=== PATIENT | male | born 1940 | race Caucasian/White ===

== ENCOUNTER 2017-09-09 11:34 | Inpatient (IN) | payer BC, MEDICARE ==
[~2017-09-09] VITALS: Ht 177.8 cm; Wt 62.6 kg
[~2017-09-09 11:34] MED LIST: ACET-7169 PO; ALEN70TA52 PO; AMLO10TA PO; ASPI325T49 PO; ATOR20TA40 PO; ATRO1TAB PO; BUS5 PO; CALC-567 PO; CALC-846 PO; CARV3.122 PO; CLON0.5T11 PO; COL250 PO; FERR325E14 PO; GABA300C PO; IMO2 PO; KEP500 PO; LACT1.4C PO; LANTUS SUBQ; MAGN400S60 PO; MULT-2472 PO; OMEP20TC12 PO; PHO667 PO; SENN-73 PO; SERT100T PO; SUCR1TAB35 PO; SYN.05 PO; TAMS0.4C96 PO; TRAZ-343 PO; ZOLP10TA1 PO
--- NOTE | 2017-09-09 11:34 | NUR ---
Patient JESSICA ACLMohan from [facility] accompanied by Mynor MCCLURE, transferred to bed 10. RN evaluating patient at bedside.
--- NOTE | 2017-09-09 11:35 | NUR ---
Dr. Guillaume evaluating patient at bedside.
--- NOTE | 2017-09-09 11:37 | NUR ---
Respiratory therapist evaluating patient at bedside.
--- NOTE | 2017-09-09 11:40 | NUR ---
76 year old male in room 10, artemio from [facility]. Pt is on pain management; found unresponsive; EMS called. Pt's blood pressure is low (63/51), Blood sugar 119, respirations 6. Lung sounds are diminished bilaterally. Pt has visible ineguial hernia. Pt is pale. Bradycarda at 52 bpm. LASHONDA, 3mm. Pt was able to respond to some commands - squeezing of left and right hand but unable to answer questions.
[2017-09-09] MEDS ORDERED: NACL 0.9% 1,000 ML IV ONE ×4 (11:42→13:10)
[2017-09-09 11:45] VITALS: BP_SYST 80
[2017-09-09] MEDS ORDERED: NALOXONE 0.4 MG/ML VIAL ONE (11:45)
--- NOTE | 2017-09-09 11:53 | NUR ---
boiler/chiller technician at bedside.
--- NOTE | 2017-09-09 11:56 | NUR ---
ABG DONE WITH NO INCIDENT. PLACED PT ON 3 L NC. NO SOB OR DISTRESS NOTED.
[2017-09-09] MEDS ORDERED: FURO-572 PO (11:59)
[2017-09-09] MEDS ORDERED: ORE25 PO (11:59)
[2017-09-09] MEDS ORDERED: ZOLP10TA1 PO (11:59)
[2017-09-09 12:40] LABS: PROTHROMBIN TIME 9.7 secs (10.8-13.4)
[2017-09-09 12:55] LABS: ANION GAP 12.1 (8-16); CARBON DIOXIDE 26.1 mmol/L (21-32); CHLORIDE 106 mmol/L (98-107); POTASSIUM 4.2 mmol/L (3.5-5.1); SODIUM SERUM 140 mmol/L (136-145)
[2017-09-09 12:56] LABS: GLUCOSE 110 mg/dL (74-106)
[2017-09-09 12:57] LABS: ASPARTATE AMINOTRANSFERASE 25 U/L (15-37); CREATININE 3.4 mg/dL (0.7-1.3); TOTAL BILIRUBIN 0.3 mg/dL (0.0-1.0); UREA NITROGEN, BLOOD 73 mg/dL (7-18)
[2017-09-09 12:58] LABS: ALBUMIN 2.5 g/dL (3.4-5.0); LIPASE 111 U/L (73-393)
[2017-09-09 13:18] LABS: BASOPHILS # (AUTO) 0.1 K/uL (0.00-0.22); BASOPHILS % (AUTO) 0.7 % (0.0-2.0); EOSINOPHILS # (AUTO) 0.3 K/uL (0-0.4); EOSINOPHILS % (AUTO) 2.6 % (0.0-4.0); LYMPHOCYTES # (AUTO) 1.6 K/uL (2.0-11.5); LYMPHOCYTES % (AUTO) 15.2 % (20.5-51.1); MEAN CORPUSCULAR HEMOGLOBIN 28 pg (27-31); MEAN CORPUSCULAR HGB CONC 32 g/dL (33-37); MEAN CORPUSCULAR VOLUME 87.4 fL (80-94); MONOCYTES # (AUTO) 0.8 K/uL (0.8-1.0); MONOCYTES % (AUTO) 7.2 % (1.7-9.3); NEUTROPHILS # (AUTO) 8.1 K/uL (1.8-7.7); NEUTROPHILS % (AUTO) 74.3 % (42.2-75.2); PLATELET COUNT (AUTO) 234 K/uL (140-450); RED BLOOD CELL COUNT(AUTO) 2.41 MIL/uL (4.20-6.10); WHITE BLOOD COUNT (AUTO) 10.9 K/uL (4.8-10.8)
[2017-09-09 13:21] LABS: HEMOGLOBIN 6.8 g/dL (12.0-18.0)
--- NOTE | 2017-09-09 13:22 | NUR ---
CENTRAL LINE CONSENT SIGNED BY TWO RN'S, MIGUELINA MADE AWARE.
[2017-09-09] MEDS ORDERED: NALOXONE 0.4 MG/ML VIAL IVP ONE (13:45)
--- NOTE | 2017-09-09 13:48 | NUR ---
Pt is resting in bed, denies all pain. Dr. Guillaume at bedside for re-evaluation
[2017-09-09] MEDS ORDERED: ZOLPIDEM 5 MG TAB PO PRN (14:25)
[2017-09-09] MEDS ORDERED: LORazepam 2 MG/ML VIAL IM/IVP PRN (14:25)
[2017-09-09] MEDS ORDERED: DOCUSATE SODIUM 100 MG GELCAP PO PRN (14:25)
[2017-09-09] MEDS ORDERED: MORPHINE SULFATE 2 MG/ML SYR IVP PRN (14:25)
[2017-09-09 14:28] LABS: APPEARANCE,URINE CLEAR (CLEAR); BILIRUBIN,URINE NEGATIVE (NEGATIVE); BLOOD, URINE NEGATIVE (NEGATIVE); COLOR,URINE YELLOW (YELLOW); LEUKOCYTE ESTERASE ,URINE NEGATIVE (NEGATIVE); NITRITE, URINE NEGATIVE (NEGATIVE); PH,URINE 5.5 (5.0-9.0); UGLUCOSE NEGATIVE (NEGATIVE)
[2017-09-09] MEDS ORDERED: ALBUTEROL SULFATE/IPRATROPIU 3 ML SOL IH PRN (14:30)
[2017-09-09] MEDS ORDERED: MECLIZINE 25 MG TAB PO PRN (14:40)
[2017-09-09 14:47] LABS: BARBITURATE, URINE NEGATIVE ng/ml (NEG <=200); BENZODIAZEPINE, URINE POSITIVE ng/mL (NEG <=200); CANNABINOID, URINE NEGATIVE ng/mL (NEG <=50); COCAINE, URINE NEGATIVE ng/mL (NEG <=300); OPIATE, URINE NEGATIVE ng/mL (NEG <=2000); PHENCYCLIDINE SCREEN,URINE NEGATIVE ng/mL (NEG <=25)
--- NOTE | 2017-09-09 14:53 | NUR ---
CALL PLACED TO [facility] AND SPOKE WITH DANIELLE BLACK AND PROVIDED VERBAL UPDATE ON PATIENTS CONDITION AND WILL FAX OVER CLINICAL REVIEW. FAX [phone] AND PHONE [phone] EXT [phone] Addendum: 09/09/17 at 1459 by Imani Rosado CM ENTERED INTO WRONG CHART
[2017-09-09] MEDS ORDERED: LOPERAMIDE 2 MG CAP PO SCH (15:00)
[2017-09-09] MEDS ORDERED: DIPHENOXYLATE HCL PO PRN (15:00)
[2017-09-09] MEDS ORDERED: ATROPINE PO PRN (15:00)
--- NOTE | 2017-09-09 15:00 | NUR ---
TRANSFERED PT TO ICU BED 1 FOR CONTINUATION OF CARE. GAVE BEDSIDE REPORT IN ICU. PT'S BP CONTINUTED TO RISE AND STABLIZE. PT WAS a&0X3 UPON TRANSFER.
--- NOTE | 2017-09-09 15:03 | NUR ---
RELIEVED REPORT FROM ER NURSE, MARIVEL. PT STABLE. SEGURA IN PLACE. TWO IV SIGHTS, PATENT AND ASYMPTOMATIC. PUPILS EQUAL AND REACTIVE TO LIGHT. PT A&Ox2. CONFUSED AND LETHARGIC AT TIMES HX ALZHEIMER. PT SKIN COOL AND DRY. LUNG SOUNDS CLEAR PT ON 3 L NC, S1S2 HEARD, BOWEL SOUNDS ACTIVE. SMALL WOUND ON SACRAL AREA AND REDNESS NOTED IN ABD SKIN FOLD. NO PAIN AT THIS TIME. WILL CONTINUE TO MONITOR. SINUS LADY ON MONITOR.
[2017-09-09 15:10] VITALS: BP 113/48
[2017-09-09] MEDS ORDERED: NALOXONE 0.4 MG/ML VIAL IVP STA (15:19)
[2017-09-09] MEDS ORDERED: DIPHENOXYLATE /ATROPINE 2.5 MG TAB PO PRN (15:25)
[2017-09-09] MEDS: NACL 0.9% 1,000 ML IV SCH (15:26)
[2017-09-09 15:44] LABS: MAGNESIUM 3.2 mg/dL (1.8-2.4)
[2017-09-09 15:45] LABS: THYROID STIMULATING HORMONE 3.21 uIU/mL (0.34-3.74)
[2017-09-09 16:00] VITALS: BP 115/37
[2017-09-09] MEDS ORDERED: INSULIN LISPRO SLIDING SCALE 100 UNITS/ML VIAL SUBQ PRN (16:05)
[2017-09-09] MEDS ORDERED: DEXTROSE 50% 50 ML SYR IVP PRN (16:05)
--- NOTE | 2017-09-09 16:18 | NUR ---
CALLED SISTER DEON MINA #[phone], LEFT MESSAGE AND CALL BACK #[phone]. WAITING FOR CALL BACK.
[2017-09-09] MEDS: BLOOD GLUCOSE MONITORING 1 DEV DEV FS SCH ×2 (17:05→21:44)
[2017-09-09] MEDS: HYDROcodone/APAP 5/325 MG 1 TAB TAB PO PRN ×2 (17:13→21:44)
[2017-09-09] MEDS: SUCRALFATE 1 GM TAB PO SCH (17:14)
[2017-09-09] MEDS ORDERED: LORazepam 2 MG/ML VIAL IVP SCH (17:32)
--- NOTE | 2017-09-09 17:45 | NUR ---
PT VSS. BLOOD TRANSFUSION STARTED AT 1715. EDUCATION GIVEN REGARDING BLOOD TRANSFUSION REACTION. PT MADE AWARE TO NOTIFY AND RASHES AND ITCHY BODY. NO TRANSFUSION REACTION NOTED DURING TRANSFUSION. VS REMAIN STABLE. SITE INTACT.
--- NOTE | 2017-09-09 17:45 | NUR ---
AT BEDSIDE TO PLACE CENTRAL LINE. WILL FOLLOW UP.
[2017-09-09 18:00] VITALS: BP 102/62
--- NOTE | 2017-09-09 18:30 | NUR ---
CENTRAL LINE PLACEMENT PROCEDURE COMPLETED BY DR. SPANN. ASSISTED NEEDED. NO ACTIVE BLEEDING AT SITE. DRESSING INTACT. PT TOLERATED WELL. KEPT PT IN COMFORTABLE POSITION. NO CHANGE IN CONDITION. WILL CONTINUE TO MONITOR.
[2017-09-09] MEDS ORDERED: DOPamine 400 MG/D5W PREMIX 250 ML IV SCH (18:40)
--- NOTE | 2017-09-09 18:44 | NUR ---
X-RAY AT BEDSIDE.
[2017-09-09] MEDS: ALBUTEROL SULFATE/IPRATROPIU 3 ML SOL IH SCH (18:54)
--- NOTE | 2017-09-09 18:55 | NUR ---
RT AT BEDSIDE.
--- NOTE | 2017-09-09 19:18 | NUR ---
US LEFT SIDE CAROTID ON PROCESS.
--- NOTE | 2017-09-09 19:21 | NUR ---
GAVE REPORT TO NIGHT NURSE PT STABLE AND ALERT.
--- NOTE | 2017-09-09 19:22 | NUR ---
RECEIVED REPORT FROM AM NURSE. PT AAO X 3. SOME EPISODES OF CONFUSION NOTED. FOLLOWS COMMANDS. ABLE TO VERBALIZE NEEDS. AFEBRILE. IV SITE L WRIST 22G. PATENT INTACT. IV SITE R AC 20G PATENT INTACT. R IJ TRIPLE LUMEN PATENT INTACT. LUNG SOUNDS CTA BILAT. ON NC 2LPM. SINUS LADY ON MONITOR. F/C IN PLACE. PATENT. SACRAL WOUND NOTED. ABD FOLD REDNESS NOTED. BED IN LOWEST POSITION. SEIZURE PRECAUTIONS IMPLEMENTED. CALL LIGHT WITHIN REACH. WILL CONTINUE TO MONITOR
[2017-09-09 20:00] VITALS: BP 121/52
[2017-09-09] MEDS: CALCIUM CARB/VIT-D 500 MG/200 IU 1 TAB PO SCH (20:13)
[2017-09-09] MEDS: DOCUSATE SODIUM 250 MG GELCAP PO SCH (20:13)
[2017-09-09] MEDS: FERROUS SULFATE 325 MG TABEC PO SCH (20:13)
[2017-09-09] MEDS: levETIRAcetam 500 MG TAB PO SCH (20:13)
[2017-09-09] MEDS: SERTRALINE 50 MG TAB PO SCH (20:14)
[2017-09-09] MEDS ORDERED: NON-FORMULARY ITEM (Calcium Carbonate/Vitamin D3 (Oyster Shell Calcium-Vit D Tab) 1 TAB) PO SCH (21:00)
[2017-09-09] MEDS ORDERED: ZOLPIDEM 10 MG TAB PO SCH ×2 (21:00)
[2017-09-09] MEDS ORDERED: CALCIUM CARBONATE PO SCH (21:00)
[2017-09-09] MEDS ORDERED: CARVEDILOL 3.125 MG TAB PO SCH (21:00)
[2017-09-09] MEDS ORDERED: NON-FORMULARY ITEM (Oxycodone HCl/Acetaminophen (Oxycodone-Acetaminophen 10-325) 1 TAB) PO SCH (21:00)
[2017-09-09] MEDS ORDERED: traZODone 50 MG TAB PO SCH (21:00)
[2017-09-09] MEDS ORDERED: VITAMIN D3 PO SCH (21:00)
[2017-09-09] MEDS ORDERED: [UNRECOGNIZED DRUG - OTHER] PO SCH (21:00)
--- NOTE | 2017-09-09 21:25 | NUR ---
CENTRAL LINE DISLODGED. NOTIFIED RESIDENTS OF CENTRAL LINE DISPLACEMENT. DR. PATE AT BEDSIDE TO SEE PATIENT. PATIENT CENTRAL LINE REMOVED AND DRESSING APPLIED TO RIJ SITE
[2017-09-09 22:00] VITALS: BP 116/60
[2017-09-09 22:20] LABS: BASOPHILS # (AUTO) 0.1 K/uL (0.00-0.22); BASOPHILS % (AUTO) 0.7 % (0.0-2.0); EOSINOPHILS # (AUTO) 0.3 K/uL (0-0.4); HEMOGLOBIN 7.7 g/dL (12.0-18.0); LYMPHOCYTES # (AUTO) 1.7 K/uL (2.0-11.5); LYMPHOCYTES % (AUTO) 16.9 % (20.5-51.1); MEAN CORPUSCULAR HEMOGLOBIN 29 pg (27-31); MEAN CORPUSCULAR HGB CONC 32 g/dL (33-37); MEAN CORPUSCULAR VOLUME 88.4 fL (80-94); MONOCYTES # (AUTO) 0.6 K/uL (0.8-1.0); MONOCYTES % (AUTO) 6.5 % (1.7-9.3); NEUTROPHILS # (AUTO) 7.3 K/uL (1.8-7.7); NEUTROPHILS % (AUTO) 72.9 % (42.2-75.2); PLATELET COUNT (AUTO) 232 K/uL (140-450); RED BLOOD CELL COUNT(AUTO) 2.71 MIL/uL (4.20-6.10); RED CELL DISTRIBUTION WIDTH 16.7 % (11.6-13.7)
--- NOTE | 2017-09-09 22:21 | NUR ---
LAB AT BEDSIDE FOR BLOOD DRAW. NO SIGNS OF ACUTE DISTRESS NOTED.
[2017-09-09 22:25] LABS: CHOL/HDL RATIO 2.7 (1-4.5)
[2017-09-10] VITALS (8 sets, daily range): BP systolic 103–134; BP diastolic 41–75
--- NOTE | 2017-09-10 01:30 | NUR ---
PT TAKEN TO RADIOLOGY FOR CT SCAN OF THE HEAD
[2017-09-10] MEDS: ONDANSETRON 4 MG/2 ML VIAL IM/IVP PRN ×2 (01:36→12:34)
--- NOTE | 2017-09-10 01:36 | NUR ---
PT C/O NAUSEA. ZOFRAN PRN GIVEN. WILL CONTINUE TO MONITOR.
--- NOTE | 2017-09-10 01:45 | NUR ---
CT SCAN RESULTS NEGATIVE. NO SIGNS OF ACUTE DISTRESS AT THIS TIME.
--- NOTE | 2017-09-10 03:44 | NUR ---
PT RESTING QUIETLY. NO SIGNS OF ACUTE DISTRESS AT THIS TIME.
[2017-09-10] MEDS: NACL 0.9% 1,000 ML IV SCH ×3 (04:03→23:17)
[2017-09-10] MEDS: LEVOTHYROXINE 0.05 MG TAB PO SCH (05:34)
--- NOTE | 2017-09-10 06:20 | NUR ---
RESIDENT AT BEDSIDE TO EVALUATE PATIENT. MADE AWARE OF CURRENT CONDITION. WILL CONTINUE TO FOLLOW UP ANY NEW ORDERS.
[2017-09-10] MEDS ORDERED: Z-GUARD PASTE TP ONE (06:25)
[2017-09-10] MEDS: BLOOD GLUCOSE MONITORING 1 DEV DEV FS SCH ×4 (06:31→20:49)
[2017-09-10 06:46] LABS: BASOPHILS # (AUTO) 0.1 K/uL (0.00-0.22); BASOPHILS % (AUTO) 0.6 % (0.0-2.0); EOSINOPHILS # (AUTO) 0.3 K/uL (0-0.4); EOSINOPHILS % (AUTO) 3.1 % (0.0-4.0); HEMATOCRIT 21.9 % (36-52); LYMPHOCYTES # (AUTO) 1.3 K/uL (2.0-11.5); LYMPHOCYTES % (AUTO) 12.9 % (20.5-51.1); MEAN CORPUSCULAR HEMOGLOBIN 28 pg (27-31); MEAN CORPUSCULAR HGB CONC 32 g/dL (33-37); MEAN CORPUSCULAR VOLUME 88.2 fL (80-94); MONOCYTES # (AUTO) 0.6 K/uL (0.8-1.0); MONOCYTES % (AUTO) 6.1 % (1.7-9.3); NEUTROPHILS # (AUTO) 7.7 K/uL (1.8-7.7); NEUTROPHILS % (AUTO) 77.3 % (42.2-75.2); PLATELET COUNT (AUTO) 227 K/uL (140-450); RED BLOOD CELL COUNT(AUTO) 2.48 MIL/uL (4.20-6.10); WHITE BLOOD COUNT (AUTO) 9.9 K/uL (4.8-10.8)
[2017-09-10 06:48] LABS: MAGNESIUM 2.7 mg/dL (1.8-2.4); PHOSPHORUS 4.7 mg/dL (2.5-4.9)
[2017-09-10 06:54] LABS: ANION GAP 10.5 (8-16); CARBON DIOXIDE 24.7 mmol/L (21-32); CHLORIDE 110 mmol/L (98-107); CREATININE 2.4 mg/dL (0.7-1.3); GLUCOSE 106 mg/dL (74-106); POTASSIUM 4.2 mmol/L (3.5-5.1); SODIUM SERUM 141 mmol/L (136-145)
[2017-09-10 06:55] LABS: UREA NITROGEN, BLOOD 63 mg/dL (7-18)
[2017-09-10] MEDS: ALBUTEROL SULFATE/IPRATROPIU 3 ML SOL IH SCH ×3 (06:58→19:35)
[2017-09-10] MEDS ORDERED: SIMETHICONE 80 MG TAB.CHEW PO SCH (07:00)
--- NOTE | 2017-09-10 07:14 | NUR ---
ENDORSED CARE TO INCOMING SHIFT. PT IN STABLE CONDITION. SO SIGNS OF ACUTE DISTRESS NOTED SIDE RAILS UP X 4. BED IN LOWEST POSITION. CALL LIGHT WITHIN REACH. SEIZURE PRECAUTIONS IMPLEMENTED.
--- NOTE | 2017-09-10 07:38 | NUR ---
RECEIVED REPORT FROM SENIOR RESEARCH CONSULTANT NURSE, GIOVANNA. PT OSIRIS SCORE -3, PROPOFOL RUNNING AT 25MCG. PT SKIN WARM AND DRY. PT PUPILS PINPOINT UNREACTIVE TO LIGHT. LUNG SOUNDS CLEAR SYMMETRICAL MOVEMENT, S1S2 HEARD SINUS RHYTHM ON MONITOR. ACTIVE BOWEL SOUNDS, NG TUBE IN PLACE ON RIGHT NARES VITAL AF RUNNING AT 50ML/HR. NO RESIDUAL NOTED. SEGURA CATH IN PLACE DRAINING WITH GRAVITY. WOUNDS ON LEFT LOWER LEG, BOTH DRESSINGS DRY AND INTACT. ETT TO VENT: FiO2 35% 500TV RATE 20 PEEP 8. WILL CLOSELY MONITOR Addendum: 09/10/17 at 0743 by Mecca Escalante RN WRONG PATIENT CHARTING
--- NOTE | 2017-09-10 07:43 | NUR ---
RECEIVED REPORT FROM LENS MATCHER NURSE, GIOVANNA. PT SKIN WARM AND DRY. PUPILS EQUAL AND REACTIVE TO LIGHT. 2L NC. LUNG SOUNDS CLEAR BILATERALLY. BOWEL SOUNDS ACTIVE IN ALL QUADRANTS. SEGURA CATH IN PLACE. IVS FLUSHED- PATENT AND ASYMPTOMATIC. BRADYCARDIA ON MONITOR. PT SLEEPING. WILL CONTINUE TO MONITOR.
[2017-09-10] MEDS ORDERED: CALCIUM ACETATE 667 MG TAB PO SCH (08:00)
--- NOTE | 2017-09-10 08:00 | NUR ---
RESIDENT GROUP ROUNDING. SPOKE TO DR VASQUEZ NO CHANGES AT THIS TIME. DR VASQUEZ STATED THAT THE DISPATCHER RADIO WAS INFORMED OF CONSULTATION. WILL FOLLOW UP
[2017-09-10] MEDS: MAGNESIUM HYDROXIDE 2400 MG/30 ML UDC PO SCH (08:26)
[2017-09-10] MEDS: DOCUSATE SODIUM 250 MG GELCAP PO SCH ×2 (08:26→20:49)
[2017-09-10] MEDS: VIT-B COMP/VIT-C/FOLIC ACID 1 TAB PO SCH (08:26)
[2017-09-10] MEDS: levETIRAcetam 500 MG TAB PO SCH ×2 (08:26→20:50)
[2017-09-10] MEDS: SUCRALFATE 1 GM TAB PO SCH ×3 (08:26→17:57)
[2017-09-10] MEDS: ASPIRIN 325 MG TAB PO SCH (08:27)
[2017-09-10] MEDS: TAMSULOSIN 0.4 MG CAP PO SCH (08:27)
[2017-09-10] MEDS: SENNA 8.6 MG TAB PO SCH (08:28)
[2017-09-10] MEDS: CALCIUM CARB/VIT-D 500 MG/200 IU 1 TAB PO SCH (08:28)
[2017-09-10] MEDS: SERTRALINE 50 MG TAB PO SCH ×2 (08:28→20:50)
[2017-09-10] MEDS: FERROUS SULFATE 325 MG TABEC PO SCH ×2 (08:29→20:50)
[2017-09-10] MEDS: GABAPENTIN 300 MG CAP PO SCH (08:36)
[2017-09-10] MEDS: FUROSEMIDE 20 MG TAB PO SCH (08:36)
[2017-09-10] MEDS ORDERED: Z-GUARD PASTE TP PRN (08:45)
[2017-09-10] MEDS ORDERED: amLODIPine 5 MG TAB PO SCH (09:00)
[2017-09-10] MEDS ORDERED: PANTOPRAZOLE 40 MG INJ VIAL IVP SCH (09:00)
[2017-09-10] MEDS ORDERED: NON-FORMULARY ITEM (Omeprazole (Omeprazole) 20 MG) PO SCH (09:00)
[2017-09-10] MEDS ORDERED: HYDROCHLOROTHIAZIDE 25 MG TAB PO SCH (09:00)
[2017-09-10] MEDS ORDERED: MULTIVITAMIN 1 TAB PO SCH (09:00)
[2017-09-10] MEDS ORDERED: NON-FORMULARY ITEM (Multivitamin (Multivitamins) 1 TAB) PO SCH (09:00)
[2017-09-10] MEDS ORDERED: PANTOPRAZOLE 40 MG TABEC PO SCH (09:00)
[2017-09-10] MEDS ORDERED: INSULIN LANTUS 100 UNITS/ML 10 ML VIAL SUBQ SCH (09:00)
[2017-09-10] MEDS ORDERED: NYSTATIN CRE 100 MU/GM 15 GM TUBE TP SCH (09:00)
[2017-09-10] MEDS: FAMOTIDINE 20 MG TAB PO SCH (09:24)
[2017-09-10] MEDS: amLODIPine 5 MG TAB PO SCH (09:25)
[2017-09-10] MEDS ORDERED: SODIUM FERRIC GLUCONATE 125 MG in NACL 0.9% 100 ML IV SCH (09:30)
[2017-09-10] MEDS: clonazePAM 0.5 MG TAB PO PRN (09:39)
[2017-09-10] MEDS: HYDROcodone/APAP 5/325 MG 1 TAB TAB PO PRN ×3 (09:40→19:09)
--- NOTE | 2017-09-10 09:45 | NUR ---
US TECH AT BEDSIDE
--- NOTE | 2017-09-10 10:25 | NUR ---
CALLED PHARMACY FOR NYSTATIN CREAM. THEY STATED THEY WOULD SEND IT OVER. WILL FOLLOW UP
--- NOTE | 2017-09-10 10:29 | NUR ---
PATIENT HAS BEEN SCREENED AND CATEGORIZED HIGH NUTRITION RISK. PATIENT WILL BE SEEN WITHIN 1-2 DAYS OF ADMISSION. 09/10/17 09/11/[address]
--- NOTE | 2017-09-10 11:07 | NUR ---
DR TIMUR CARLISLE IN TO SEE PATIENT WILL FOLLOW UP ON ORDERS
--- NOTE | 2017-09-10 11:50 | NUR ---
PT TRANSFERRED FROM ICU, BEDSIDE REPORT GIVEN FROM ICU NURSE RAJEEV. 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 TWO IVS, RIGHT WRIST, 22 G, DRESSING SOILED, DRESSING CHANGED, WILL CONTINUE TO MONITOR. IV IN LEFT AC 18 G, DRESSING INTACT. SMALL SKIN TEAR REPORTED ON SACRAL AREA. PT ON 1 L NC, SEGURA IN PLACE DRAINING CLEAR YELLOW URINE, REPORTED 800 ML OUTPUT, NO REPORTED BM, CALL LIGHT WITHIN REACH, UPDATED BOARD WILL CONTINUE TO MONITOR.
--- NOTE | 2017-09-10 11:50 | NUR ---
report given to tele nurse, summer. pt stable and alert.
[2017-09-10] MEDS ORDERED: PROBIOTIC SCREEN 1 EA MISC MC PRN (11:55)
--- NOTE | 2017-09-10 12:34 | NUR ---
PT C/O FEELING NAUSEOUS, MEDICATED WITH ZOFRAN ACCORDING TO BRIAN ARRIOLA.
--- NOTE | 2017-09-10 14:28 | NUR ---
PT REQUESTED NORCO FOR PAIN, MEDICATED ACCORDING TO DRS ORDER. PT STATED "I WANT TO ". WHEN ASKED WHY? PT STATED "I GIVE UP. WILL CONTINUE TO MONITOR, CALL LIGHT WITHIN REACH.
--- NOTE | 2017-09-10 14:35 | NUR ---
FAXED INITIAL REVIEW TO ALIC[facility] DE [facility] [phone] PHONE [phone] OPT 1 OPT 5
--- NOTE | 2017-09-10 14:42 | NUR ---
WOUND CARE EVALUATION NOTE: REASON FOR EVALUATION: LOW MARILU SCALE AND ABDOMEN RASHES SKIN ASSESSMENT DONE ON THIS 76Y/O MALE PATIENT TO [facility], WITH INITIAL DIAGNOSIS OF ALOC. PAST MEDICAL HISTORY INCLUDE HYPERTENSION, COPD, ALZHEIMER, SEIZURE AND DIABETIC. ALL ABOVE INFORMATION WAS OBTAINED FROM THE ADMISSION H&P. LABS ARE WBC 9.9, H/H 7.0/21.9, GLUCOSE 106 AND ALBUMIN 2.5. PATIENT IS ALERT BUT CONFUSE. SKIN WARM TO TOUCH WNL, SKIN TURGOR DRY. CAPILLARY REFILLED <3 SEC X 10 TOES. TOENAILS ARE THICKENED, NO HAIR GROWTH, BILATERAL DORSAL PEDAL PULSES PRESENT. PT. HAS F/C WITH MODERATE AMOUNT ADELA COLOR URINE OUTPUT. PLAN OF CARE DISCUSSED WITH PRIMARY RN AND PT. PT NEEDS REINFORCE OF TEACHING. CLARIFICATION: NO PRESSURE INJURY TO SACRALCOCCYX, SACRAL COCCYX REDNESS FROM MAD INTEGUMENTARY: -MID ABDOMEN LARGE HERNIA -INTERTRIGINOUS TO R/L GROINS AND LOWER ABDOMINAL FOLDS -MOISTURE ASSOCIATE DERMATITIS (MAD) TO SACRALCOCCYX, INNER BUTTOCKS AND SCROTUM RECOMMENDATIONS: -CLEANSE R/L GROINS, LOWER ABDOMINAL FOLDS WITH SOAP AND WATER, APPLY NYSTATIN POWDER BID AND PRN IF SOILING -TURN AND REPOSITION PATIENT Q 2H. -APPLY Z-GUARD TO SACRALCOCCYX, INNER BUTTOCKS AND SCROTUM BIDWC AND LEAVE IT OPEN TO AIR. -ASSESS AND MONITOR SKIN CONDITION DURING POSITION CHANGE -OFFLOAD BILATERAL HEELS BY PLACING PILLOWS UNDER CALVES AT ALL TIMES, UNLESS OTHERWISE CONTRAINDICATED -PRESSURE REDISTRIBUTION SURFACE THERAPY -KEEP SKIN CLEAN AND DRY AT ALL TIMES. MAY APPLY BODY LOTION TO DRYNESS AREA. RECOMMENDATIONS DISCUSSED WITH PRIMARY RN WILL FOLLOW UP PATIENT PRN. PLEASE CONTACT WOUND CARE NURSE FOR ANY CONCERNS, QUESTIONS AND CHANGES IN SKIN CONDITION.
--- NOTE | 2017-09-10 15:01 | NUR ---
09/10/17 RD INITIAL ASSESSMENT COMPLETED PLEASE REFER TO NUTRITION ASSESSMENT UNDER CARE ACTIVITY FOR ESTIMATED NUTRITIONAL NEEDS. 1. RECOMMEND RENAL, CCHO 60GM DIET TOLERATED 2. RECOMMEND NEPRO QD WITH MEAL 3. CONTINUE TO ENCOURAGE INCREASED PO INTAKE 4. RD TO FOLLOW-UP 2-3 DAYS, HIGH RISK JOHNSON REINA, LUCINA
--- NOTE | 2017-09-10 15:20 | NUR ---
FOUND PT ATTEMPTING TO CHOKE SELF WITH NC, STAYED WITH PT CALLED FOR HELP. PT STATED "I WANT TO , PLEASE HELP ME KILL MYSELF. I WILL PULL OUT IV AND MY SEGURA, I WILL GET A KNIFE IF I HAVE TO ". NOTIFIED.
[2017-09-10] MEDS ORDERED: LORazepam 2 MG/ML VIAL IVP PRN (17:32)
--- NOTE | 2017-09-10 17:35 | NUR ---
PT STATED "I WANT TO HAVE MY ENEMA AND CHEST X RAY TOMORROW".
--- NOTE | 2017-09-10 18:40 | NUR ---
CALLED PHARMACY TO REPORT MYCOSTATIN WAS NOT GIVEN. NEEDS CLARIFICATION ON ORDER. WILL FOLLOW UP AND ENDORSE TO FUNCTIONAL CONSULTANT NURSE.
--- NOTE | 2017-09-10 19:10 | NUR ---
GAVE BEDSIDE REPORT TO HEATING EQUIPMENT REPAIRER RN. PT STABLE.
--- NOTE | 2017-09-10 19:11 | NUR ---
RECEIVED REPORT FROM DAY SHIFT NURSE SUMMER-RN AT BEDSIDE. 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 TWO IVS, RIGHT WRIST, 22 G, DRESSING SOILED, DRESSING CHANGED, WILL CONTINUE TO MONITOR. IV IN LEFT AC 18 G, DRESSING INTACT. SMALL SKIN TEAR REPORTED ON SACRAL AREA. PT ON 1 L NC, SEGURA IN PLACE DRAINING CLEAR YELLOW URINE, NO REPORTED BM, DISCUSSED PLAN OF CARE AND PT VERBALIZED UNDERSTANDING. NO S/S OF RESPIRATORY DISTRESS OR DISCOMFORT NOTED AT THIS TIME. WHITE BOARD UPDATED. BED IN LOWEST POSITION, BED BREAKS ON, BOTH SIDE RAILS UP. BED SIDE TABLE AND CALL LIGHT ARE WITHIN REACH. WILL CONTINUE TO MONITOR.
--- NOTE | 2017-09-10 20:00 | NUR ---
VITAL SIGNS TAKEN AND TOLERATED WELL. NO S/S OF RESPIRATORY DISTRESS OR DISCOMFORT NOTED AT THIS TIME. WILL CONTINUE TO MONITOR.
[2017-09-10] MEDS: ZOLPIDEM 5 MG TAB PO SCH (20:50)
--- NOTE | 2017-09-10 20:50 | NUR ---
BLOOD GLUCOSE 102-NO INSULIN COVERAGE NEEDED.
[2017-09-10] MEDS: traZODone 50 MG TAB PO SCH (20:51)
--- NOTE | 2017-09-10 20:55 | NUR ---
SCHEDULED MEDICATION GIVEN AND TOLERATED WELL. NYSTATIN POWDER NOT GIVEN BECAUSE IT IS NOT FOUND. DR. QUAN AWARE AND IS TO PLACE NEW ORDER. NO S/S OF RESPIRATORY DISTRESS OR DISCOMFORT NOTED AT THIS TIME. WILL CONTINUE TO MONITOR.
[2017-09-10] MEDS: oxyCODONE/APAP 5/325 MG 1 TAB TAB PO PRN (22:03)
--- NOTE | 2017-09-10 22:05 | NUR ---
PT REQUESTING PERCOCET FOR PAIN-GIVEN AND TOLERATED WELL. NO S/S OF RESPIRATORY DISTRESS OR DISCOMFORT NOTED AT THIS TIME. WILL CONTINUE TO MONITOR.
--- NOTE | 2017-09-10 23:20 | NUR ---
NEW BAG OF IVF HUNG. PT TOLERATED WELL. NO S/S OF RESPIRATORY DISTRESS OR DISCOMFORT NOTED AT THIS TIME. WILL CONTINUE TO MONITOR.
[2017-09-11] VITALS: BP 108/38
--- NOTE | 2017-09-11 | NUR ---
VITAL SIGNS TAKEN AND TOLERATED WELL. NO S/S OF RESPIRATORY DISTRESS OR DISCOMFORT NOTED AT THIS TIME. WILL CONTINUE TO MONITOR.
--- NOTE | 2017-09-11 02:00 | NUR ---
MATERIAL WORKER ASSISTED WITH PULLING UP PT IN BED TO BE MORE COMFORTABLE. PT TOLERATED WELL. NO S/S OF RESPIRATORY DISTRESS OR DISCOMFORT NOTED AT THIS TIME. WILL CONTINUE TO MONITOR.
[2017-09-11 04:00] VITALS: BP 106/32
--- NOTE | 2017-09-11 04:00 | NUR ---
PT SLEEPING AT THIS TIME. NO S/S OF RESPIRATORY DISTRESS OR DISCOMFORT NOTED AT THIS TIME. WILL CONTINUE TO MONITOR.
--- NOTE | 2017-09-11 06:00 | NUR ---
PT SLEEPING AT THIS TIME. NO S/S OF RESPIRATORY DISTRESS OR DISCOMFORT NOTED AT THIS TIME. WILL CONTINUE TO MONITOR.
[2017-09-11] MEDS: LEVOTHYROXINE 0.05 MG TAB PO SCH (06:27)
--- NOTE | 2017-09-11 06:30 | NUR ---
SCHEDULED MEDICATION SYNTHROID GIVEN AND TOLERATED WELL. NO S/S OF RESPIRATORY DISTRESS OR DISCOMFORT NOTED AT THIS TIME. WILL CONTINUE TO MONITOR.
[2017-09-11] MEDS: ALBUTEROL SULFATE/IPRATROPIU 3 ML SOL IH SCH ×3 (06:56→18:52)
--- NOTE | 2017-09-11 06:56 | NUR ---
pt sleeping with no signs of distress notes at this time no hhn given
[2017-09-11 07:00] LABS: MEAN CORPUSCULAR HEMOGLOBIN 29 pg (27-31); MEAN CORPUSCULAR HGB CONC 34 g/dL (33-37); PLATELET COUNT (AUTO) 214 K/uL (140-450); RED BLOOD CELL COUNT(AUTO) 2.27 MIL/uL (4.20-6.10)
[2017-09-11] MEDS: BLOOD GLUCOSE MONITORING 1 DEV DEV FS SCH ×4 (07:12→21:04)
--- NOTE | 2017-09-11 07:27 | NUR ---
RECEIVED REPORT FROM RV PARTS AND SERVICE DIRECTOR RN. PT IN STABLE CONDITION, AWAKE AND RESTING IN BED. AAO X 3. ON CONTACT PRECAUTIONS FOR HX MRSA OF NARES. PT IS NON-AMBULATORY. IV SITE PATENT AND RUNNING IVF PER MD ORDERS. ON 2L NC. F/C IN PLACE, DRAINING URINE. RASH ON ABDOMEN AND R/L GROIN. LUNG SOUNDS ARE DIMINISHED. HEART RHYTHM IS REGULAR. VITALS ARE STABLE AT THIS TIME. ALL SAFETY MEASURES IN PLACE, WILL CONTINUE TO MONITOR.
--- NOTE | 2017-09-11 07:30 | NUR ---
ENDORSED PT CARE TO DAY SHIFT NURSE TEJA-JUDY FOR CONTINUITY OF CARE.
[2017-09-11 07:42] LABS: ANION GAP 9.7 (8-16); CARBON DIOXIDE 26.9 mmol/L (21-32); CHLORIDE 110 mmol/L (98-107); CREATININE 1.7 mg/dL (0.7-1.3); GLUCOSE 102 mg/dL (74-106); POTASSIUM 4.6 mmol/L (3.5-5.1); SODIUM SERUM 142 mmol/L (136-145); UREA NITROGEN, BLOOD 36 mg/dL (7-18)
[2017-09-11 07:43] LABS: HEMATOCRIT 19.7 % (36-52); HEMOGLOBIN 6.6 g/dL (12.0-18.0)
[2017-09-11 07:44] LABS: LYMPHOCYTES % (MANUAL) 20 % (20-46); MONOCYTES % (MANUAL) 8 % (5-12)
[2017-09-11 07:45] LABS: EOSINOPHILS % (MANUAL) 4 % (0-4)
[2017-09-11 07:52] LABS: MAGNESIUM 2.3 mg/dL (1.8-2.4); PHOSPHORUS 3.4 mg/dL (2.5-4.9)
[2017-09-11 08:00] VITALS: BP 120/63
[2017-09-11] MEDS: MAGNESIUM HYDROXIDE 2400 MG/30 ML UDC PO SCH (08:55)
[2017-09-11] MEDS: GABAPENTIN 300 MG CAP PO SCH (08:56)
[2017-09-11] MEDS: ASPIRIN 325 MG TAB PO SCH (08:56)
[2017-09-11] MEDS: oxyCODONE/APAP 5/325 MG 1 TAB TAB PO PRN ×3 (08:56→21:02)
[2017-09-11] MEDS: SERTRALINE 50 MG TAB PO SCH ×2 (08:57→20:59)
[2017-09-11] MEDS: levETIRAcetam 500 MG TAB PO SCH ×2 (08:57→20:59)
[2017-09-11] MEDS: VIT-B COMP/VIT-C/FOLIC ACID 1 TAB PO SCH (08:58)
[2017-09-11] MEDS: TAMSULOSIN 0.4 MG CAP PO SCH (08:58)
[2017-09-11] MEDS: SUCRALFATE 1 GM TAB PO SCH ×3 (08:58→17:32)
[2017-09-11] MEDS: SENNA 8.6 MG TAB PO SCH (08:58)
[2017-09-11] MEDS: FERROUS SULFATE 325 MG TABEC PO SCH ×2 (08:58→21:00)
[2017-09-11] MEDS: FUROSEMIDE 20 MG TAB PO SCH (08:59)
[2017-09-11] MEDS: FAMOTIDINE 20 MG TAB PO SCH (08:59)
[2017-09-11] MEDS: DOCUSATE SODIUM 250 MG GELCAP PO SCH ×2 (08:59→21:00)
[2017-09-11] MEDS ORDERED: ACETAMINOPHEN 325 MG TAB PO SCH (09:00)
[2017-09-11] MEDS: amLODIPine 5 MG TAB PO SCH (09:00)
--- NOTE | 2017-09-11 10:14 | NUR ---
PT REFUSED TURNING BY COLLATERAL ANALYST. EXPLAINED THE RISKS OF LAYING IN ONE POSITION FOR LONG PERIODS OF TIME IT RELATES TO SKIN INTEGRITY AND BLOOD FLOW. BUT PT CONTINUES TO REFUSE, HOWEVER STATES THAT HE WILL CONSIDER BEING TURNED LATER TODAY. WILL CONTINUE TO STRESS THE IMPORTANCE OF TURNING Q2H.
--- NOTE | 2017-09-11 10:16 | NUR ---
BLOOD PRESSURE IS 144/60, HR 75. PT IS ANXIOUS. WILL ADMINISTER KLONOPIN PER MD ORDERS. Addendum: 09/11/17 at 1715 by Cynthia Richards Meng RN THIS IS REAL TIME ADMINISTRATION OF KLONOPIN. MED ADMINISTRATION WAS NOT SAVED IN EMAR, THUS EMAR TIMING IS INCORRECT. WILL HAVE OPTICAL MODEL MAKER AND TESTER RN BE AWARE.
--- NOTE | 2017-09-11 11:16 | NUR ---
PT IS SLEEPING IN BED, AROUSABLE BY VOICE. TIME IS ONE HOUR AFTER KLONOPIN ADMINISTRATION.
[2017-09-11] MEDS: clonazePAM 0.5 MG TAB PO PRN ×2 (11:43→21:22)
--- NOTE | 2017-09-11 11:55 | NUR ---
ZGUARD APPLIED TO ABDOMINAL FOLDS AND SCROTUM. PT CONTINUES TO REFUSE TURNING, THUS UNABLE TO APPLY ZGUARD TO SACRALCOCCYCX AND BUTTOCK. PILLOW PLACED UNDER R/L CALVES.
[2017-09-11 12:00] VITALS: BP 146/62
[2017-09-11] MEDS: ACETAMINOPHEN 325 MG TAB PO PRN (12:04)
--- NOTE | 2017-09-11 12:25 | NUR ---
CALLED LAB/BLOOD BANK FOR STATUS UPDATE ON UNIT OF BLOOD. LAB STATES THAT BLOOD BANK IS AT LUNCH AND WILL BE BACK IN 30 MINUTES.
--- NOTE | 2017-09-11 12:58 | NUR ---
PAUL AT BEDSIDE TO CHANGE SOILED SHEETS. PT CONTINUES TO BE TURNED FOR WOUND CARE/ASSESSMENT. STATES THAT HE FEELS "TIRED" AND "NO MOTIVATION TODAY". Addendum: 09/11/17 at 1307 by Cynthia Richards Meng, RN OFFERED WOUND CARE THREE TIMES. PT CONTINUES TO REFUSE TO BE TURNED FOR WOUND CARE. STATES THAT HE IS "TIRED" AND "NO MOTIVATION TODAY". BENEFITS OF SKIN CARE DISCUSSED WITH PATIENT. RISKS OF NOT PERFORMING SKIN CARE EXPLAINED TO PT. PT VERBALIZED UNDERSTANDING.
--- NOTE | 2017-09-11 13:12 | NUR ---
PT SLEEPING WITH NO SIGNS OF DISTRESS NOTED AT THIS TIME, NO HHN GIVEN
[2017-09-11] MEDS ORDERED: MAGNESIUM CITRATE 300 ML BTL PO SCH (14:00)
--- NOTE | 2017-09-11 14:00 | NUR ---
Subsurface Augmentee Operator Notes: I attempted to contact patient's sister Tita Hood at . She was not available and I left her a voice mail MSG with my Contact number and a request for a call.
--- NOTE | 2017-09-11 14:10 | NUR ---
Project Management Analyst Notes: I Contacted [facility] at I spoke to Tamela facility staff, I asked to speak to Chasity or admissions department. Per Tamela the admission department is not open today and all calls go to her. I introduced my self and role as a gas pit worker. I informed Tamela about patient status and heads up to possible D/C tomorrow. Per Tamela Patient has been a resident in their facility for some time and he will be able to return when he is ready and clear for a discharge. Per Tamela Usually their facility is able to transport Patient back to the facility at D/C day before 14:00. Tamela stated that she will confirm and will call back to coordinate discharge and time. I Provided Taemla with Telle unit number to contact when patient is ready for D/C. She agreed took number and thanked me for my assistance.
--- NOTE | 2017-09-11 14:10 | NUR ---
CALLED BLOOD BANK FOR UPDATE ON UNIT OF BLOOD. BLOOD BANK SAYS THE TRANSFUSION IS CANCELLED. CLARIFIED WITH DR. ZELAYA, WHO CONFIRMS THAT BLOOD TRANSFUSION ORDER IS STILL ACTIVE. CALLED AND NOTIFIED BLOOD BANK THAT TRANSFUSION ORDER IS STILL ACTIVE. BLOOD BANK STATES BLOOD WILL NEED TO BE PREPARED AND WILL BE READY AFTER 30 MIN TO AN HOUR.
--- NOTE | 2017-09-11 14:42 | NUR ---
PANTERA FROM BLOOD BANK CALLED TO SAY THAT BLOOD IS READY. PHYSICAL THERAPIST IS WITH PT NOW.
--- NOTE | 2017-09-11 15:00 | NUR ---
OFFERED TO PERFORM WOUND CARE TO PATIENT AT THIS TIME. PT REFUSED AGAIN AND SAYS TO PERFORM WOUND CARE "AFTER BLOOD TRANSFUSION". WILL ENDORSE TO B2B ACCOUNT EXECUTIVE RN.
--- NOTE | 2017-09-11 15:20 | NUR ---
VITALS STABLE. WILL PREPARE TO START BLOOD TRANSFUSION.
--- NOTE | 2017-09-11 15:40 | NUR ---
BLOOD TRANSFUSION STARTED. VERIFIED BLOOD AND PATIENT ID WITH SECOND RN.
[2017-09-11 16:00] VITALS: BP 126/57
--- NOTE | 2017-09-11 16:11 | NUR ---
TIME IS 30 MINUTES AFTER START OF BLOOD TRANSFUSION. PATIENT IS AWAKE, ALERT, AND COMMUNICATING. STATES THAT HE "FEELS GOOD". DENIES PAIN AND DISCOMFORT AT THIS TIME. VITALS ARE STABLE. WILL CONTINUE TO MONITOR.
--- NOTE | 2017-09-11 17:43 | NUR ---
PT STATES THAT HE "FEELS BETTER" AND HAS "MORE ENERGY COMPARED TO EARLIER TODAY". DENIES PAIN AND DISCOMFORT. WILL CONTINUE TO MONITOR.
--- NOTE | 2017-09-11 18:45 | NUR ---
BLOOD TRANSFUSION COMPLETED. PT IN STABLE CONDITION. WATCHING TV IN BED.
--- NOTE | 2017-09-11 19:20 | NUR ---
ENDORSED PLAN OF CARE TO BUTTON BUTTONHOLE MARKER RN. PATIENT IS IN STABLE CONDITION.
--- NOTE | 2017-09-11 19:21 | NUR ---
RECEIVED REPORT FROM DAY SHIFT NURSE TEJA-RN AT BEDSIDE. PT RESTING IN BED WATCHING TV, AOX2. NO LONGER ON ISOLATION PRECAUTIONS. TWO IVS, RIGHT WRIST, 22 G, DRESSING SOILED, DRESSING CHANGED, WILL CONTINUE TO MONITOR. IV IN LEFT AC 18 G, DRESSING INTACT. SMALL SKIN TEAR REPORTED ON SACRAL AREA. PT ON 1 L NC, SEGURA IN PLACE DRAINING CLEAR YELLOW URINE, DISCUSSED PLAN OF CARE AND PT VERBALIZED UNDERSTANDING. NO S/S OF RESPIRATORY DISTRESS OR DISCOMFORT NOTED AT THIS TIME. WHITE BOARD UPDATED. BED IN LOWEST POSITION, BED BREAKS ON, BOTH SIDE RAILS UP. BED SIDE TABLE AND CALL LIGHT ARE WITHIN REACH. WILL CONTINUE TO MONITOR.
[2017-09-11 20:00] VITALS: BP 132/52
--- NOTE | 2017-09-11 20:00 | NUR ---
VITAL SIGNS TAKEN AND TOLERATED WELL. NO S/S OF RESPIRATORY DISTRESS OR DISCOMFORT NOTED AT THIS TIME. WILL CONTINUE TO MONITOR.
[2017-09-11] MEDS: ZOLPIDEM 5 MG TAB PO SCH (20:59)
[2017-09-11] MEDS: traZODone 50 MG TAB PO SCH (21:02)
[2017-09-11] MEDS: NYSTATIN POW 100 MU/GM 15 GM BTL TP SCH (21:03)
--- NOTE | 2017-09-11 21:05 | NUR ---
BLOOD GLUCOSE 108-NO INSULIN COVERAGE NEEDED. SCHEDULED MEDICATION GIVEN AND TOLERATED WELL. PT C/O PAIN 08/17- PERCOCET GIVEN FOR HIS GENERALIZED PAIN. PT TOLERATED WELL. NO S/S OF RESPIRATORY DISTRESS. WILL CONTINUE TO MONITOR.
[2017-09-11] MEDS: ONDANSETRON 4 MG/2 ML VIAL IM/IVP PRN (21:22)
--- NOTE | 2017-09-11 21:25 | NUR ---
PT C/O NAUSEA AND ANXIETY. KLONOPIN AND ZOFRAN GIVEN AND TOLERATED WELL. NO S/S OF RESPIRATORY DISTRESS. WILL CONTINUE TO MONITOR.
[2017-09-11] MEDS: NACL 0.9% 1,000 ML IV SCH (22:57)
--- NOTE | 2017-09-11 23:00 | NUR ---
PT SLEEPING IN BED. NO S/S OF RESPIRATORY DISTRESS OR DISCOMFORT NOTE THIS TIME. WILL CONTINUE TO MONITOR.
[2017-09-12] VITALS: BP 135/65
--- NOTE | 2017-09-12 | NUR ---
VITAL SIGNS TAKEN AND TOLERATED WELL. ADJUSTED NASAL CANNULA IT WAS NOT PROPERLY PLACED CAUSING OXYGEN SATURATIONS TO DROP IN THE 80'S HOWEVER NOW SATING AT 91%. NO S/S OF RESPIRATORY DISTRESS OR DISCOMFORT NOTED AT THIS TIME. WILL CONTINUE TO MONITOR.
--- NOTE | 2017-09-12 01:00 | NUR ---
PT REFUSED WOUND ASSESSMENT AND CONTINUED TO SLEEP. WILL TRY LATER. NO S/S OF RESPIRATORY DISTRESS OR DISCOMFORT NOTED AT THIS TIME. WILL CONTINUE TO MONITOR.
--- NOTE | 2017-09-12 03:00 | NUR ---
PT CONTINUES TO SLEEP. NO S/S OF RESPIRATORY DISTRESS OR DISCOMFORT NOTED AT THIS TIME. WILL CONTINUE TO MONITOR.
[2017-09-12 04:00] VITALS: BP 154/66
--- NOTE | 2017-09-12 04:00 | NUR ---
VITAL SIGNS TAKEN AND TOLERATED WELL. PT CONTINUES TO SLEEP. NO S/S OF RESPIRATORY DISTRESS OR DISCOMFORT NOTED AT THIS TIME. WILL CONTINUE TO MONITOR.
[2017-09-12] MEDS: LEVOTHYROXINE 0.05 MG TAB PO SCH (05:29)
[2017-09-12] MEDS: BLOOD GLUCOSE MONITORING 1 DEV DEV FS SCH ×4 (05:32→21:17)
--- NOTE | 2017-09-12 05:35 | NUR ---
SCHEDULED MEDICATION SYNTHROID GIVEN AND TOLERATED WELL. BLOOD GLUCOSE 99-NO INSULIN COVERAGE NEEDED. NO S/S OF RESPIRATORY DISTRESS OR DISCOMFORT NOTED AT THIS TIME. WILL CONTINUE TO MONITOR.
[2017-09-12] MEDS: ALBUTEROL SULFATE/IPRATROPIU 3 ML SOL IH SCH ×3 (06:51→19:03)
--- NOTE | 2017-09-12 07:25 | NUR ---
ENDORSED PT CARE TO DAY SHIFT NURSE TEJA-JUDY FOR CONTINUITY OF CARE.
--- NOTE | 2017-09-12 07:30 | NUR ---
RECEIVED REPORT FROM GOLD LEAF PRINTER RN. PATIENT IS RESTING IN BED, AROUSABLE BY VOICE. NO COMPLAINTS OF PAIN OR DISCOMFORT AT THIS TIME. REDNESS ON ABDOMEN AND SACROCOCCYX REGION. IV SITE PATENT AND RUNNING IVF PER MD ORDERS. F/C IN PLACE, DRAINING URINE. ON 2L NC. LUNGS CTA. HEART RHYTHM IS REGULAR. BS ACTIVE. ALL SAFETY PRECAUTIONS IN PLACE, WILL CONTINUE TO MONITOR.
[2017-09-12 07:39] LABS: BASOPHILS % (AUTO) 0.5 % (0.0-2.0); EOSINOPHILS # (AUTO) 0.3 K/uL (0-0.4); EOSINOPHILS % (AUTO) 4.1 % (0.0-4.0); HEMOGLOBIN 8.1 g/dL (12.0-18.0); LYMPHOCYTES # (AUTO) 1.5 K/uL (2.0-11.5); LYMPHOCYTES % (AUTO) 18.3 % (20.5-51.1); MEAN CORPUSCULAR HEMOGLOBIN 28 pg (27-31); MEAN CORPUSCULAR HGB CONC 33 g/dL (33-37); MEAN CORPUSCULAR VOLUME 87.3 fL (80-94); MONOCYTES # (AUTO) 0.7 K/uL (0.8-1.0); MONOCYTES % (AUTO) 9.1 % (1.7-9.3); NEUTROPHILS # (AUTO) 5.4 K/uL (1.8-7.7); PLATELET COUNT (AUTO) 229 K/uL (140-450); RED BLOOD CELL COUNT(AUTO) 2.86 MIL/uL (4.20-6.10); RED CELL DISTRIBUTION WIDTH 16.7 % (11.6-13.7); WHITE BLOOD COUNT (AUTO) 7.9 K/uL (4.8-10.8)
[2017-09-12 07:58] LABS: MAGNESIUM 2.5 mg/dL (1.8-2.4); PHOSPHORUS 4.1 mg/dL (2.5-4.9)
[2017-09-12 07:59] LABS: ANION GAP 8.3 (8-16); CARBON DIOXIDE 30.2 mmol/L (21-32); CHLORIDE 110 mmol/L (98-107); CREATININE 1.5 mg/dL (0.7-1.3); GLUCOSE 113 mg/dL (74-106); POTASSIUM 4.5 mmol/L (3.5-5.1); SODIUM SERUM 144 mmol/L (136-145); UREA NITROGEN, BLOOD 26 mg/dL (7-18)
[2017-09-12 08:00] VITALS: BP 162/75
[2017-09-12] MEDS: clonazePAM 0.5 MG TAB PO PRN ×2 (08:35→21:08)
--- NOTE | 2017-09-12 08:35 | NUR ---
KLONOPIN ADMINISTERED FOR ANXIETY. WILL CONTINUE TO MONITOR.
[2017-09-12] MEDS: oxyCODONE/APAP 5/325 MG 1 TAB TAB PO PRN ×3 (08:36→21:09)
--- NOTE | 2017-09-12 08:38 | NUR ---
PATIENT COMPLAINING OF PAIN AND ANXIETY. ADMINISTERED PERCOCET AND KLONOPIN PER MD ORDERS.
[2017-09-12] MEDS ORDERED: ESCITALOPRAM 20 MG TAB PO SCH (09:26)
--- NOTE | 2017-09-12 09:35 | NUR ---
PT SLEEPING. ONE HOUR AFTER KLONOPIN ADMINISTRATION.
[2017-09-12] MEDS: GABAPENTIN 300 MG CAP PO SCH (10:15)
[2017-09-12] MEDS: DOCUSATE SODIUM 250 MG GELCAP PO SCH ×2 (10:16→21:05)
[2017-09-12] MEDS: TAMSULOSIN 0.4 MG CAP PO SCH (10:17)
[2017-09-12] MEDS: levETIRAcetam 500 MG TAB PO SCH ×2 (10:17→21:06)
[2017-09-12] MEDS: FERROUS SULFATE 325 MG TABEC PO SCH ×2 (10:17→21:06)
[2017-09-12] MEDS: VIT-B COMP/VIT-C/FOLIC ACID 1 TAB PO SCH (10:17)
[2017-09-12] MEDS: FAMOTIDINE 20 MG TAB PO SCH (10:17)
[2017-09-12] MEDS: ASPIRIN 325 MG TAB PO SCH (10:18)
[2017-09-12] MEDS: SERTRALINE 50 MG TAB PO SCH ×2 (10:18→21:05)
[2017-09-12] MEDS: SENNA 8.6 MG TAB PO SCH (10:18)
[2017-09-12] MEDS: FUROSEMIDE 20 MG TAB PO SCH (10:18)
[2017-09-12] MEDS: amLODIPine 5 MG TAB PO SCH (10:19)
[2017-09-12] MEDS: SUCRALFATE 1 GM TAB PO SCH ×3 (10:19→16:32)
[2017-09-12] MEDS: MAGNESIUM HYDROXIDE 2400 MG/30 ML UDC PO SCH (10:19)
[2017-09-12] MEDS: NYSTATIN POW 100 MU/GM 15 GM BTL TP SCH ×2 (10:31→21:10)
[2017-09-12] MEDS: NACL 0.9% 1,000 ML IV SCH (10:34)
[2017-09-12 12:00] VITALS: BP 133/60
--- NOTE | 2017-09-12 12:41 | NUR ---
NYSTATIN POWDER REAPPLIED AFTER IT WAS WIPED OFF DURING PT CLEANING.
[2017-09-12] MEDS ORDERED: SODIUM PHOSPHATE 118 ML ENEM RC PRN (15:05)
--- NOTE | 2017-09-12 15:07 | NUR ---
PERCOCET ADMINISTERED FOR PAIN. WILL CONTINUE TO MONITOR.
[2017-09-12 16:00] VITALS: BP 131/56
--- NOTE | 2017-09-12 16:40 | NUR ---
FLEET ENEMA ADMINISTERED. ALL SAFETY MEASURES IN PLACE. WILL CONTINUE TO MONITOR.
[2017-09-12 16:56] LABS: IRON, SERUM 13 ug/dl (35-150); TOTAL IRON BINDING CAPACITY 199 ug/dl (250-450)
--- NOTE | 2017-09-12 18:15 | NUR ---
PATIENT HAD LARGE LIQUID BM THAT IS GREEN[place] BROWN.
--- NOTE | 2017-09-12 19:19 | NUR ---
ENDORSED PLAN OF CARE TO MOTOR POOL CLERK RN. PT IN STABLE CONDITION.
--- NOTE | 2017-09-12 19:20 | NUR ---
RECEIVED REPORT FROM DAY SHIFT NURSE TEJA-RN AT BEDSIDE. PT RESTING IN BED WATCHING TV, AOX2. TWO IVS, RIGHT WRIST, 2G2 AND LEFT AC 18 G, DRESSING INTACT. PT ON 1 L NC, SEGURA IN PLACE DRAINING CLEAR YELLOW URINE, DISCUSSED PLAN OF CARE AND PT VERBALIZED UNDERSTANDING. NO S/S OF RESPIRATORY DISTRESS OR DISCOMFORT NOTED AT THIS TIME. WHITE BOARD UPDATED. BED IN LOWEST POSITION, BED BREAKS ON, BOTH SIDE RAILS UP. BED SIDE TABLE AND CALL LIGHT ARE WITHIN REACH. WILL CONTINUE TO MONITOR.
[2017-09-12 20:00] VITALS: BP 152/72
--- NOTE | 2017-09-12 20:00 | NUR ---
VITAL SIGNS TAKEN AND TOLERATED WELL. NO S/S OF RESPIRATORY DISTRESS. PT C/O PAIN 10/-GENERALIZED WELL ANXIETY- WILL MEDICATE. WILL CONTINUE TO MONITOR.
--- NOTE | 2017-09-12 20:10 | NUR ---
SCHEDULED MEDICATION GIVEN AND TOLERATED WELL. PERCOCET GIVEN FOR PAIN AND KLONOPIN FOR ANXIETY. WILL CONTINUE TO MONITOR.
--- NOTE | 2017-09-12 20:20 | NUR ---
BLOOD GLUCOSE 107-NO INSULIN COVERAGE NEEDED
[2017-09-12] MEDS: ZOLPIDEM 5 MG TAB PO SCH (21:07)
[2017-09-12] MEDS: traZODone 50 MG TAB PO SCH (21:07)
[2017-09-12] MEDS ORDERED: NITROGLYCERIN 2% 1 GM PKT TP SCH (21:30)
--- NOTE | 2017-09-12 22:45 | NUR ---
DR. HAYNES-CREDIT UNION TELLER IN TO SEE PT. PT C/O CHEST PAIN. NEW ORDER OF NITRO-BID PLACED AND GIVEN ORDERED. PT TOLERATED WELL. NO S/S OF RESPIRATORY DISTRESS OR DISCOMFORT NOTED AT THIS TIME. WILL CONTINUE TO MONITOR.
[2017-09-13] VITALS: BP 143/65
--- NOTE | 2017-09-13 | NUR ---
VITAL SIGNS TAKEN AND TOLERATED WELL. NO S/S OF RESPIRATORY DISTRESS OR DISCOMFORT NOTED AT THIS TIME. WILL CONTINUE TO MONITOR.
[2017-09-13] MEDS: NITROGLYCERIN 2% 1 GM PKT TP SCH ×4 (01:00→18:59)
--- NOTE | 2017-09-13 01:00 | NUR ---
SECOND DOES OF NITRO-BID SCHEDULED AND GIVEN ORDERED. PT TOLERATED WELL. NO S/S OF RESPIRATORY DISTRESS OR DISCOMFORT NOTED AT THIS TIME. WILL CONTINUE TO MONITOR.
[2017-09-13] MEDS: NACL 0.9% 1,000 ML IV SCH ×2 (01:13→15:03)
--- NOTE | 2017-09-13 01:15 | NUR ---
NEW BAG OF IVF HUNG. PT TOLERATED WELL. NO S/S OF RESPIRATORY DISTRESS OR DISCOMFORT NOTED AT THIS TIME. WILL CONTINUE TO MONITOR.
--- NOTE | 2017-09-13 02:00 | NUR ---
PT CONTINUES TO SLEEP IN BED. NO S/S OF RESPIRATORY DISTRESS OR DISCOMFORT NOTED AT THIS TIME. WILL CONTINUE TO MONITOR.
[2017-09-13 04:00] VITALS: BP 145/67
--- NOTE | 2017-09-13 04:00 | NUR ---
VITAL SIGNS TAKEN AND TOLERATED WELL. PT RETURNED BACK TO SLEEP. NO S/S OF RESPIRATORY DISTRESS OR DISCOMFORT NOTED AT THIS TIME. WILL CONTINUE TO MONITOR.
[2017-09-13 06:21] LABS: BASOPHILS % (AUTO) 0.6 % (0.0-2.0); EOSINOPHILS # (AUTO) 0.3 K/uL (0-0.4); EOSINOPHILS % (AUTO) 4.4 % (0.0-4.0); HEMATOCRIT 22.3 % (36-52); HEMOGLOBIN 7.5 g/dL (12.0-18.0); LYMPHOCYTES # (AUTO) 1.3 K/uL (2.0-11.5); LYMPHOCYTES % (AUTO) 18.6 % (20.5-51.1); MEAN CORPUSCULAR HEMOGLOBIN 29 pg (27-31); MEAN CORPUSCULAR HGB CONC 33 g/dL (33-37); MEAN CORPUSCULAR VOLUME 86.7 fL (80-94); MONOCYTES # (AUTO) 0.6 K/uL (0.8-1.0); MONOCYTES % (AUTO) 8.7 % (1.7-9.3); NEUTROPHILS # (AUTO) 4.7 K/uL (1.8-7.7); NEUTROPHILS % (AUTO) 67.7 % (42.2-75.2); PLATELET COUNT (AUTO) 234 K/uL (140-450); RED BLOOD CELL COUNT(AUTO) 2.58 MIL/uL (4.20-6.10); RED CELL DISTRIBUTION WIDTH 16.4 % (11.6-13.7)
[2017-09-13] MEDS: ALBUTEROL SULFATE/IPRATROPIU 3 ML SOL IH SCH ×3 (06:31→18:55)
[2017-09-13 06:52] LABS: MAGNESIUM 2.2 mg/dL (1.8-2.4); PHOSPHORUS 3.9 mg/dL (2.5-4.9)
[2017-09-13 06:53] LABS: ANION GAP 7.7 (8-16); CARBON DIOXIDE 31.6 mmol/L (21-32); CHLORIDE 107 mmol/L (98-107); CREATININE 1.5 mg/dL (0.7-1.3); GLUCOSE 109 mg/dL (74-106); POTASSIUM 4.3 mmol/L (3.5-5.1); SODIUM SERUM 142 mmol/L (136-145); UREA NITROGEN, BLOOD 24 mg/dL (7-18)
[2017-09-13] MEDS: LEVOTHYROXINE 0.05 MG TAB PO SCH (06:53)
[2017-09-13] MEDS: BLOOD GLUCOSE MONITORING 1 DEV DEV FS SCH ×4 (07:02→21:56)
--- NOTE | 2017-09-13 07:15 | NUR ---
RECEIVED REPORT FROM TIME ANALYSIS CLERK NURSE, PATIENT IS AAOX3, PATIENT IN BED SUPINE AND HAS NC AT 2L O2, RESPIRATIONS ARE WNL, NO RESPIRATORY DISTRESS NOTED. SENIOR TECHNICAL BUSINESS ANALYST IN PLACE. PATIENT IS UNABLE TO AMBULATE, SEGURA IN PLACE DO TO INCONTINENCE, PATIENT CLAIMED HE HAD A BM YESTERDAY, PATIENT HAS A SKIN TEAR ON BACK, AND INCONTINENT DERMATITIS. FALL RISK PRECAUTIONS ARE IN PLACE, PATIENT WATCHING TELEVISION, CALL LIGHT WITHIN REACH, WILL CONTINUE TO MONITOR.
--- NOTE | 2017-09-13 07:19 | NUR ---
ENDORSED PT CARE TO DAY SHIFT NURSE ALETHA FOR CONTINUITY OF CARE.
[2017-09-13 08:00] VITALS: BP 169/70
[2017-09-13] MEDS: ASPIRIN 325 MG TAB PO SCH (08:17)
[2017-09-13] MEDS: SUCRALFATE 1 GM TAB PO SCH ×3 (08:18→16:54)
[2017-09-13] MEDS: DOCUSATE SODIUM 250 MG GELCAP PO SCH ×2 (08:18→20:39)
[2017-09-13] MEDS: TAMSULOSIN 0.4 MG CAP PO SCH (08:19)
[2017-09-13] MEDS: FERROUS SULFATE 325 MG TABEC PO SCH ×2 (08:19→20:41)
[2017-09-13] MEDS: levETIRAcetam 500 MG TAB PO SCH ×2 (08:19→20:40)
[2017-09-13] MEDS: FUROSEMIDE 20 MG TAB PO SCH (08:19)
[2017-09-13] MEDS: MAGNESIUM HYDROXIDE 2400 MG/30 ML UDC PO SCH (08:21)
[2017-09-13] MEDS: ESCITALOPRAM 20 MG TAB PO SCH (08:21)
[2017-09-13] MEDS: VIT-B COMP/VIT-C/FOLIC ACID 1 TAB PO SCH (08:22)
[2017-09-13] MEDS: GABAPENTIN 300 MG CAP PO SCH (08:22)
[2017-09-13] MEDS: FAMOTIDINE 20 MG TAB PO SCH (08:23)
[2017-09-13] MEDS: amLODIPine 5 MG TAB PO SCH (08:23)
[2017-09-13] MEDS: SERTRALINE 50 MG TAB PO SCH ×2 (08:24→20:40)
[2017-09-13] MEDS: SENNA 8.6 MG TAB PO SCH (08:24)
[2017-09-13] MEDS: oxyCODONE/APAP 5/325 MG 1 TAB TAB PO PRN ×3 (08:29→22:22)
[2017-09-13] MEDS: NYSTATIN POW 100 MU/GM 15 GM BTL TP SCH ×2 (08:35→20:41)
--- NOTE | 2017-09-13 09:00 | NUR ---
PT NOTE 0858 CHART REVIEWED AND CLEARED FOR PT BY RN, PRE-MEDICATED FOR PAIN. Pt REFUSED TO PARTICIPATE WITH PT TODAY DUE TO REPORT OF 10/10 CHEST PAIN; EDUCATED Pt ON BENEFIT OF OOB PARTICIPATION DURING PHYSICAL THERAPY AND ENCOURAGED THEREX IN SUPINE BUT STILL REFUSED SAYING THAT HE CANNOT DO IT; WILL FOLLOW UP W/Pt TOMORROW, RN NOTIFIED.
[2017-09-13] MEDS: clonazePAM 0.5 MG TAB PO PRN ×2 (10:54→22:21)
[2017-09-13] MEDS: HYDROcodone/APAP 5/325 MG 1 TAB TAB PO PRN ×2 (10:54→16:55)
[2017-09-13 12:00] VITALS: BP 165/78
--- NOTE | 2017-09-13 13:19 | NUR ---
PRIOR ECHO IN JUNE 12, 2017. NOTIFIED DR. HILL
--- NOTE | 2017-09-13 14:28 | NUR ---
Clinical review faxed to Geovani Damon at [phone]
--- NOTE | 2017-09-13 15:45 | NUR ---
PT IV ON LEFT AC CAME OUT, CATHETER IS INTACT. WILL CONTINUE FLUIDS ON PATIENT RIGHT WRIST IV.
--- NOTE | 2017-09-13 15:53 | NUR ---
09/13/17 RD FOLLOW UP COMPLETED PLEASE REFER TO NUTRITION PROGRESS NOTE UNDER CARE ACTIVITY FOR ESTIMATED NUTRITION NEEDS. RD RECOMMENDATIONS: 1. RECOMMEND RENAL, CCHO 60GM DIET TOLERATED 2. CONTINUE TO ENCOURAGE INCREASED PO INTAKE 3. RD TO FOLLOW-UP 3-5 DAYS, MODERATE RISK JOHNSON REINA, LUCINA
[2017-09-13 16:00] VITALS: BP 150/65
--- NOTE | 2017-09-13 19:30 | NUR ---
ENDORSED PT TO DRAPERY CUTTER NURSE FOR CONTINUITY OF CARE. PT STABLE AT THIS TIME.
--- NOTE | 2017-09-13 19:31 | NUR ---
RECEIVED REPORT FROM DAY SHIFT NURSE. AAOX3. NO C/O PAIN OR SOB. ON O2 AT 2L/MIN VIA NC. IV TO RIGHT WRIST #22G, NS AT 70 ML/HR, INFUSING WELL. PT HAS SEGURA CATH DRAINING CLEAR YELLOW URINE. DISCUSSED PLAN OF CARE, PT VERBALIZED UNDERSTANDING. SAFETY PRECAUTION IN PLACE. CALL LIGHT WITHIN REACH.
[2017-09-13 20:00] VITALS: BP 153/65
[2017-09-13] MEDS: ZOLPIDEM 5 MG TAB PO SCH (20:39)
[2017-09-13] MEDS: traZODone 50 MG TAB PO SCH (20:40)
[2017-09-13] MEDS: RANOLAZINE 500 MG TER PO SCH (20:40)
--- NOTE | 2017-09-13 21:40 | NUR ---
PT ACCIDENTALLY PULLED OUT IV TO RIGHT WRIST. MINIMAL BLEEDING NOTED. PRESSURE AND DRESSING APPLIED.
--- NOTE | 2017-09-13 22:25 | NUR ---
PT C/O PAIN 08/17 AND ANXIETY. PERCOCET 5/325 MG PO GIVEN FOR PAIN ORDERED AND KLONOPIN 1 MG PO GIVEN FOR ANXIETY ORDERED.
--- NOTE | 2017-09-13 23:00 | NUR ---
INSERTED IV LINE TO LEFT HAND. GOOD FLUSH AND BLOOD RETURN. PT TOLERATED PROCEDURE WELL. Addendum: 09/14/17 at 0128 by Tex Ibarra RN IV LINE TO LEFT HAND #22G.
[2017-09-14] VITALS (7 sets, daily range): BP systolic 114–179; BP diastolic 54–87
--- NOTE | 2017-09-14 01:45 | NUR ---
PT SLEEPING. NO S/SO OF PAIN. NO S/S OF RESP DISTRESS. SAFETY PRECAUTION IN PLACE.
--- NOTE | 2017-09-14 03:50 | NUR ---
PT SLEEPING. NO S/S OF RESP DISTRESS. NO S/S OF PAIN OR DISCOMFORT. FALL AND SEIZURE PRECAUTION IN PLACE.
[2017-09-14] MEDS: oxyCODONE/APAP 5/325 MG 1 TAB TAB PO PRN ×2 (05:31→15:21)
--- NOTE | 2017-09-14 05:31 | NUR ---
PT C/O PAIN 8/10 SCALE. PERCOCET GIVEN ORDERED. NO RESP DISTRESS NOTED.
[2017-09-14 06:16] LABS: FOLIC ACID 8.8 ng/mL (>3.0)
[2017-09-14] MEDS: LEVOTHYROXINE 0.05 MG TAB PO SCH (06:40)
[2017-09-14] MEDS: NITROGLYCERIN 2% 1 GM PKT TP SCH ×3 (06:40→12:12)
[2017-09-14] MEDS: ALBUTEROL SULFATE/IPRATROPIU 3 ML SOL IH SCH ×3 (06:48→18:49)
--- NOTE | 2017-09-14 06:48 | NUR ---
PT SLEEPING WITH NO SIGNS OF DISTRESS AT THIS TIME NO HHN WAS GIVEN
[2017-09-14] MEDS: BLOOD GLUCOSE MONITORING 1 DEV DEV FS SCH ×4 (06:51→20:33)
--- NOTE | 2017-09-14 07:05 | NUR ---
ENDORSED PT TO DAY SHIFT NURSE. PT IN STABLE CONDITION.
--- NOTE | 2017-09-14 07:06 | NUR ---
RECEIVED REPORT FROM SHEET ROCK NAILER RN. PATIENT IS AAOX3. HAS NASAL CANNULA SET AT 2 LPM, NO SIGNS AND SYMPTOMS OF ACUTE DISTRESS NOTED AT THIS TIME. HAS IV TO THE LEFT HAND 20G, INFUSING NS AT 70 ML/HR. SITE IS CLEAN, DRY, PATENT AND INTACT. HE HAS A SEGURA CATHETER IN PLACE, DRAINING TO GRAVITY. DISCUSSED PLAN OF CARE WITH PATIENT AND HE VERBALIZED UNDERSTANDING. BED IN LOWEST POSITION, SIDE RAILS UP X2, CALL LIGHT WITHIN REACH. WILL CONTINUE TO MONITOR.
[2017-09-14 07:10] LABS: BASOPHILS # (AUTO) 0.1 K/uL (0.00-0.22); BASOPHILS % (AUTO) 0.6 % (0.0-2.0); EOSINOPHILS # (AUTO) 0.3 K/uL (0-0.4); EOSINOPHILS % (AUTO) 3.7 % (0.0-4.0); HEMATOCRIT 22.1 % (36-52); HEMOGLOBIN 7.3 g/dL (12.0-18.0); LYMPHOCYTES # (AUTO) 1.1 K/uL (2.0-11.5); LYMPHOCYTES % (AUTO) 13.3 % (20.5-51.1); MEAN CORPUSCULAR HEMOGLOBIN 29 pg (27-31); MEAN CORPUSCULAR HGB CONC 33 g/dL (33-37); MEAN CORPUSCULAR VOLUME 86.7 fL (80-94); MONOCYTES # (AUTO) 0.6 K/uL (0.8-1.0); MONOCYTES % (AUTO) 7.4 % (1.7-9.3); NEUTROPHILS # (AUTO) 6.2 K/uL (1.8-7.7); PLATELET COUNT (AUTO) 252 K/uL (140-450); RED BLOOD CELL COUNT(AUTO) 2.55 MIL/uL (4.20-6.10); RED CELL DISTRIBUTION WIDTH 16.3 % (11.6-13.7); WHITE BLOOD COUNT (AUTO) 8.3 K/uL (4.8-10.8)
[2017-09-14 07:54] LABS: MAGNESIUM 2.4 mg/dL (1.8-2.4)
[2017-09-14 07:59] LABS: ANION GAP 10.1 (8-16); CARBON DIOXIDE 31.6 mmol/L (21-32); CHLORIDE 105 mmol/L (98-107); CREATININE 1.2 mg/dL (0.7-1.3); GLUCOSE 118 mg/dL (74-106); POTASSIUM 4.7 mmol/L (3.5-5.1); SODIUM SERUM 142 mmol/L (136-145); UREA NITROGEN, BLOOD 22 mg/dL (7-18)
[2017-09-14] MEDS: MAGNESIUM HYDROXIDE 2400 MG/30 ML UDC PO SCH (10:01)
[2017-09-14] MEDS: RANOLAZINE 500 MG TER PO SCH ×2 (10:01→20:38)
[2017-09-14] MEDS: DOCUSATE SODIUM 250 MG GELCAP PO SCH ×2 (10:01→20:35)
[2017-09-14] MEDS: FUROSEMIDE 20 MG TAB PO SCH (10:02)
[2017-09-14] MEDS: SERTRALINE 50 MG TAB PO SCH ×2 (10:02→20:38)
[2017-09-14] MEDS: FAMOTIDINE 20 MG TAB PO SCH (10:02)
[2017-09-14] MEDS: FERROUS SULFATE 325 MG TABEC PO SCH ×2 (10:02→20:37)
[2017-09-14] MEDS: TAMSULOSIN 0.4 MG CAP PO SCH ×2 (10:03→20:37)
[2017-09-14] MEDS: VIT-B COMP/VIT-C/FOLIC ACID 1 TAB PO SCH (10:03)
[2017-09-14] MEDS: levETIRAcetam 500 MG TAB PO SCH ×2 (10:03→20:44)
[2017-09-14] MEDS: amLODIPine 5 MG TAB PO SCH (10:03)
[2017-09-14] MEDS: ASPIRIN 325 MG TAB PO SCH (10:04)
[2017-09-14] MEDS: ESCITALOPRAM 20 MG TAB PO SCH (10:04)
[2017-09-14] MEDS: GABAPENTIN 300 MG CAP PO SCH (10:04)
[2017-09-14] MEDS: SUCRALFATE 1 GM TAB PO SCH ×3 (10:04→18:29)
[2017-09-14] MEDS: NYSTATIN POW 100 MU/GM 15 GM BTL TP SCH ×2 (10:05→20:46)
[2017-09-14] MEDS: SENNA 8.6 MG TAB PO SCH (10:05)
[2017-09-14] MEDS: HYDROcodone/APAP 5/325 MG 1 TAB TAB PO PRN (10:06)
[2017-09-14] MEDS ORDERED: DEXT 5% / NACL 0.9% 1,000 ML IV SCH (10:10)
[2017-09-14] MEDS: clonazePAM 0.5 MG TAB PO PRN ×2 (10:12→18:32)
--- NOTE | 2017-09-14 11:13 | NUR ---
RECEIVED A CALL FROM JUD AT [facility]. JUD STATED THAT THEY CURRENTLY HAVE PATIENT ON THEIR SERVICES FOR SKILLED CARE. PHONE [phone] AND FAX [phone]. JUD REQUESTS A CALL WHEN PT IS READY FOR DISCHARGE.
--- NOTE | 2017-09-14 11:37 | NUR ---
PT NOTES CHART REVIEWED AND CLEARED FOR PT BY RN. PATIENT IN HIGH SORIANO POSITION, BUT DECLINES QUICKLY FOR ACTIVE PARTICIPATION IN THERAPY EDUCATION ON BENEFITS OF PARTICIPATION AND CONTINUED TO DECLINE, ALONG WITH BED EXERCISES. PATIENT STATED, "NO NOT TODAY, I'M HAVING A PROCEDURE". TRAY AND CALL LIGHT IN REACH. WILL ATTEMPT THERAPY TOMORROW IF POSSIBLE, RN AWARE. Addendum: 09/14/17 at 1541 by Lillian Jama PT PHYSICAL THERAPY CO-SIGN The Physical Therapy Progress Notes documented by Director Inpatient Headache Program have been reviewed. Reviewed/Co-Signed by: Lillian Jama, PT Documentation Done by: MOJGAN CHAVARRIA, CALENDER MACHINE OPERATOR HELPER
[2017-09-14] MEDS: ONDANSETRON 4 MG/2 ML VIAL IM/IVP PRN (12:11)
--- NOTE | 2017-09-14 12:41 | NUR ---
FAXED CONCURRENT REVIEW, INCLUDING 09/11 AND 09/12 AND PROGRESS NOTES TO ALICIA DE LEON [phone] PHONE VIRIDIANA [phone]
[2017-09-14] MEDS ORDERED: MIDAZOLAM 2 MG/2 ML VIAL ONE (12:43)
[2017-09-14] MEDS ORDERED: fentaNYL 0.05 MG/ML VIAL ONE (12:43)
[2017-09-14] MEDS ORDERED: hydrALAZINE 25 MG TAB PO SCH (13:00)
--- NOTE | 2017-09-14 13:05 | NUR ---
PATIENT TAKEN TO GI LAB.
--- NOTE | 2017-09-14 13:09 | NUR ---
PT OFF UNIT
[2017-09-14] MEDS ORDERED: MIDAZOLAM 2 MG/2 ML VIAL IVP ONE (13:25)
[2017-09-14] MEDS ORDERED: fentaNYL 0.05 MG/ML VIAL IVP ONE (13:25)
--- NOTE | 2017-09-14 13:26 | NUR ---
PATIENT BACK FROM EGD. HAS NO SIGNS AND SYMPTOMS OF ACUTE DISTRESS NOTED AT THIS TIME. WILL CONTINUE TO MONITOR.
[2017-09-14] MEDS ORDERED: NACL 0.9% 1,000 ML IV SCH (13:50)
[2017-09-14] MEDS ORDERED: ISOSORBIDE MONONITRATE 30 MG TABER PO SCH (18:00)
--- NOTE | 2017-09-14 19:20 | NUR ---
ENDORSED PATIENT TO COIL WINDER REPAIR RN FOR CONTINUITY OF CARE. PATIENT IN STABLE CONDITION.
--- NOTE | 2017-09-14 19:21 | NUR ---
RECEIVED BEDSIDE REPORT FROM DAY SHIFT NURSE LORE RN, PT STABLE, NO DISTRESS NOTED, IV TO L HAND 22G PATENT, INTACT, RUNNING NS @40ML/HR, INFUSING WELL, PT ON 2LPM O2 VIA NC, NO SOB, SEGURA IN PLACE DRAINING YELLOW URINE, INITIAL ASSESSMENT DONE, ALL SAFETY PRECAUTION MET, WILL CONTINUE TO MONITOR.
[2017-09-14] MEDS: hydrALAZINE 25 MG TAB PO SCH (20:35)
--- NOTE | 2017-09-14 20:37 | NUR ---
DUE MEDICATION ADMINISTERED, PT TOLERATED WELL, FLOMAX WAS TAKEN FROM [facility] BECAUSE IT WAS IN THE WRONG POCKET OF MEDICATION (KEPPRA), FLOMAX WAS SCANNED BUT NOT GIVEN AND WAS WASTED, UNDO WAS DONE ON THE COMPUTER, KEPPRA WAS GIVEN INSTEAD. PT RESTING, NO DISTRESS NOTED, CALL LIGHT WITHIN REACH, WILL CONTINUE TO MONITOR. Addendum: 09/14/17 at 2139 by Maliha Barbosa RN PT STATED THAT HE WANTS TO TAKE HIS AMBIEN AND TRAZODONE ON A SEPARATE TIME CLOSE TO 10 PM, TALK TO PT THAT NURSE WILL BE BACK AT 9.30PM TO GIVE HIS MEDICATION, PT STATED UNDERSTANDING.
[2017-09-14] MEDS: CARVEDILOL 6.25 MG TAB PO SCH (20:45)
[2017-09-14] MEDS ORDERED: SUCRALFATE 1 GM TAB PO SCH (21:00)
[2017-09-14] MEDS: ZOLPIDEM 5 MG TAB PO SCH (21:26)
[2017-09-14] MEDS: traZODone 50 MG TAB PO SCH (21:27)
--- NOTE | 2017-09-14 21:27 | NUR ---
DUE MEDICATION TRAZODONE AND AMBIEN GIVEN, PT TOLERATED WELL, NO DISTRESS NOTED, CALL LIGHT WITHIN REACH, WILL CONTINUE TO MONITOR.
--- NOTE | 2017-09-14 23:29 | NUR ---
CHECKED ON PT, PT SLEEPING, V/S TAKEN, WNL, NO DISTRESS NOTED, CALL LIGHT WITHIN REACH, WILL CONTINUE TO MONITOR.
[2017-09-15] VITALS: BP 123/59
--- NOTE | 2017-09-15 01:22 | NUR ---
PT SLEEPING, NO DISTRESS NOTED, CALL LIGHT WITHIN REACH, WILL CONTINUE TO MONITOR.
--- NOTE | 2017-09-15 03:44 | NUR ---
CHECKED ON PT, PT SLEEPING, NO DISTRESS NOTED, CALL LIGHT WITHIN REACH, WILL CONTINUE TO MONITOR.
[2017-09-15 04:00] VITALS: BP 143/66
[2017-09-15] MEDS: oxyCODONE/APAP 5/325 MG 1 TAB TAB PO PRN (05:14)
[2017-09-15] MEDS: hydrALAZINE 25 MG TAB PO SCH ×2 (05:14→12:10)
--- NOTE | 2017-09-15 05:14 | NUR ---
PT STATED FEELING PAIN, PAIN MEDICATION ORDERED GIVEN, PT TOLERATED WELL, NO DISTRESS NOTED, CALL LIGHT WITHIN REACH, WILL CONTINUE TO MONITOR.
[2017-09-15] MEDS: clonazePAM 0.5 MG TAB PO PRN (06:08)
[2017-09-15] MEDS: LEVOTHYROXINE 0.05 MG TAB PO SCH (06:08)
--- NOTE | 2017-09-15 06:08 | NUR ---
PT STATED FEELING ANXIOUS, REQUESTED THAT HE HAS HIS KLONOPIN, MEDICATION ADMINISTERED, PT TOLERATED WELL, WILL CONTINUE TO MONITOR.
[2017-09-15] MEDS: BLOOD GLUCOSE MONITORING 1 DEV DEV FS SCH ×2 (06:10→12:11)
--- NOTE | 2017-09-15 06:14 | NUR ---
PT STATED FEELING PAIN, PAIN MEDICATION ORDERED GIVEN, PT TOLERATED WELL, NO DISTRESS NOTED, CALL LIGHT WITHIN REACH, WILL CONTINUE TO MONITOR. Addendum: 09/15/17 at 0657 by Maliha Barbosa RN WRONG TIME
--- NOTE | 2017-09-15 07:30 | NUR ---
ENDORSED PT TO DAY SHIFT NURSE MATTIE RN, PT STABLE, NO DISTRESS NOTED, CALL LIGHT WITHIN REACH.
--- NOTE | 2017-09-15 07:31 | NUR ---
PATIENT LYING DOWN IN BED SLEEPING, AROUSABLE BY VOICE. NO DISTRESS NOTED. DENIES ANY PAIN AT THIS TIME. AAOX3, CALM, COOPERATIVE, SKIN COLOR APPROPRIATE TO ETHNICITY, WARM TO TOUCH. SKIN IS INTACT, HOWEVER, HAS SACRAL REDNESS AND ABDOMINAL FOLDS REDNESS NOTED. LUNGS CTA ON ALL LOBES, DIMINISHED. RESPIRATIONS EVEN, UNLABORED, ON O2 2L/MIN VIA NC. ABDOMEN SOFT, NON-DISTENDED. SEGURA CATHETER IN PLACE DRAINING CLEAR YELLOW URINE. REVIEWED PLAN OF CARE WITH PATIENT. PATIENT VERBALIZED UNDERSTANDING. SAFETY MEASURES IN PLACE, CALL LIGHT WITHIN REACH. WILL CONTINUE TO MONITOR.
[2017-09-15 07:34] LABS: BASOPHILS % (AUTO) 0.6 % (0.0-2.0); EOSINOPHILS # (AUTO) 0.2 K/uL (0-0.4); EOSINOPHILS % (AUTO) 3.1 % (0.0-4.0); HEMATOCRIT 21.9 % (36-52); LYMPHOCYTES % (AUTO) 13.8 % (20.5-51.1); MEAN CORPUSCULAR HEMOGLOBIN 29 pg (27-31); MEAN CORPUSCULAR HGB CONC 33 g/dL (33-37); MEAN CORPUSCULAR VOLUME 86.8 fL (80-94); MONOCYTES # (AUTO) 0.6 K/uL (0.8-1.0); MONOCYTES % (AUTO) 8.1 % (1.7-9.3); NEUTROPHILS # (AUTO) 5.5 K/uL (1.8-7.7); NEUTROPHILS % (AUTO) 74.4 % (42.2-75.2); PLATELET COUNT (AUTO) 247 K/uL (140-450); RED BLOOD CELL COUNT(AUTO) 2.53 MIL/uL (4.20-6.10); RED CELL DISTRIBUTION WIDTH 16.4 % (11.6-13.7); WHITE BLOOD COUNT (AUTO) 7.4 K/uL (4.8-10.8)
[2017-09-15 07:42] LABS: HEMOGLOBIN 7.3 g/dL (12.0-18.0)
[2017-09-15] MEDS: ALBUTEROL SULFATE/IPRATROPIU 3 ML SOL IH SCH ×2 (07:50→13:38)
[2017-09-15 08:00] VITALS: BP 149/68
[2017-09-15 08:26] LABS: ANION GAP 8.7 (8-16); CARBON DIOXIDE 31.8 mmol/L (21-32); CHLORIDE 103 mmol/L (98-107); CREATININE 1.2 mg/dL (0.7-1.3); GLUCOSE 108 mg/dL (74-106); POTASSIUM 4.5 mmol/L (3.5-5.1); SODIUM SERUM 139 mmol/L (136-145); UREA NITROGEN, BLOOD 18 mg/dL (7-18)
[2017-09-15 08:41] LABS: MAGNESIUM 2.6 mg/dL (1.8-2.4); PHOSPHORUS 3.8 mg/dL (2.5-4.9)
[2017-09-15] MEDS ORDERED: ISOS30TE35 PO (08:49)
[2017-09-15] MEDS ORDERED: AMLO5TAB4 PO (08:49)
[2017-09-15] MEDS ORDERED: LISI-420 PO (08:49)
[2017-09-15] MEDS ORDERED: HYDR-4420 PO (08:54)
[2017-09-15] MEDS ORDERED: PANTOPRAZOLE 40 MG INJ VIAL IVP SCH (09:00)
[2017-09-15] MEDS ORDERED: CARVEDILOL 3.125 MG TAB PO SCH (09:00)
[2017-09-15] MEDS ORDERED: LISINOPRIL 20 MG TAB PO SCH (09:00)
[2017-09-15] MEDS: RANOLAZINE 500 MG TER PO SCH (09:52)
[2017-09-15] MEDS: MAGNESIUM HYDROXIDE 2400 MG/30 ML UDC PO SCH (09:52)
[2017-09-15] MEDS: CARVEDILOL 6.25 MG TAB PO SCH (09:53)
[2017-09-15] MEDS: FERROUS SULFATE 325 MG TABEC PO SCH (09:53)
[2017-09-15] MEDS: GABAPENTIN 300 MG CAP PO SCH (09:53)
[2017-09-15] MEDS: TAMSULOSIN 0.4 MG CAP PO SCH (09:53)
[2017-09-15] MEDS: levETIRAcetam 500 MG TAB PO SCH (09:54)
[2017-09-15] MEDS: SERTRALINE 50 MG TAB PO SCH (09:54)
[2017-09-15] MEDS: VIT-B COMP/VIT-C/FOLIC ACID 1 TAB PO SCH (09:54)
[2017-09-15] MEDS: ASPIRIN 325 MG TAB PO SCH (09:54)
[2017-09-15] MEDS: SUCRALFATE 1 GM TAB PO SCH ×2 (09:54→12:09)
[2017-09-15] MEDS: SENNA 8.6 MG TAB PO SCH (09:54)
[2017-09-15] MEDS: DOCUSATE SODIUM 250 MG GELCAP PO SCH (09:55)
[2017-09-15] MEDS: ESCITALOPRAM 20 MG TAB PO SCH (09:55)
[2017-09-15] MEDS: FUROSEMIDE 20 MG TAB PO SCH (09:55)
[2017-09-15] MEDS: NYSTATIN POW 100 MU/GM 15 GM BTL TP SCH (09:55)
--- NOTE | 2017-09-15 10:04 | NUR ---
PATIENT LYING DOWN IN BED COMFORTABLY. NO DISTRESS NOTED. DENIES ANY PAIN AT THIS TIME. SCHEDULED MEDICATIONS DUE GIVEN. SAFETY MEASURES IN PLACE, CALL LIGHT WITHIN REACH. WILL CONTINUE TO MONITOR.
--- NOTE | 2017-09-15 10:30 | NUR ---
Ux Researcher Notes: I Faxed to [facility] at [phone] patient's Clinical information and MD order for Physical Therapy.
--- NOTE | 2017-09-15 11:00 | NUR ---
Supervisor Filling And Packing Notes: I call Mynor Mukherjee at to inform them, confirm and coordinate patient's discharge and transportation back to their facility. I Spoke with Chasity from admissions who stated that she will coordinate patient's transport for today at about 2:00 PM. Carlee requested Patient's clinical Information and MD orders for services that patient will need when retuning to their facility, I greed to fax her Patient's information and asked her to arrange patient's MD follow up appointment. Carlee agreed to make follow up appointments and coordinate services for patient when returned to their facility today after his discharge from [facility]. I call charge nurse Marina and made her aware of Patient's up dates with discharge and time for patient apple picking supervisor today.
--- NOTE | 2017-09-15 11:10 | NUR ---
Presales Consultant Notes: I Faxed to Mynor Mukherjee patient's Clinical information and MD orders.
[2017-09-15] MEDS: ACETAMINOPHEN 325 MG TAB PO PRN (11:20)
[2017-09-15] MEDS: ONDANSETRON 4 MG/2 ML VIAL IM/IVP PRN (11:38)
--- NOTE | 2017-09-15 11:45 | NUR ---
PATIENT COMPLAINS OF NAUSEA, ZOFRAN GIVEN PER MD ORDERS. DENIES ANY VOMITING. WILL CONTINUE TO MONITOR.
[2017-09-15 12:00] VITALS: BP 164/68
--- NOTE | 2017-09-15 12:11 | NUR ---
PATIENT SITTING IN BED WATCHING TV. NO DISTRESS NOTED. PAIN WITHIN TOLERABLE. SCHEDULED MEDICATIONS DUE GIVEN. SAFETY MEASURES IN PLACE, CALL LIGHT WITHIN REACH. WILL CONTINUE TO MONITOR.
--- NOTE | 2017-09-15 12:30 | NUR ---
PER MATTIE/RN PATIENT DISCHARGING FROM FACILITY APPROXIMATELY 1430 RN REMOVED SUPPLEMENTAL OXYGEN SATURATION 94%
[2017-09-15] MEDS ORDERED: amLODIPine 5 MG TAB PO SCH (13:00)
--- NOTE | 2017-09-15 13:30 | NUR ---
PATIENT SITTING IN BED COMFORTABLY. NO DISTRESS NOTED. PAIN WITHIN TOLERABLE. NO DISTRESS NOTED. DISCHARGE INSTRUCTIONS PROVIDED TO PATIENT IN PREFERRED LANGUAGE OF AMHARIC, TO CALL TO MAKE A FOLLOW-UP APPOINTMENT WITH PCP DR. QUINONES, NEW PRESCRIPTIONS AND MEDICATION REGIMEN, DIET REGIMEN, AND PAIN MANAGEMENT. ANSWERED ALL OF PATIENT'S QUESTION REGARDING DISCHARGE. PATIENT VERBALIZED COMPLETE UNDERSTANDING. IV SITE REMOVED WITH MINIMAL BLOOD AND LUMEN COMPLETELY INTACT. ID BANDS REMOVED. SEGURA CATHETER REMOVED PER DR. COLON VERBAL ORDERS. AWAITING FOR [facility] TRANSPORT TO ARRIVE TO TAKE PATIENT THERE. WILL CONTINUE TO MONITOR.
--- NOTE | 2017-09-15 13:39 | NUR ---
Gina MOORE, SRT GIVING HHN THERAPY AND DOCUMENTING
--- NOTE | 2017-09-15 14:10 | NUR ---
1204 SPOKE WITH VIRIDIANA BLACK AT [facility] AND INFORMED HER THAT PT WILL DISCHARGE BACK TO ASSISTED LIVING TODAY WITH SERVICES. PT IS ALREADY ON SERVICE WITH [facility]OUGH [facility]. INFORMED HER PT NEEDS TO HAVE [facility] STRESS TEST AN OP AND VIRIDIANA STATED WILL NEED TO CALL CUSTOMER SERVICE/BENEFITS TO SEE IF AUTH NEEDED. REQUESTED THAT DC SUMMARY, PROCEDURE NOTE AND OTHER CLINICAL INFORMATION BE FAXED PT IS AUTHORIZED THROUGH 09/13/17.
--- NOTE | 2017-09-15 14:40 | NUR ---
TATY HERMINIO ARRIVED AT [facility] READY TO TAKE PATIENT HOME. ESCORTED PATIENT DOWN TO [facility] VIA WHEELCHAIR. PATIENT DISCHARGED TO [facility] AT THIS TIME IN PRIVATE VEHICLE IN STABLE CONDITION.
--- NOTE | 2017-09-15 15:24 | NUR ---
1421 CALLED [facility] [phone] AND SPOKE WITH TAWNY SCHMITZ IN NETWORK FACILITIES TO ARRANGE OP L[facility] AND INQUIRED IF PT WOULD NEED PRIOR AUTH. PER TAWNY IN NETWORK HOSPITALS NEARBY ARE [facility] AND [facility] AND TO CHECK WITH THE FACILITIES THEIR PROCEDURE. [address] SPANN THAT PT IS CHANGING TO NEW PCP AND HAS NOT SEEN HIM YET AND THAT OP WILL WANT TO KNOW WHO TO SEND [facility] RESULTS TO. PER DR SPANN ONCE PT HAS APPT WITH DR QUINONES HE CAN REFER PT TO A COMPUTER TECHNOLOGY INSTRUCTOR TO SCHEDULE THE TEST. Addendum: 09/15/17 at 1538 by Imani Rosado REFERENCE# PROVIDED FOR CALL IS [id number]
[2017-09-15] MEDS ORDERED: traZODone 50 MG TAB PO SCH (21:00)
[2017-09-15] MEDS ORDERED: NYSTATIN POW 100 MU/GM 15 GM BTL TP SCH (21:00)
--- NOTE | 2017-09-16 07:27 | NUR ---
DISCHARGE SUMMARY FAXED TO ALICIA DE LEON [phone] PHONE VIRIDIANA [phone]
== END 2017-09-15 14:40 | disposition home health service (06) | DRG 682 ==
LOC: MED 11:34 → MIC 14:21 → MTU 09-10 11:57
PROVIDERS: ADMIT General Practice; ATTEND General Practice
PROC: 30233N1 Transfusion of Nonautologous Red Blood Cells into Peripheral Vein, Percutaneous Approach (ICD-10-PCS; principal; 2017-09-09)
PROC: 02HV33Z Insertion of Infusion Device into Superior Vena Cava, Percutaneous Approach (ICD-10-PCS; 2017-09-09)
PROC: B548ZZA Ultrasonography of Superior Vena Cava, Guidance (ICD-10-PCS; 2017-09-09)
PROC: 0DB68ZX Excision of Stomach, Via Natural or Artificial Opening Endoscopic, Diagnostic (ICD-10-PCS; 2017-09-15)
DX: N17.0 Acute kidney failure with tubular necrosis (principal); G93.41 Metabolic encephalopathy; R57.1 Hypovolemic shock; E43 Unspecified severe protein-calorie malnutrition; K25.4 Chronic or unspecified gastric ulcer with hemorrhage; Z68.1 Body mass index [BMI] 19.9 or less, adult; F02.81 Dementia in other diseases classified elsewhere, unspecified severity, with behavioral disturbance; F32.1 Major depressive disorder, single episode, moderate; R45.851 Suicidal ideations; G30.9 Alzheimer's disease, unspecified; E83.41 Hypermagnesemia; D64.9 Anemia, unspecified; I10 Essential (primary) hypertension; K21.9 Gastro-esophageal reflux disease without esophagitis; K26.9 Duodenal ulcer, unspecified as acute or chronic, without hemorrhage or perforation; R00.1 Bradycardia, unspecified; J44.9 Chronic obstructive pulmonary disease, unspecified; F41.1 Generalized anxiety disorder; G40.909 Epilepsy, unspecified, not intractable, without status epilepticus; K44.9 Diaphragmatic hernia without obstruction or gangrene; Z96.659 Presence of unspecified artificial knee joint; E83.39 Other disorders of phosphorus metabolism; E03.9 Hypothyroidism, unspecified; M19.90 Unspecified osteoarthritis, unspecified site; G89.4 Chronic pain syndrome; N40.0 Benign prostatic hyperplasia without lower urinary tract symptoms; E78.00 Pure hypercholesterolemia, unspecified; R26.9 Unspecified abnormalities of gait and mobility; K29.70 Gastritis, unspecified, without bleeding; L30.8 Other specified dermatitis; K59.00 Constipation, unspecified
CPT/HCPCS: 36415; 70450; 71045; 80048; 80053; 80305; 81003; 82140; 82272; 82306; 82607; 82728; 82746; 82948; 83036; 83540; 83605; 83690; 83735; 83880; 84100; 84134; 84439; 84443; 84479; 84484; 85025; 85045; 85610; 85651; 85730; 86140; 86886; 86900; 86901; 86920; 87040; 87081; 87086; 88305; 88312; 88313; 93005; 93880; 93970; 94640; 96361; 96374; 97116; 97140; 99291; C1758; C9113; J1642; J1815; J2060; J2250; J2310; J2405; J2916; J3010; J7030; J7042; J7620; J8597; P9016; Q0092; Q0163

== ENCOUNTER 2018-04-14 19:21 | Emergency (ER) | payer MEDICARE, BC ==
[~2018-04-14] VITALS: Ht 177.8 cm; Wt 99.8 kg
[~2018-04-14 19:21] MED LIST changes: -ACET-7169 PO; -ALEN70TA52 PO; -AMLO10TA PO; +AMLO5TAB6 PO; +AMOX500C25 PO; +ASPI-1205 PO; -ASPI325T49 PO; -ATOR20TA40 PO; -BUS5 PO; +CALC-55 PO; -CALC-846 PO; -CARV3.122 PO; +CLAR500T PO; +ELA25 PO; +FURO-572 PO; -GABA300C PO; +HYDR-4420 PO; -KEP500 PO; -LACT1.4C PO; +LACT10CA PO; -OMEP20TC12 PO; +ORE25 PO; +PANT40EC28 PO; -PHO667 PO; -SERT100T PO; -SUCR1TAB35 PO; +SUCR1TAB56 PO; -TAMS0.4C96 PO; -TRAZ-343 PO; +ZOS3.375PM IV
[2018-04-14 19:35] VITALS: BP 139/75
--- NOTE | 2018-04-14 19:51 | NUR ---
[facility] TOOK PT TO BED #3, REPORT WAS GIVEN
--- NOTE | 2018-04-14 20:13 | NUR ---
77/M CC PULLED OUT SEGURA CATHETER ACCIDENTALLY. PT AOX4. ABLE TO VERBALIZE NEEDS. ON ROOM AIR. EVEN UNLABORED BREATHING. DENIES PAIN. NO BLEEDING NOTED. BED IN LOWEST POSITION. WILL CONTINUE TO MONITOR.
--- NOTE | 2018-04-14 20:37 | NUR ---
INSERTED F/C 16FR. URINE RETURN NOTED. STERILE TECHNIQUE OBSERVED. NO SIGNS OF ACUTE DISTRESS NOTED.
--- NOTE | 2018-04-14 21:43 | NUR ---
CALLED LEOPOLDO CHAVARRIA TO ARRANGE PICKUP X3. NO ANSWER.
--- NOTE | 2018-04-14 22:59 | NUR ---
NOTIFIED TATY KENYON REGARDING PTS RETURN TO THE FACILITY.
[2018-04-15 00:10] VITALS: BP 145/72
--- NOTE | 2018-04-15 00:10 | NUR ---
Patient discharged with v/s stable. Written and verbal after care instructions given and explained. Patient alert, oriented and verbalized understanding of instructions. Wheel Chair Assisted with by caregiver. All questions addressed prior to discharge. ID band removed. Patient advised to follow up with PMD. Opportunity to ask questions provided and answered.
== END 2018-04-15 00:10 ==
LOC: MED 19:21
DX: T83.83XA Hemorrhage due to genitourinary prosthetic devices, implants and grafts, initial encounter (principal); R33.9 Retention of urine, unspecified; I10 Essential (primary) hypertension; E11.9 Type 2 diabetes mellitus without complications; E03.9 Hypothyroidism, unspecified; Z79.2 Long term (current) use of antibiotics; Z79.1 Long term (current) use of non-steroidal anti-inflammatories (NSAID); Z79.899 Other long term (current) drug therapy
CPT/HCPCS: 51702; 99284

== ENCOUNTER 2018-08-08 10:21 | Emergency (ER) | payer MEDICARE, BC ==
[~2018-08-08] VITALS: Ht 177.8 cm; Wt 95.3 kg
--- NOTE | 2018-08-08 10:22 | NUR ---
Patient JESSICA HONG from [facility], transferred to bed 6. RN evaluating patient at bedside.
[2018-08-08 10:34] VITALS: BP 153/83
--- NOTE | 2018-08-08 10:34 | NUR ---
brought in by ems from [facility] , pt's residence obvious purulent in waters catheter; leaking waters bag --pt states he just finished PO antibiotic for urinary tract infection hx---dm, htn, thyroid rx---see list . DENIES N/V/D; SKIN IS PINK/WARM/DRY; awake, alert.LUNGS CLEAR BL; HR EVEN AND REGULAR; PT DENIES ANY FEVER, CP, SOB, OR COUGH AT THIS TIME; PATIENT STATES PAIN OF 0/10 AT THIS TIME; VSS; PATIENT POSITIONED FOR COMFORT; HOB ELEVATED; BEDRAILS UP X2; BED DOWN. ER MD MADE AWARE OF PT STATUS.
--- NOTE | 2018-08-08 10:43 | NUR ---
pre-existing waters 16 fr catheter dc---200ml purulent urine in collecting back new waters catheter inserted maintaining aseptic technique
[2018-08-08] MEDS ORDERED: SERT50TA PO (10:55)
[2018-08-08] MEDS ORDERED: BUS5 PO (10:55)
[2018-08-08] MEDS ORDERED: LEVE500T9 PO (10:55)
[2018-08-08] MEDS ORDERED: OMEP20TC PO (10:55)
[2018-08-08] MEDS ORDERED: TAMS0.4C96 PO (10:55)
[2018-08-08] MEDS ORDERED: ACET-5636 PO (10:55)
[2018-08-08] MEDS ORDERED: FINA5TAB1 PO (10:55)
[2018-08-08] MEDS ORDERED: INSU100S22 SC (10:55)
[2018-08-08] MEDS ORDERED: ATOR10TA PO (10:55)
[2018-08-08] MEDS ORDERED: MIRT15TA PO (10:55)
[2018-08-08] MEDS ORDERED: GABA300C PO (10:55)
--- NOTE | 2018-08-08 11:20 | NUR ---
pt stated pain did not get relieved. notified
--- NOTE | 2018-08-08 11:21 | NUR ---
Dr. Maldonado evaluating patient at bedside.
[2018-08-08] MEDS ORDERED: HYDROcodone/APAP 10/325 MG 1 TAB TAB PO STA (11:36)
[2018-08-08 11:44] LABS: BASOPHILS # (AUTO) 0.1 K/uL (0.00-0.22); EOSINOPHILS # (AUTO) 0.3 K/uL (0-0.4); EOSINOPHILS % (AUTO) 4.3 % (0.0-4.0); HEMATOCRIT 35.6 % (36-52); HEMOGLOBIN 11.5 g/dL (12.0-18.0); LYMPHOCYTES # (AUTO) 1.7 K/uL (2.0-11.5); LYMPHOCYTES % (AUTO) 22.9 % (20.5-51.1); MEAN CORPUSCULAR HEMOGLOBIN 27 pg (27-31); MEAN CORPUSCULAR HGB CONC 32 g/dL (33-37); MEAN CORPUSCULAR VOLUME 82.2 fL (80-94); MONOCYTES # (AUTO) 0.6 K/uL (0.8-1.0); MONOCYTES % (AUTO) 8.1 % (1.7-9.3); NEUTROPHILS # (AUTO) 4.8 K/uL (1.8-7.7); NEUTROPHILS % (AUTO) 63.7 % (42.2-75.2); PLATELET COUNT (AUTO) 233 K/uL (140-450); RED BLOOD CELL COUNT(AUTO) 4.33 MIL/uL (4.20-6.10); RED CELL DISTRIBUTION WIDTH 22.1 % (11.6-13.7); WHITE BLOOD COUNT (AUTO) 7.6 K/uL (4.8-10.8)
[2018-08-08 11:50] LABS: ANION GAP 13.7 (8-16); CARBON DIOXIDE 25.3 mmol/L (21-32); CHLORIDE 102 mmol/L (98-107); CREATININE 1.5 mg/dL (0.7-1.3); GLUCOSE 105 mg/dL (74-106); SODIUM SERUM 136 mmol/L (136-145); UREA NITROGEN, BLOOD 23 mg/dL (7-18)
[2018-08-08 11:57] LABS: ALBUMIN 3.3 g/dL (3.4-5.0); ASPARTATE AMINOTRANSFERASE 16 U/L (15-37); TOTAL BILIRUBIN 0.3 mg/dL (0.0-1.0)
--- NOTE | 2018-08-08 12:16 | NUR ---
pt stated pain relieved.
--- NOTE | 2018-08-08 12:20 | NUR ---
offered pt lunch tray.
[2018-08-08 12:54] LABS: APPEARANCE,URINE HAZY (CLEAR); BILIRUBIN,URINE NEGATIVE (NEGATIVE); BLOOD, URINE 1+ (NEGATIVE); COLOR,URINE YELLOW (YELLOW); LEUKOCYTE ESTERASE ,URINE 2+ (NEGATIVE); NITRITE, URINE NEGATIVE (NEGATIVE); UGLUCOSE NEGATIVE (NEGATIVE)
[2018-08-08 13:07] LABS: RBC,URINE 0-5 /HPF (0-5)
[2018-08-08] MEDS ORDERED: NITROFURANTOIN 100 MG CAP PO STA (13:08)
--- NOTE | 2018-08-08 13:38 | NUR ---
called philip gould [phone], spoke to yoko, updated pt's situation. notified pt will be transferred back to facility.
--- NOTE | 2018-08-08 14:01 | NUR ---
[facility] at bedside for return transfer to [facility].
--- NOTE | 2018-08-08 14:06 | NUR ---
report given. discharge paper work given to ems employee. pt vitals stable.
[2018-08-08 14:10] VITALS: BP 153/60
== END 2018-08-08 14:06 | disposition home or self-care (01) ==
LOC: MED 10:21
DX: T83.018A Breakdown (mechanical) of other urinary catheter, initial encounter (principal); N39.0 Urinary tract infection, site not specified; J44.9 Chronic obstructive pulmonary disease, unspecified; E11.9 Type 2 diabetes mellitus without complications; F03.90 Unspecified dementia, unspecified severity, without behavioral disturbance, psychotic disturbance, mood disturbance, and anxiety; I10 Essential (primary) hypertension; E03.9 Hypothyroidism, unspecified; F41.9 Anxiety disorder, unspecified; Z98.890 Other specified postprocedural states; Z79.82 Long term (current) use of aspirin; Z79.4 Long term (current) use of insulin; Z79.899 Other long term (current) drug therapy; Y84.6 Urinary catheterization as the cause of abnormal reaction of the patient, or of later complication, without mention of misadventure at the time of the procedure
CPT/HCPCS: 36415; 51702; 80053; 81001; 82948; 85025; 87086; 87186; 99284

== ENCOUNTER 2018-09-05 18:06 | Emergency (ER) | payer MEDICARE, BC ==
[~2018-09-05] VITALS: Ht 165.1 cm; Wt 72.6 kg
[~2018-09-05 18:06] MED LIST changes: +ACET-5636 PO; +ATOR10TA PO; +BUS5 PO; +FINA5TAB1 PO; +GABA300C PO; +INSU100S22 SC; +LEVE500T9 PO; +MIRT15TA PO; +OMEP20TC PO; +SERT50TA PO; +TAMS0.4C96 PO
--- NOTE | 2018-09-05 18:06 | NUR ---
Patient JESSICA BLS from SN[facility], transferred to bed 9. RN evaluating patient at bedside.
[2018-09-05 18:15] VITALS: BP 169/85
--- NOTE | 2018-09-05 18:45 | NUR ---
# 16 FR Santamaria catheter with ml utilizing sterile technique. Immediate return of ml urine noted. Bedside drainage bag placed below level of bladder. Pt tolerated procedure.
--- NOTE | 2018-09-05 18:46 | NUR ---
77 y/o male c/o of waters catheter discomfort. 16 fr. indwelling catheter noted. Patient states that he was taking Macrobid for a previous urinary tract infection and needs waters catheter replaced.. Pt. is a/o x 3. Urine is yellow and clear. Patient c/o of headache and back pain of a 08/17. PMH: Bradycardia
--- NOTE | 2018-09-05 19:26 | NUR ---
RECEIVED REPORT FROM JUDY ABREU. SEGURA CATH DRAINING ADEQUATE AMOUNT OF YELLOW URINE. PT AAOX4 IN NO ACUTE DISTRESS. WILL CONTINUE TO MONITOR CLOSELY. Addendum: 09/05/18 at 2004 by MEDALBERTO RECEIVED REPORT FROM JUDY ABREU. SEGURA CATH WITH 400ML YELLOW URINE IN BAG. NO HEMATURIA, NO SEDIMENTS NOTED. PT AAOX4 IN NO ACUTE DISTRESS. WILL CONTINUE TO MONITOR CLOSELY.
[2018-09-05] MEDS ORDERED: ACETAMINOPHEN EXTRA STRENGTH 500 MG TAB PO ONE (19:35)
--- NOTE | 2018-09-05 19:40 | NUR ---
PT C/O HEADACHE AT THIS TIME 08/17. ED MD DR. MULLER MADE AWARE WITH ORDER FOR TYLENOL 1000MG. PT IN STABLE CONDITION.
--- NOTE | 2018-09-05 19:44 | NUR ---
DR. MULLER ASSESSING PT AT BEDSIDE AT THIS TIME.
--- NOTE | 2018-09-05 20:24 | NUR ---
CALLED AND LEFT VOICE MAIL WITH FAMILY, SISTER EMELINA. AWATING CALL BACK. PT AT CHAIRSIDE WITH VSS. NO DISTRESS OF ANY TYPE NOTED. CONTINUE TO MONITOR.
--- NOTE | 2018-09-05 20:35 | NUR ---
[facility] TO TRANSPORT PT BACK TO [facility]. ETA IS 0100. PT MADE AWARE AND ERMD MADE AWARE.
[2018-09-05] MEDS ORDERED: HYDROcodone/APAP 5/325 MG 1 TAB TAB PO ONE (21:55)
[2018-09-06 02:40] VITALS: BP 151/83
--- NOTE | 2018-09-06 02:40 | NUR ---
PT DISCHARGE WITH PAPERWORK. NO RX PROVIDED. PT PICKED UP BY [facility], REPORT GIVEN TO [facility] STAFF. EDUCATED PT REGARDING DISCHARGE DIAGNOSIS. PT VSS. TOLD PT TO FOLLOW UP WITH PCP AND WHEN TO RETURN TO ED. ALL QUESTIONS ANSWERED.
== END 2018-09-06 02:40 ==
LOC: MED 18:06
DX: T83.018A Breakdown (mechanical) of other urinary catheter, initial encounter (principal); J44.9 Chronic obstructive pulmonary disease, unspecified; E11.9 Type 2 diabetes mellitus without complications; F03.90 Unspecified dementia, unspecified severity, without behavioral disturbance, psychotic disturbance, mood disturbance, and anxiety; I10 Essential (primary) hypertension; E03.9 Hypothyroidism, unspecified; Z86.73 Personal history of transient ischemic attack (TIA), and cerebral infarction without residual deficits; Z79.82 Long term (current) use of aspirin; Z79.4 Long term (current) use of insulin; Z79.899 Other long term (current) drug therapy; Y84.6 Urinary catheterization as the cause of abnormal reaction of the patient, or of later complication, without mention of misadventure at the time of the procedure; Y92.89 Other specified places as the place of occurrence of the external cause
CPT/HCPCS: 51702; 99284

== ENCOUNTER 2018-09-10 07:36 | Emergency (ER) | payer MEDICARE, BC ==
[~2018-09-10] VITALS: Ht 172.7 cm; Wt 84.4 kg
[2018-09-10 07:36] VITALS: BP 189/81
[2018-09-10] MEDS ORDERED: ACETAMINOPHEN EXTRA STRENGTH 500 MG TAB PO ONE (07:45)
[2018-09-10] MEDS ORDERED: hydrALAZINE 20 MG/ML VIAL IVP ONE (07:45)
[2018-09-10] MEDS ORDERED: NACL 0.9% 1,000 ML IV ONE (07:45)
[2018-09-10] MEDS ORDERED: MORPHINE SULFATE 2 MG/ML SYR IVP ONE (08:25)
[2018-09-10 09:00] LABS: APPEARANCE,URINE SL CLOUDY (CLEAR); BILIRUBIN,URINE NEGATIVE (NEGATIVE); BLOOD, URINE 3+ (NEGATIVE); COLOR,URINE YELLOW (YELLOW); LEUKOCYTE ESTERASE ,URINE 3+ (NEGATIVE); NITRITE, URINE NEGATIVE (NEGATIVE); UGLUCOSE NEGATIVE (NEGATIVE)
[2018-09-10 09:20] LABS: RBC,URINE 11-20 (MOD) /HPF (0-5); WBC,URINE 16-25 (MOD) /HPF (0-5)
[2018-09-10] MEDS ORDERED: MORPHINE SULFATE 4 MG/ML SYR IVP ONE (09:30)
[2018-09-10] MEDS ORDERED: cloNIDine 0.1 MG TAB PO ONE (09:30)
[2018-09-10] MEDS ORDERED: LEVOFLOXACIN 500 MG TAB PO ONE (09:30)
[2018-09-10] MEDS ORDERED: BISA-213 RC (09:41)
[2018-09-10] MEDS ORDERED: FERR325E14 PO (09:41)
[2018-09-10] MEDS ORDERED: AMLO10TA PO (09:41)
[2018-09-10] MEDS ORDERED: SUCR1TAB35 PO (09:41)
[2018-09-10] MEDS ORDERED: clonazePAM 0.5 MG TAB PO ONE (10:05)
[2018-09-10 11:00] VITALS: BP 131/86
== END 2018-09-10 11:00 ==
LOC: MED 07:36
DX: T85.628A Displacement of other specified internal prosthetic devices, implants and grafts, initial encounter (principal); N39.0 Urinary tract infection, site not specified; E86.0 Dehydration; J44.9 Chronic obstructive pulmonary disease, unspecified; E11.9 Type 2 diabetes mellitus without complications; F03.90 Unspecified dementia, unspecified severity, without behavioral disturbance, psychotic disturbance, mood disturbance, and anxiety; E03.9 Hypothyroidism, unspecified; I10 Essential (primary) hypertension; Z86.73 Personal history of transient ischemic attack (TIA), and cerebral infarction without residual deficits; Z79.82 Long term (current) use of aspirin; Z79.4 Long term (current) use of insulin; Z79.899 Other long term (current) drug therapy; Y84.6 Urinary catheterization as the cause of abnormal reaction of the patient, or of later complication, without mention of misadventure at the time of the procedure
CPT/HCPCS: 51702; 81001; 87086; 87186; 96361; 96374; 96375; 99284; J0360; J2270; J7030

== ENCOUNTER 2018-10-08 14:32 | Emergency (ER) | payer MEDICARE, BC ==
[~2018-10-08] VITALS: Ht 177.8 cm; Wt 77.1 kg
[~2018-10-08 14:32] MED LIST changes: +AMLO10TA PO; -AMLO5TAB6 PO; -AMOX500C25 PO; -ASPI-1205 PO; -ATRO1TAB PO; +BISA-213 RC; -CALC-567 PO; -CLAR500T PO; -CLON0.5T11 PO; -ELA25 PO; -FURO-572 PO; -HYDR-4420 PO; -IMO2 PO; -INSU100S22 SC; -LACT10CA PO; -ORE25 PO; -PANT40EC28 PO; +SUCR1TAB35 PO; -SUCR1TAB56 PO; -ZOLP10TA1 PO; -ZOS3.375PM IV
--- NOTE | 2018-10-08 14:32 | NUR ---
Patient BIBA BLS, transferred to bed 5. RN evaluating patient at bedside.
[2018-10-08 14:40] VITALS: BP 182/106
--- NOTE | 2018-10-08 14:40 | NUR ---
PT BIBA C/O LEAKING SEGURA CATHETER BAG. PT HAD CATHETER PUT IN 3 WEEKS AGO AT [facility], CATHETER BAG IS NOW LEAKING. PT HAS 20OML OF YELLOW HAZY URINE WITH STRONG ODOR. NO ERYTHEMA OR EDEMA AT INSERTION SITE, THICK WHITE DISCHARGE VISIBLE. PT STATES HE JUST GOT OVER UTI. CHRONIC BACK PAIN AT 8/10. VSS. ER TO SEE PT. MEDHX:HTN, HLD, ANEMIA, DM, HYPOTHYROIDISM, CHRONIC PAIN,ARTHRITIS
--- NOTE | 2018-10-08 15:50 | NUR ---
Dr. Gannon evaluating patient at bedside.
--- NOTE | 2018-10-08 16:15 | NUR ---
# 16 FR Santamaria catheter with 10 ml utilizing sterile technique. Immediate return of 100 ml CLEAR YELLOW urine noted. Bedside drainage bag placed below level of bladder. Urine sample collected and sent to lab. Pt tolerated procedure WELL.
--- NOTE | 2018-10-08 16:42 | NUR ---
WALKED URINE SAMPLE TO LAB
[2018-10-08 17:23] LABS: APPEARANCE,URINE CLEAR (CLEAR); BILIRUBIN,URINE NEGATIVE (NEGATIVE); BLOOD, URINE 1+ (NEGATIVE); COLOR,URINE YELLOW (YELLOW); LEUKOCYTE ESTERASE ,URINE 2+ (NEGATIVE); NITRITE, URINE NEGATIVE (NEGATIVE); PH,URINE 6.5 (5.0-9.0); UGLUCOSE NEGATIVE (NEGATIVE)
[2018-10-08] MEDS ORDERED: ACETAMINOPHEN 325 MG TAB PO ONE (17:30)
[2018-10-08 17:34] LABS: WBC,URINE TOO MANY TO COUNT /HPF (0-5)
--- NOTE | 2018-10-08 17:50 | NUR ---
PT RECIEVED CONSISTANT CARBOHYDRATE MEAL TRAY FROM KITCHEN AND IS EATING AT THIS TIME. VSS. PT REPORTS PAIN AT 6/10. DENIES ANY DISCOMFORT W/ SEGURA CATHETER, 350ML CLEAR YELLOW URINE VISIBLE IN SEGURA BAG.
--- NOTE | 2018-10-08 17:55 | NUR ---
Contacted Mynor Mukherjee and no transportation available for patient at this time. Transport services go home at 1500.
--- NOTE | 2018-10-08 18:33 | NUR ---
CALLED TATY KENYON TO GIVE REPORT THAT PT WILL BE GOING BACK IN 90-120 MINUTES.
--- NOTE | 2018-10-08 19:04 | NUR ---
RECEIVED REPORT FROM JUDY GARCIA. PT IN BED RESTIN. VSS AT THIS TIME.
--- NOTE | 2018-10-08 19:04 | NUR ---
Patient discharged with v/s stable. Written and verbal after care instructions given and explained. Patient alert, oriented and verbalized understanding of instructions. PT WAITING IN BED FOR Ambulance Transport with to residential. All questions addressed prior to discharge. ID band removed. Patient advised to follow up with PMD. Rx of LEVAQUIN given. Patient educated on indication of medication including possible reaction and side effects. Opportunity to ask questions provided and answered.
[2018-10-08 19:55] VITALS: BP 115/82
--- NOTE | 2018-10-08 19:55 | NUR ---
PT PICKED UP BY JADYN VIA [facility] GOING TO [facility]. PT VSS AT THIS TIME, URINARY BAG DRAINING YELLOW URINE WITH 700ML OUTPUT.
== END 2018-10-08 19:55 | disposition home or self-care (01) ==
LOC: MED 14:32
DX: T83.098A Other mechanical complication of other urinary catheter, initial encounter (principal); J44.9 Chronic obstructive pulmonary disease, unspecified; I10 Essential (primary) hypertension; E03.9 Hypothyroidism, unspecified; Z86.79 Personal history of other diseases of the circulatory system; Z86.73 Personal history of transient ischemic attack (TIA), and cerebral infarction without residual deficits; Z79.899 Other long term (current) drug therapy; Y84.6 Urinary catheterization as the cause of abnormal reaction of the patient, or of later complication, without mention of misadventure at the time of the procedure; Y92.89 Other specified places as the place of occurrence of the external cause
CPT/HCPCS: 51702; 81001; 87086; 87186; 99283; 99284

== ENCOUNTER 2018-12-10 20:52 | Emergency (ER) | payer MEDICARE, BC ==
[~2018-12-10] VITALS: Ht 177.8 cm; Wt 79.4 kg
--- NOTE | 2018-12-10 20:52 | NUR ---
PT BIBA BLS. TAKEN TO BED 9
--- NOTE | 2018-12-10 20:57 | NUR ---
Dr. Rosario examining patient.
--- NOTE | 2018-12-10 21:00 | NUR ---
78 YO MALE FROM [facility]; TATY DURHAM BIBA FOR C/O SEGURA DISCONTINUED WITH BALLOON INFLATED. PT STATES, "THE STAFF @ [facility] PULLED MY SEGURA OUT." NO BLEEDING OR DRAINAGE NOTED FROM [facility]. PT C/O TENDER PAIN 5/10 THROBBING. GURNEY LOCKED IN LOWEST POSITION. HX: SEIZURE, HTN, BPH AX: DENIES
[2018-12-10 21:03] VITALS: BP 196/95
[2018-12-10 22:16] LABS: APPEARANCE,URINE CLEAR (CLEAR); BILIRUBIN,URINE NEGATIVE (NEGATIVE); BLOOD, URINE TRACE-I (NEGATIVE); COLOR,URINE YELLOW (YELLOW); LEUKOCYTE ESTERASE ,URINE 1+ (NEGATIVE); NITRITE, URINE NEGATIVE (NEGATIVE); PH,URINE 5.5 (5.0-9.0); UGLUCOSE NEGATIVE (NEGATIVE)
[2018-12-10 22:28] LABS: RBC,URINE 0-5 /HPF (0-5)
[2018-12-10] MEDS ORDERED: CEPHALEXIN 500 MG CAP PO ONE (23:05)
--- NOTE | 2018-12-10 23:45 | NUR ---
CALLED RICKY DURHAM, SHMUEL ACHARYA COUTURE DRESSMAKER REGARDING UPCOMING DISCHARGE, TRANSPORT SETUP, ETA 0430 BY .
--- NOTE | 2018-12-11 02:00 | NUR ---
PT SITTING UP IN BED; C/O BACK PAIN 07/18. ERMD MADE AWARE. NORCO GIVEN.
[2018-12-11] MEDS ORDERED: HYDROcodone/APAP 5/325 MG 1 TAB TAB PO ONE (02:25)
--- NOTE | 2018-12-11 03:02 | NUR ---
PAIN REASSESSED; FLACC 0. PT HAS EYES CLOSED, VSS. WILL CONTINUE TO OBSERVE.
--- NOTE | 2018-12-11 03:14 | NUR ---
[facility] AT BEDSIDE
--- NOTE | 2018-12-11 03:20 | NUR ---
Patient discharged with v/s stable. Written and verbal after care instructions given and explained. Patient alert, oriented and verbalized understanding of instructions. Pt discharged with EMT BLS via gurney. All questions addressed prior to discharge. ID band removed. Patient advised to follow up with PMD. Rx of AUGMENTIN given. Patient educated on indication of medication including possible reaction and side effects. Opportunity to ask questions provided and answered.
[2018-12-11 03:37] VITALS: BP 141/82
== END 2018-12-11 03:20 | disposition home or self-care (01) ==
LOC: MED 20:52
DX: T83.021A Displacement of indwelling urethral catheter, initial encounter (principal); N39.0 Urinary tract infection, site not specified; J44.9 Chronic obstructive pulmonary disease, unspecified; I10 Essential (primary) hypertension; E03.9 Hypothyroidism, unspecified; Z86.73 Personal history of transient ischemic attack (TIA), and cerebral infarction without residual deficits
CPT/HCPCS: 51702; 81001; 87086; 99284

== ENCOUNTER 2020-01-16 14:37 | Inpatient (IN) | payer BC, MEDICARE ==
[~2020-01-16] VITALS: Ht 177.8 cm; Wt 99.8 kg
[~2020-01-16 14:37] MED LIST changes: +MIRT-91 PO; -MIRT15TA PO
[2020-01-16 14:47] VITALS: BP 170/92
--- NOTE | 2020-01-16 15:14 | NUR ---
79 y/o male biba from [facility] for covid + test result. Pt denies sob/chest pain. + cough, states no taste or smell. medhx: Alzheimers, COPD, HTN NKA
--- NOTE | 2020-01-16 16:16 | NUR ---
hydro technician at pt bedside.
--- NOTE | 2020-01-16 16:36 | NUR ---
staff cytotechnologist at pt bedside.
[2020-01-16 16:37] LABS: BASOPHILS # (AUTO) 0.1 K/uL (0.00-0.22); BASOPHILS % (AUTO) 0.9 % (0.0-2.0); EOSINOPHILS # (AUTO) 0.2 K/uL (0-0.4); EOSINOPHILS % (AUTO) 2.5 % (0.0-4.0); HEMATOCRIT 35.7 % (36-52); HEMOGLOBIN 11.4 g/dL (12.0-18.0); LYMPHOCYTES # (AUTO) 1.2 K/uL (2.0-11.5); LYMPHOCYTES % (AUTO) 14.4 % (20.5-51.1); MEAN CORPUSCULAR HEMOGLOBIN 26 pg (27-31); MEAN CORPUSCULAR HGB CONC 32 g/dL (33-37); MEAN CORPUSCULAR VOLUME 82.9 fL (80-94); MONOCYTES # (AUTO) 0.6 K/uL (0.8-1.0); MONOCYTES % (AUTO) 6.5 % (1.7-9.3); NEUTROPHILS # (AUTO) 6.5 K/uL (1.8-7.7); NEUTROPHILS % (AUTO) 75.7 % (42.2-75.2); PLATELET COUNT (AUTO) 267 K/uL (140-450); RED BLOOD CELL COUNT(AUTO) 4.31 MIL/uL (4.20-6.10); RED CELL DISTRIBUTION WIDTH 15.4 % (11.6-13.7); WHITE BLOOD COUNT (AUTO) 8.6 K/uL (4.8-10.8)
--- NOTE | 2020-01-16 16:37 | NUR ---
IV establlished to right wrist 20G, good blood return.
[2020-01-16 16:54] LABS: PROTHROMBIN TIME 9.9 secs (10.8-13.4)
--- NOTE | 2020-01-16 17:02 | NUR ---
INFLUENZA A and B collected and walked to lab.
[2020-01-16 17:03] LABS: ALBUMIN 3.3 g/dL (3.4-5.0); ANION GAP 12.2 (8-16); ASPARTATE AMINOTRANSFERASE 20 U/L (15-37); CARBON DIOXIDE 30.1 mmol/L (21-32); CHLORIDE 105 mmol/L (98-107); CREATININE 1.8 mg/dL (0.6-1.3); GLUCOSE 123 mg/dL (74-106); SODIUM SERUM 141 mmol/L (136-145); TOTAL BILIRUBIN 0.2 mg/dL (0.0-1.0); UREA NITROGEN, BLOOD 24 mg/dL (7-18)
[2020-01-16 17:11] LABS: POTASSIUM 6.3 mmol/L (3.5-5.1)
[2020-01-16] MEDS ORDERED: NACL 0.9% 1,000 ML IV ONE (17:55)
[2020-01-16] MEDS ORDERED: CALCIUM GLUCONATE 10% 1000 MG/10 ML VIAL IVP ONE (17:55)
[2020-01-16] MEDS ORDERED: ALBUTEROL HFA MDI 90 MCG/ACTUATION 8 GM INH ONE (17:55)
[2020-01-16] MEDS ORDERED: oxyCODONE 10 MG TABER PO ONE (17:55)
[2020-01-16] MEDS ORDERED: INSULIN REGULAR, HUMAN 100 UNIT/ML VIAL IVP ONE (17:55)
[2020-01-16 18:12] LABS: APPEARANCE,URINE CLEAR (CLEAR); BILIRUBIN,URINE NEGATIVE (NEGATIVE); BLOOD, URINE TRACE-I (NEGATIVE); COLOR,URINE YELLOW (YELLOW); LEUKOCYTE ESTERASE ,URINE 3+ (NEGATIVE); NITRITE, URINE POSITIVE (NEGATIVE); UGLUCOSE NEGATIVE (NEGATIVE)
--- NOTE | 2020-01-16 18:40 | NUR ---
Called respiratory for missing dose ventolin due at 1755. RT stated they would do it stewart.
--- NOTE | 2020-01-16 18:43 | NUR ---
Pt repositioned for comfort, HOB elevated, VSS, will continue to monitor.
[2020-01-16 19:01] LABS: WBC,URINE 20-60 /HPF (0-5)
[2020-01-16 19:02] LABS: TRIPLE PHOSPHATE CRYSTAL,UR 0-10 /HPF (None Seen)
--- NOTE | 2020-01-16 19:18 | NUR ---
Gave report to JUDY Richardson, transfered care at this time.
--- NOTE | 2020-01-16 19:40 | NUR ---
COVID SWAB COLLECTED AND SENT TO LAB.
[2020-01-16] MEDS ORDERED: HYDROcodone/APAP 7.5/325 MG 1 TAB PO PRN (20:55)
[2020-01-16] MEDS ORDERED: POTASSIUM CHLORIDE 10 MEQ TABER PO PRN (20:55)
[2020-01-16] MEDS ORDERED: guaiFENesin DM 200/20 MG-10 ML 10 ML UDC PO PRN (20:55)
[2020-01-16] MEDS ORDERED: DOCUSATE SODIUM 100 MG GELCAP PO PRN (20:55)
[2020-01-16] MEDS ORDERED: ACETAMINOPHEN 325 MG TAB PO PRN (20:55)
[2020-01-16] MEDS ORDERED: ALBUTEROL SULFATE/IPRATROPIU 3 ML SOL IH PRN (21:00)
[2020-01-16] MEDS ORDERED: ALBUTEROL HFA MDI 90 MCG/ACTUATION 8 GM INH PRN (21:00)
--- NOTE | 2020-01-16 21:00 | NUR ---
REPLACED SEGURA CATH IN ER. 16 [address] CATH IN PL[address] WITH 300ML OF CLEAR YELLOW URINE.
[2020-01-16 21:25] LABS: CHOL/HDL RATIO 2.9 (1-4.5); FREE T4 (FREE THYROXINE) 0.86 ng/dL (0.76-1.46); MAGNESIUM 2.2 mg/dL (1.8-2.4); PHOSPHORUS 4.5 mg/dL (2.5-4.9); THYROID STIMULATING HORMONE 2.37 uIU/mL (0.34-3.74)
[2020-01-16] MEDS ORDERED: cefTRIAXone 1,000 MG VIAL ONE (22:29)
[2020-01-16] MEDS: NACL 0.9% 1,000 ML IV SCH (22:36)
--- NOTE | 2020-01-16 23:00 | NUR ---
PT CHANGED AND REPOSITIONED COMFORTABLY IN BED. NO DISTRESS NOTED AT THIS TIME.
[2020-01-17] MEDS: ALBUTEROL SULFATE/IPRATROPIU 3 ML SOL IH SCH ×3 (01:00→13:00)
--- NOTE | 2020-01-17 01:52 | NUR ---
TX NOT GIVEN DUE TO COVID 19 PROTOCOL.
--- NOTE | 2020-01-17 04:00 | NUR ---
PT SLEEPING COMFORTABLY WITH EQUAL CHEST RISE AND FALL.
[2020-01-17 06:02] LABS: BASOPHILS # (AUTO) 0.1 K/uL (0.00-0.22); BASOPHILS % (AUTO) 1.3 % (0.0-2.0); EOSINOPHILS # (AUTO) 0.2 K/uL (0-0.4); EOSINOPHILS % (AUTO) 2.7 % (0.0-4.0); HEMATOCRIT 29.2 % (36-52); HEMOGLOBIN 9.2 g/dL (12.0-18.0); LYMPHOCYTES # (AUTO) 1.6 K/uL (2.0-11.5); LYMPHOCYTES % (AUTO) 23.2 % (20.5-51.1); MEAN CORPUSCULAR HEMOGLOBIN 26 pg (27-31); MEAN CORPUSCULAR HGB CONC 32 g/dL (33-37); MEAN CORPUSCULAR VOLUME 83.4 fL (80-94); MONOCYTES # (AUTO) 0.5 K/uL (0.8-1.0); MONOCYTES % (AUTO) 7.8 % (1.7-9.3); NEUTROPHILS # (AUTO) 4.3 K/uL (1.8-7.7); PLATELET COUNT (AUTO) 193 K/uL (140-450); RED BLOOD CELL COUNT(AUTO) 3.49 MIL/uL (4.20-6.10); RED CELL DISTRIBUTION WIDTH 15.8 % (11.6-13.7); WHITE BLOOD COUNT (AUTO) 6.7 K/uL (4.8-10.8)
[2020-01-17 06:12] LABS: CARBON DIOXIDE 28.4 mmol/L (21-32); CHLORIDE 111 mmol/L (98-107); CREATININE 1.4 mg/dL (0.6-1.3); GLUCOSE 52 mg/dL (74-106); POTASSIUM 4.4 mmol/L (3.5-5.1); SODIUM SERUM 144 mmol/L (136-145); UREA NITROGEN, BLOOD 21 mg/dL (7-18)
[2020-01-17] MEDS: LEVOTHYROXINE 0.05 MG TAB PO SCH (06:56)
--- NOTE | 2020-01-17 07:30 | NUR ---
Pt report given to JUDY BARKER. Transfer of care at this time.
--- NOTE | 2020-01-17 07:41 | NUR ---
PT ALERT AND AWAKE, BREATHING EVEN AND UNLABORED. NO DISTRESS NOTED. PT ON MONITOR, VS STABLE, HR IN 50'S
[2020-01-17] MEDS: oxyCODONE 10 MG TABER PO PRN ×3 (08:40→21:02)
[2020-01-17] MEDS ORDERED: AZITHROMYCIN 250 MG TAB PO SCH (09:00)
[2020-01-17] MEDS ORDERED: NON-FORMULARY ITEM (Levetiracetam* (Keppra Xr*) 500 MG) PO SCH (09:00)
[2020-01-17] MEDS: busPIRone 5 MG TAB PO SCH ×2 (09:36→20:47)
[2020-01-17] MEDS: SUCRALFATE 1 GM TAB PO SCH ×4 (09:36→20:47)
[2020-01-17] MEDS: FERROUS SULFATE 325 MG TABEC PO SCH (09:37)
[2020-01-17] MEDS: GABAPENTIN 300 MG CAP PO SCH ×3 (09:38→16:51)
[2020-01-17] MEDS: SERTRALINE 50 MG TAB PO SCH (09:39)
[2020-01-17] MEDS: ZINC SULF 220 MG CAP PO SCH (09:40)
[2020-01-17] MEDS: FINASTERIDE 5 MG TAB PO SCH (09:40)
[2020-01-17] MEDS: PANTOPRAZOLE 40 MG TABEC PO SCH (09:41)
[2020-01-17] MEDS: amLODIPine 5 MG TAB PO SCH (09:41)
[2020-01-17] MEDS: ASCORBIC ACID 500 MG TAB PO SCH (09:42)
[2020-01-17] MEDS: levETIRAcetam 100 MG/ML ORASYR PO SCH ×2 (09:42→20:46)
--- NOTE | 2020-01-17 10:00 | NUR ---
Patient will be admitted to care of Dr Cobb. Admited to tele. Will go to room 124B. Belongings list completed. Report to Lai KIM.
[2020-01-17 10:05] VITALS: BP 148/65
--- NOTE | 2020-01-17 10:05 | NUR ---
RECEIVED REPORT FROM ER NURSE FOR CONTINUITY OF CARE. PATIENT IS AWAKE, ALERT AND ORIENTED X4. ABLE TO MAKE NEEDS KNOWN. PATIENT WAS RECEIVED HAVING 4L NC, O2 SAT 100%. VITAL SIGNS CHECKED, DECREASED TO 2L/MIN, O2 SAT 96%-98%. SKIN WARM AND DRY. BEDBOUND PATIENT, BUT ABLE TO TURN SELF FROM SIDE TO SIDE. SEGURA CATHETER IN PLACE, WITH CLEAR YELLOWISH URINE COLLECTED. MRSA COLLECTED. ORIENTED THE PATIENT TO THE ROOM AND HOSPITAL ENVIRONMENT. SAFETY MEASURES IN PLACE, CALL LIGHT WITHIN REACH. WILL CONTINUE TO MONITOR.
--- NOTE | 2020-01-17 10:10 | NUR ---
PT TAKEN TO ROOM AT THIS TIME
--- NOTE | 2020-01-17 11:05 | NUR ---
INFORMED DR. CURTIS THAT PATIENT'S BS LEVEL 102, DID NOT EAT HIS BREAKFAST. MORNING LAB GLUCOSE LEVEL ONLY 52. DR. CURTIS STATED THAT ADMINISTER LANTUS AFTER LUNCH. WILL FOLLOW UP.
--- NOTE | 2020-01-17 11:09 | NUR ---
SOCIAL WORK NOTE: SW WAS UNABLE TO MEET PATIENT AT BEDSIDE DUE TO MEDICAL CONDITION. SW CONTACTED LEOPOLDO DEON [phone]. SW WAS UNABLE TO LEAVE . SW CONTACTED NURSE FOR CONTACT INFORMATION AND NONE WAS AVAILABLE. Addendum: 01/17/20 at 1349 by Todd Isaac Patient's Orientation Unable To Assess Information Provided By [facility] Comments SW WAS UNABLE TO MEET PATIENT AT BEDSIDE DUE TO MEDICAL CONDITION. SW LEFT PATIENT'S SISTER/WAYNE A . SW COMPLETED ASSESSMENT WITH [facility] STAFF. Personnel Specialist, Realtionship and Phone Number LEOPOLDO TAYLOR/WAYNE [phone] [facility] Power of Applications Engineering Manager No Does Patient Have a POLST Yes Identifying Problems No Social Work Triggers Is A Social Work Consult Needed No Mandate Report Filed No Explanation Of Identifying Problems PATIENT IS AN 79-YEAR-OLD MALE ADMITTED FOR COVID, PNEUMONIA, AND HYPOXIA. PATIENT HAS PMHX OF COPD, HYPERETNSION, HLD, AND ALZHEIMER'S. PATIENT WAS ADMITTED FROM [facility] ASSISTED LIVING. Admitted From Assisted Living/Resident Pre-Admission Level Of Functioning Status Total Care Level Of Functioning Comment PER [facility] STAFF, PATIENT REQUIRES TOTAL ASSISTANCE. Prior Resources/Services Used In Last 12 Months Assisted Living Prior DME Wheelchair Dialysis Comments N/A Living Situation 2 Story Patient Had Caregiver No Home Support No Caregiver Issues Financial Issues No Known Financial Issue Factors/Needs SNF/NH Placement Explanation And Or Other Factors Affecting/Possible DC Needs PER [facility] STAFF, PATIENT IS UNABLE TO RETURN TO ASSISTED LIVING IF PATIENT IS POSITIVE FOR COVID. Discharge Plan Comments TENTATIVE DISCHARGE PLAN IS SNF PLACEMENT. DC Plan Status Initiated
--- NOTE | 2020-01-17 13:29 | NUR ---
SCHEDULED MEDICATION GIVEN, EDUCATION PROVIDED. PATIENT TOLERATED WELL AND VERBALIZED UNDERSTANDING OF THE TEACHINGS. NO ACUTE DISTRESS NOTED. WILL CONTINUE TO MONITOR.
[2020-01-17] MEDS: INSULIN LANTUS 100 UNITS/ML 10 ML VIAL SUBQ SCH (13:43)
--- NOTE | 2020-01-17 13:43 | NUR ---
8 UNITS OF LANTUS GIVEN, PER MD INSTRUCTION. HEPARIN GIVEN LATE DUE TO ER NURSE PILLED OUT THE HEPARIN FROM THE OMNICELL AND DID NOT GIVE TO THE PATIENT THIS MORNING. REACHED OUT PHARMACIST, OK TO GIVEN MORNING DOSE NOW.
[2020-01-17] MEDS ORDERED: DEXTROSE 50% 50 ML SYR IVP PRN (14:00)
--- NOTE | 2020-01-17 15:04 | NUR ---
OXYCODONE GIVEN FOR LOWER BACK PAIN, 08/17. PER PATIENT'S REQUESTS. O2 SAT 91% IN RA. 99% WITH 2L NC. INSTRUCTED PATIENT REGARDING THE NON PHARMACOLOGICAL PAIN MANAGEMENT SUCH RELAXATION, DISTRACTIONS. ENCOURAGED PATIENT TO TAKE DEEP BREATH. VERBALIZED UNDERSTANDING. SAFETY MEASURES IN PLACE, WILL CONTINUE TO MONITOR.
[2020-01-17] MEDS: NACL 0.9% 1,000 ML IV SCH (15:11)
--- NOTE | 2020-01-17 15:44 | NUR ---
HHN RX NOT GIVEN PT UNDER INVESTIGATION FOR COVID 19 PERCAUTIONS
[2020-01-17 16:00] VITALS: BP 162/76
[2020-01-17] MEDS: BLOOD GLUCOSE MONITORING 1 DEV DEV FS SCH ×2 (16:51→20:53)
--- NOTE | 2020-01-17 19:28 | NUR ---
ENDORSED PATIENT TO HAIR OR BEAUTY SALON ASSISTANT RN FOR CONTINUITY OF CARE. PATIENT IN STABLE CONDITION.
--- NOTE | 2020-01-17 19:30 | NUR ---
RECEIVED REPORT FROM DEMOND RNKELSI. PT AOX3 ON 2L N/C. NO S/S RESPIRATORY DISTRESS. NO C/O PAIN AT THIS TIME. IV SITE R WRIST 20G, INFILTRATED. HAS SEGURA CATHETER IN PLACE, DRAINING YELLOW URINE. SAFETY MEASURES IN PLACE. CALL LIGHT WITHIN REACH. WILL CONTINUE TO MONITOR
[2020-01-17 20:00] VITALS: BP 148/76
[2020-01-17] MEDS: TAMSULOSIN 0.4 MG CAP PO SCH (20:48)
[2020-01-17] MEDS: ATORVASTATIN 20 MG TAB PO SCH (20:48)
--- NOTE | 2020-01-17 20:50 | NUR ---
ADMINISTERED SCHEDULED MEDS. PT TOLERATED WELL. WILL CONTINUE TO MONITOR
--- NOTE | 2020-01-17 20:55 | NUR ---
HELD HEPARIN SUBQ. BASED ON FREQUENCY, MEDICATION TOO CLOSE FROM LAST ADMINISTRATION
[2020-01-17] MEDS: MIRTAZAPINE 15 MG TAB PO SCH (21:02)
--- NOTE | 2020-01-17 21:05 | NUR ---
ADMINISTERED OXYCONTIN FOR PT C/O 08/17 BACK PAIN. TOLERATED WELL. WILL CONTINUE TO MONITOR
--- NOTE | 2020-01-17 22:40 | NUR ---
GOT A CALL FROM LAB. PT BLOOD CX GRAM POSITIVE COCCI CLUSTERS. MADE AWARE. NEW ORDERS RECEIVED
--- NOTE | 2020-01-17 23:00 | NUR ---
PLACED NEW IV TO LEFT HAND 22G, PATENT AND INTACT, GOOD BLOOD RETURN.
[2020-01-18] VITALS: BP 131/70
--- NOTE | 2020-01-18 01:30 | NUR ---
PT ASLEEP IN BED. RESPIRATIONS EVEN AND UNLABORED. NO DISTRESS NOTED. WILL CONTINUE TO MONITOR
[2020-01-18] MEDS: ZOLPIDEM 5 MG TAB PO PRN ×2 (01:45→22:23)
[2020-01-18] MEDS ORDERED: VANCOMYCIN PER PHARMACY MC PRN (01:50)
[2020-01-18] MEDS ORDERED: VANCOMYCIN 1GM/DEXT 5% PREMIX 200 ML IV SCH (02:10)
[2020-01-18] MEDS ORDERED: VANCOMYCIN 1,000 MG VIAL ONE (03:26)
[2020-01-18 04:00] VITALS: BP 139/72
--- NOTE | 2020-01-18 04:15 | NUR ---
PT ASLEEP IN BED. NO DISTRESS NOTED. WILL CONTINUE TO MONITOR
[2020-01-18] MEDS: LEVOTHYROXINE 0.05 MG TAB PO SCH (06:01)
[2020-01-18] MEDS: BLOOD GLUCOSE MONITORING 1 DEV DEV FS SCH ×4 (06:07→19:56)
[2020-01-18] MEDS: NACL 0.9% 1,000 ML IV SCH ×2 (06:15→20:26)
[2020-01-18] MEDS: oxyCODONE 10 MG TABER PO PRN ×3 (06:25→20:14)
--- NOTE | 2020-01-18 06:30 | NUR ---
ADMINISTERED OXYCONTIN FOR PT C/O 08/17 BACK PAIN. TOLERATED WELL. WILL CONTINUE TO MONITOR
--- NOTE | 2020-01-18 07:40 | NUR ---
ENDORSED PT TO DAY RN FOR CONTINUITY OF CARE. PT IS IN STABLE CONDITION
[2020-01-18 08:08] LABS: T4 (THYROXINE) 5.2 ug/dL (4.5-12.0)
--- NOTE | 2020-01-18 08:14 | NUR ---
Patient is in bed resting. Report received from night nurse. Patient is in stable condition. 2L of O2 via nasal cannula. Left hand 22G IV. Bed in low position. Call light in reach. Two side rails up. Will continue to monitor patient throughout shift.
--- NOTE | 2020-01-18 09:13 | NUR ---
PATIENT HAS BEEN SCREENED AND CATEGORIZED MODERATE NUTRITION RISK. PATIENT WILL BE SEEN WITHIN 3-5 DAYS OF ADMISSION. 01/19/20 01/21/[address]
[2020-01-18] MEDS: INSULIN LANTUS 100 UNITS/ML 10 ML VIAL SUBQ SCH (10:33)
[2020-01-18] MEDS: busPIRone 5 MG TAB PO SCH ×2 (10:39→20:03)
[2020-01-18] MEDS: SUCRALFATE 1 GM TAB PO SCH ×4 (10:39→20:02)
[2020-01-18] MEDS: amLODIPine 5 MG TAB PO SCH (10:40)
[2020-01-18] MEDS: FINASTERIDE 5 MG TAB PO SCH (10:40)
[2020-01-18] MEDS: GABAPENTIN 300 MG CAP PO SCH ×3 (10:40→18:05)
[2020-01-18] MEDS: levETIRAcetam 100 MG/ML ORASYR PO SCH ×2 (10:40→20:04)
[2020-01-18] MEDS: FERROUS SULFATE 325 MG TABEC PO SCH (10:40)
[2020-01-18] MEDS: SERTRALINE 50 MG TAB PO SCH (10:41)
[2020-01-18] MEDS: ZINC SULF 220 MG CAP PO SCH (10:41)
[2020-01-18] MEDS: PANTOPRAZOLE 40 MG TABEC PO SCH (10:41)
[2020-01-18] MEDS: ASCORBIC ACID 500 MG TAB PO SCH (10:41)
[2020-01-18] MEDS: ONDANSETRON 4 MG/2 ML VIAL IM/IVP PRN ×2 (11:01→16:00)
[2020-01-18 11:16] LABS: BASOPHILS # (AUTO) 0.1 K/uL (0.00-0.22); BASOPHILS % (AUTO) 0.9 % (0.0-2.0); EOSINOPHILS # (AUTO) 0.2 K/uL (0-0.4); EOSINOPHILS % (AUTO) 2.6 % (0.0-4.0); HEMATOCRIT 31.8 % (36-52); HEMOGLOBIN 10.1 g/dL (12.0-18.0); LYMPHOCYTES # (AUTO) 1.2 K/uL (2.0-11.5); LYMPHOCYTES % (AUTO) 16.3 % (20.5-51.1); MEAN CORPUSCULAR HEMOGLOBIN 26 pg (27-31); MEAN CORPUSCULAR HGB CONC 32 g/dL (33-37); MONOCYTES # (AUTO) 0.5 K/uL (0.8-1.0); MONOCYTES % (AUTO) 7.2 % (1.7-9.3); NEUTROPHILS # (AUTO) 5.4 K/uL (1.8-7.7); PLATELET COUNT (AUTO) 207 K/uL (140-450); RED BLOOD CELL COUNT(AUTO) 3.84 MIL/uL (4.20-6.10); RED CELL DISTRIBUTION WIDTH 15.6 % (11.6-13.7); WHITE BLOOD COUNT (AUTO) 7.4 K/uL (4.8-10.8)
[2020-01-18 11:32] LABS: ANION GAP 10.2 (8-16); CARBON DIOXIDE 30.1 mmol/L (21-32); CHLORIDE 103 mmol/L (98-107); CREATININE 1.6 mg/dL (0.6-1.3); GLUCOSE 112 mg/dL (74-106); SODIUM SERUM 138 mmol/L (136-145); UREA NITROGEN, BLOOD 24 mg/dL (7-18)
[2020-01-18 11:47] LABS: POTASSIUM 5.3 mmol/L (3.5-5.1)
[2020-01-18] MEDS: CHLORHEXADINE GLUC 2% CLOTH TP SCH (12:00)
[2020-01-18] MEDS: MUPIROCIN CA NASAL 2% 1GM TUBE NS SCH (12:00)
[2020-01-18] MEDS: CEFEPIME 1,000 MG in DEXTROSE 5% 50 ML IV SCH ×2 (12:30→20:18)
--- NOTE | 2020-01-18 13:26 | NUR ---
DISCHARGE PLANNING: CONTACTED TATY KENYON, ABLE TO SPEAK TO FRANCIA. PER FRANCIA SHE HAS TO TRANSFER ME TO THE MED ROOM. ANSWERED BY CHAN AND PER CHAN SHE IS NOT THE ONE WHO CAN DECIDE IF THEY CAN ACCEPT THE PATIENT BACK OR NOT. SHE STATED SHE WILL TRANSFER ME TO THEIR [facility], ON HOLD FOR 10 MINS AND CALL GOT CUT OFF. CONTACTED [facility] AGAIN, SPOKE TO FRANCIA. SHE TOLD ME THAT HE WILL TRANSFER ME TO THE MED ROOM AGAIN. INFORMED HER THAT I SPOKE TO CHAN EARLIER AND GOT TRANSFERRED TO THE [facility] TOM HOWEVER THE CALL GOT CUT OFF. PER FRANCIA, TOM IS ON THE PHONE OF THE MOMENT AND TO CALL BACK IN 10 MINS. WILL FOLLOW UP. Addendum: 01/18/20 at 1442 by Todd GUIDRY IZZY CONTACTED FRANCIA AND FAXED NEGATIVE COVID RESULTS TO [facility] [phone]. PER FRANCIA, SHE IS UNABLE TO COORDINATE TRANSPORTATION SINCE TRANSPORTATION SERVICES AFTER 1:00PM. IZZY NOTIFIED ACCORDION MAKER. Addendum: 01/19/20 at 0982 by Celeste Ramirez CM DC COMMISSIONING ENGINEER: CALLED [facility] TO CLARIFY IF PATIENT CAN DC BACK TODAY. SPOKE TO THE GIRL AT THE BPO SPECIALIST SHE STATED THAT JEWELL AND KEITH IN ADMISSIONS BOTH WILL BE OUT OF THE OFFICE TODAY AND FAR SHE KNOWS PATIENT CAN NOT RETURN BECAUSE THEY RECEIVED A PHONE CALL YESTERDAY FROM OUR RN STATING THAT THE PATIENTS COVID TEST IS POSITIVE AND THERE HAS BEEN SOME MIX UP IN THE RESULTS. SPOKE TO THE RN GALE TODAY TO CLARIFY BUT SHE STATED THAT SHE DID NOT GET ANY REPORT OF THAT. WAITING ON PENDING RESULTS OF THE PCR TEST. DR. CURTIS MADE AWARE.
--- NOTE | 2020-01-18 13:55 | NUR ---
COVID swab completed and sent to lab. Spoke with patients with update.
[2020-01-18 14:08] VITALS: BP 157/75
[2020-01-18 16:51] VITALS: BP 179/76
--- NOTE | 2020-01-18 18:48 | NUR ---
Spoke with Mynor Mukherjee. Facility would prefer the updated COVID test that was completed today and sent to lab today. Spoke with [facility] and she said the COVID swab from today that is currently still pending is the test they will require for transfer to their facility.
--- NOTE | 2020-01-18 19:10 | NUR ---
Patient in bed resting. Patient in stable condition. Bed in low position. Call light in reach. Report given to night nurse.
--- NOTE | 2020-01-18 19:11 | NUR ---
RECEIVED REPORT FROM DEMOND RNGAVINO. PT AOX3 ON 2L N/C. NO S/S RESPIRATORY DISTRESS. NO C/O PAIN AT THIS TIME. IV SITE TO L HAND PATENT AND INTACT. SAFETY PRECAUTIONS IN PLACE. CALL LIGHT WITHIN REACH. WILL CONTINUE TO MONITOR
[2020-01-18 20:00] VITALS: BP 155/74
[2020-01-18] MEDS: TAMSULOSIN 0.4 MG CAP PO SCH (20:01)
[2020-01-18] MEDS: ATORVASTATIN 20 MG TAB PO SCH (20:01)
[2020-01-18] MEDS: MIRTAZAPINE 15 MG TAB PO SCH (20:01)
--- NOTE | 2020-01-18 20:20 | NUR ---
ADMINISTERED OXYCONTIN FOR PT C/O 08/17 BACK PAIN. TOLERATED WELL. WILL CONTINUE TO MONITOR
--- NOTE | 2020-01-18 20:27 | NUR ---
ADMINISTERED SCHEDULED MEDICATIONS AND PRN OXYCONTIN FOR PT C/O 08/17 BACK PAIN. TOLERATED WELL. WILL CONTINUE TO MONITOR
[2020-01-18] MEDS: INSULIN LISPRO SLIDING SCALE 100 UNITS/ML VIAL SUBQ PRN (20:29)
--- NOTE | 2020-01-18 20:32 | NUR ---
GAVE 2 UNITS INSULIN SUBQ FOR PT BLOOD SUGAR 164 PER SLIDING SCALE. TOLERATED WELL. WILL CONTINUE TO MONITOR
--- NOTE | 2020-01-18 22:25 | NUR ---
ADMINISTERED PRN LUZ FOR PT C/O TROUBLE FALLING ASLEEP. WILL CONTINUE TO MONITOR
[2020-01-19] VITALS: BP 143/70
--- NOTE | 2020-01-19 02:12 | NUR ---
PT ASLEEP IN BED. RESPIRATIONS EVEN AND UNLABORED. NO DISTRESS NOTED, WILL CONTINUE TO MONITOR
[2020-01-19 04:00] VITALS: BP 154/66
--- NOTE | 2020-01-19 04:40 | NUR ---
PT ASLEEP IN BED. NO DISTRESS NOTED. WILL CONTINUE TO MONITOR
[2020-01-19] MEDS: LEVOTHYROXINE 0.05 MG TAB PO SCH (06:00)
[2020-01-19] MEDS: BLOOD GLUCOSE MONITORING 1 DEV DEV FS SCH ×4 (06:21→20:39)
[2020-01-19 06:36] LABS: BASOPHILS # (AUTO) 0.1 K/uL (0.00-0.22); BASOPHILS % (AUTO) 0.7 % (0.0-2.0); EOSINOPHILS # (AUTO) 0.1 K/uL (0-0.4); EOSINOPHILS % (AUTO) 0.9 % (0.0-4.0); HEMATOCRIT 30.7 % (36-52); HEMOGLOBIN 9.8 g/dL (12.0-18.0); LYMPHOCYTES # (AUTO) 1.8 K/uL (2.0-11.5); LYMPHOCYTES % (AUTO) 26.5 % (20.5-51.1); MEAN CORPUSCULAR HEMOGLOBIN 26 pg (27-31); MEAN CORPUSCULAR HGB CONC 32 g/dL (33-37); MONOCYTES # (AUTO) 0.5 K/uL (0.8-1.0); MONOCYTES % (AUTO) 7.5 % (1.7-9.3); NEUTROPHILS # (AUTO) 4.4 K/uL (1.8-7.7); NEUTROPHILS % (AUTO) 64.4 % (42.2-75.2); PLATELET COUNT (AUTO) 212 K/uL (140-450); RED CELL DISTRIBUTION WIDTH 15.8 % (11.6-13.7); WHITE BLOOD COUNT (AUTO) 6.8 K/uL (4.8-10.8)
[2020-01-19 07:14] LABS: CARBON DIOXIDE 29.1 mmol/L (21-32); CHLORIDE 105 mmol/L (98-107); CREATININE 1.8 mg/dL (0.6-1.3); GLUCOSE 96 mg/dL (74-106); POTASSIUM 5.1 mmol/L (3.5-5.1); SODIUM SERUM 138 mmol/L (136-145); UREA NITROGEN, BLOOD 28 mg/dL (7-18)
--- NOTE | 2020-01-19 07:35 | NUR ---
ENDORSED PT TO DAY RN FOR CONTINUITY OF CARE. PT IS IN STABLE CONDITION
[2020-01-19 08:00] VITALS: BP 169/92
[2020-01-19] MEDS: levETIRAcetam 100 MG/ML ORASYR PO SCH ×2 (08:57→20:35)
[2020-01-19] MEDS: FINASTERIDE 5 MG TAB PO SCH (08:57)
[2020-01-19] MEDS: SERTRALINE 50 MG TAB PO SCH (08:57)
[2020-01-19] MEDS: GABAPENTIN 300 MG CAP PO SCH ×3 (08:57→17:41)
[2020-01-19] MEDS: DEXAMETHASONE 10 MG/ML VIAL IVP SCH (08:57)
[2020-01-19] MEDS: SUCRALFATE 1 GM TAB PO SCH ×4 (08:57→20:35)
[2020-01-19] MEDS: ZINC SULF 220 MG CAP PO SCH (08:58)
[2020-01-19] MEDS: amLODIPine 5 MG TAB PO SCH (08:58)
[2020-01-19] MEDS: busPIRone 5 MG TAB PO SCH ×2 (08:58→20:36)
[2020-01-19] MEDS: PANTOPRAZOLE 40 MG TABEC PO SCH (08:58)
[2020-01-19] MEDS: FERROUS SULFATE 325 MG TABEC PO SCH (08:59)
[2020-01-19] MEDS: ASCORBIC ACID 500 MG TAB PO SCH (08:59)
[2020-01-19] MEDS: CEFEPIME 1,000 MG in DEXTROSE 5% 50 ML IV SCH (09:01)
[2020-01-19] MEDS: INSULIN LANTUS 100 UNITS/ML 10 ML VIAL SUBQ SCH (09:09)
[2020-01-19] MEDS: oxyCODONE 10 MG TABER PO PRN ×3 (09:32→21:52)
[2020-01-19] MEDS ORDERED: VANCOMYCIN 1,000 MG in DEXTROSE 5% 250 ML IV SCH (10:00)
--- NOTE | 2020-01-19 10:00 | NUR ---
Pt resting in bed, aaox3, no respirations even & nonlabored in room air. Pt watching TV, no signs of distress. Call light within reach. Left hand IV 22G intact with ongoing NS @ 60ml/hr.
[2020-01-19 12:00] VITALS: BP 139/80
[2020-01-19] MEDS: MUPIROCIN CA NASAL 2% 1GM TUBE NS SCH (12:53)
[2020-01-19] MEDS: CHLORHEXADINE GLUC 2% CLOTH TP SCH (12:54)
[2020-01-19] MEDS: ALBUTEROL SULFATE/IPRATROPIU 3 ML SOL IH SCH ×2 (13:00→19:00)
[2020-01-19] MEDS: NACL 0.9% 1,000 ML IV SCH (15:35)
[2020-01-19 16:00] VITALS: BP 148/80
--- NOTE | 2020-01-19 19:15 | NUR ---
Report given to pm nurse Lisa. Pt resting in bed, watching TV, verbally responsive, respirations even & nonlabored in room air. Left hand IV intact with ongoing NS @ 60ml/hr. Call light within reach.
--- NOTE | 2020-01-19 19:25 | NUR ---
RECEIVED BEDSIDE REPORT FROM DAY SHIFT NURSE FOR CONTINUITY OF CARE. PT IS AWAKE AND ALERT. LAYING IN BED, SPEAKING APPROPRIATELY. ON RA WITH BREATHING UNLABORED. SEGURA CATHETER IN PLACE FOR VOIDING. SKIN IS WARM, DRY, AND INTACT. IV IS IN THE LEFT HAND 22 GAUGE RUNNING NS AT 60 ML PER HOUR PER ORDER. PT IS ON CONTACT PRECAUTIONS FOR MDRO ESBL URINE AND MRSA NARES POSITIVE. PCR COVID PENDING WITH DROPLET PRECAUTIONS IN PLACE. PLAN OF CARE DISCUSSED. PT IS STABLE AT THIS TIME, NO DISTRESS NOTED. WILL CONTINUE TO MONITOR.
[2020-01-19 20:00] VITALS: BP 154/78
--- NOTE | 2020-01-19 20:00 | NUR ---
VITALS WERE REPORTED BY RIBBER. O2 SAT AT 82% ON RA. I PLACED A NEW PULSE OX ON PT AND RETOOK O2 SAT READING. IT WAS 98% ON RA. PT IS STABLE.
[2020-01-19] MEDS: MEROPENEM 1,000 MG in NACL 0.9% 100 ML IV SCH (20:34)
[2020-01-19] MEDS: TAMSULOSIN 0.4 MG CAP PO SCH (20:35)
[2020-01-19] MEDS: MIRTAZAPINE 15 MG TAB PO SCH (20:35)
[2020-01-19] MEDS: ATORVASTATIN 20 MG TAB PO SCH (20:36)
--- NOTE | 2020-01-19 21:23 | NUR ---
LUZ WAS GIVEN TO PATIENT FOR PRN SLEEPLESSNESS. PT HAS BEEN TOSSING AND TURNING IN BED AND STATES HE WOULD LIKE SOMETHING TO HELP HIM SLEEP. WILL MONITOR TO SEE IF PT IS ABLE TO SLEEP. Addendum: 01/20/20 at 0202 by Lisa Dobson RN LUZ WAS ADMINISTERED AT 2323 NOT 2123.
--- NOTE | 2020-01-19 21:52 | NUR ---
OXYCONTIN WAS GIVEN PRN FOR PAIN. PT STATES HIS PAIN WAS A 8/10 IN HIS BACK. PT STATES THE PAIN AN ACHING PAIN. BP WAS 150/83 PRIOR TO ADMINISTRATION. WILL CONTINUE TO MONITOR FOR PAIN.
[2020-01-19] MEDS: ZOLPIDEM 5 MG TAB PO PRN (23:22)
[2020-01-20] VITALS: BP 153/79
--- NOTE | 2020-01-20 | NUR ---
PT ASKED FOR A BLANKET AND TO TURN DOWN THE AIR CONDITIONER. BOTH NEEDS WERE MET AND PT WAS GIVEN WATER TO DRINK. PT STATES HE DOES NOT NEED ANYTHING ELSE AT THIS TIME.
[2020-01-20] MEDS: ALBUTEROL SULFATE/IPRATROPIU 3 ML SOL IH SCH ×3 (01:00→13:00)
--- NOTE | 2020-01-20 02:04 | NUR ---
PT SOILED HIS LINENS. THEY WERE CHANGED AND PT WAS REPOSITIONED. PILLOWS WERE USED TO PAD BONY AREAS. PT TOLERATED CHANGING WELL.
--- NOTE | 2020-01-20 03:52 | NUR ---
ROUNDED ON PT. HE IS ASLEEP IN SEMI FOWLERS POSITION. PT IS COMFORTABLE AND BLANKET WAS PROVIDED FOR COMFORT. NO DISTRESS OR SOB NOTED.
[2020-01-20 04:00] VITALS: BP 154/78
--- NOTE | 2020-01-20 05:41 | NUR ---
PT IS SLEEPING COMFORTABLY. NO APPARENT SIGNS OF DISTRESS. BED IS IN THE LOWEST POSITION AND CALL LIGHT IS WITHIN REACH. IV FLUIDS ARE PATENT AND INFUSING. PT IS STABLE.
[2020-01-20] MEDS: LEVOTHYROXINE 0.05 MG TAB PO SCH (06:03)
[2020-01-20] MEDS: oxyCODONE 10 MG TABER PO PRN ×3 (06:34→17:10)
[2020-01-20] MEDS: BLOOD GLUCOSE MONITORING 1 DEV DEV FS SCH ×3 (06:34→17:14)
--- NOTE | 2020-01-20 06:35 | NUR ---
OXYCONTIN WAS GIVEN FOR SEVERE BACK PAIN AT A SCALE OF 7/10. IT IS ACHING IN CHARACTERISTIC STATED BY PT. WILL MONITOR PAIN.
--- NOTE | 2020-01-20 07:25 | NUR ---
ENDORSED PT TO DAY SHIFT NURSE FOR CONTINUITY OF CARE. PT IS STABLE AT THIS TIME. PLAN OF CARE DISCUSSED.
--- NOTE | 2020-01-20 07:26 | NUR ---
RECEIVED ENDORSEMENT FROM CLOTH PRINTER, AWAKE, ALERT, ORIENTEDX3, BREATHING SPONTANEOUSLY AT ROOM AIR, NON LABORED NOTED. WITH ONGOING IV FLUID WITH 0.9%NS AT 60ML/HOUR INFUSING AT LEFT HAND G 22 IV CANNULA NOTED. SAFETY MEASURES IN PLACE AND CONTINUE MONITOR
[2020-01-20 08:00] VITALS: BP 153/92
--- NOTE | 2020-01-20 09:38 | NUR ---
AWAKEA ND ALERT ,NOT IN DISTRESS NOTED
[2020-01-20] MEDS: SUCRALFATE 1 GM TAB PO SCH ×3 (10:51→17:10)
[2020-01-20] MEDS: ASCORBIC ACID 500 MG TAB PO SCH (10:51)
[2020-01-20] MEDS: ZINC SULF 220 MG CAP PO SCH (10:51)
[2020-01-20] MEDS: levETIRAcetam 100 MG/ML ORASYR PO SCH (10:52)
[2020-01-20] MEDS: FERROUS SULFATE 325 MG TABEC PO SCH (10:52)
[2020-01-20] MEDS: busPIRone 5 MG TAB PO SCH (10:52)
[2020-01-20] MEDS: PANTOPRAZOLE 40 MG TABEC PO SCH (10:52)
[2020-01-20] MEDS: SERTRALINE 50 MG TAB PO SCH (10:53)
[2020-01-20] MEDS: FINASTERIDE 5 MG TAB PO SCH (10:53)
[2020-01-20] MEDS: GABAPENTIN 300 MG CAP PO SCH ×3 (10:53→17:10)
[2020-01-20] MEDS: amLODIPine 5 MG TAB PO SCH (10:53)
[2020-01-20] MEDS: MUPIROCIN CA NASAL 2% 1GM TUBE NS SCH (10:54)
[2020-01-20] MEDS: DEXAMETHASONE 10 MG/ML VIAL IVP SCH (10:54)
[2020-01-20] MEDS: MEROPENEM 1,000 MG in NACL 0.9% 100 ML IV SCH (10:55)
--- NOTE | 2020-01-20 11:02 | NUR ---
GLUCOSE-97 NO INSULIN COVERAGE
[2020-01-20] MEDS: NACL 0.9% 1,000 ML IV SCH (11:03)
[2020-01-20] MEDS: INSULIN LANTUS 100 UNITS/ML 10 ML VIAL SUBQ SCH (11:18)
[2020-01-20 12:00] VITALS: BP 173/57
[2020-01-20] MEDS: CHLORHEXADINE GLUC 2% CLOTH TP SCH (12:31)
--- NOTE | 2020-01-20 12:37 | NUR ---
COMPLAINED OF ABDOMINAL PAIN 08/17,OXYCONTIN 1 TAB ORDERED PRN GIVEN. KEPT COMFORTABLE TO BED
[2020-01-20 13:22] LABS: ANION GAP 11.2 (8-16); CARBON DIOXIDE 28.4 mmol/L (21-32); CHLORIDE 103 mmol/L (98-107); CREATININE 1.8 mg/dL (0.6-1.3); GLUCOSE 105 mg/dL (74-106); POTASSIUM 4.6 mmol/L (3.5-5.1); SODIUM SERUM 138 mmol/L (136-145); UREA NITROGEN, BLOOD 30 mg/dL (7-18)
[2020-01-20] MEDS ORDERED: VANCOMYCIN 1,000 MG in DEXTROSE 5% 250 ML IV SCH (15:00)
--- NOTE | 2020-01-20 15:28 | NUR ---
FULLY AWAKE AND ALERT, DUE MEDICATION GIVEN.
[2020-01-20 16:00] VITALS: BP 148/74
--- NOTE | 2020-01-20 17:14 | NUR ---
GLUCOSE-151, HUMALOG 2UNITS SUBQ PER SLIDING SCALE GIVEN, COMPLAINED OF LOWER BACK PAIN 08/17 OXYCONTIN 1 TAB ORDERED PRN AND DUE MEDICATION GIVEN. APPARENTLY IV CANNULA AT LEFT HAND HAND SWELLING NOTED. REMOVE AND DRESSING APPLIED. IV CANNULA G22 INSERTED AT RT HAND , SYMPTOMATIC AND PATENT.
[2020-01-20] MEDS: INSULIN LISPRO SLIDING SCALE 100 UNITS/ML VIAL SUBQ PRN (17:18)
--- NOTE | 2020-01-20 19:28 | NUR ---
ENDORSED TO PROFESSIONAL BUILDER IN STABLE CONDITION FOR CONTINUITY OF CARE, FOR DISCHARGE TO [facility], CONTACTED AND REPORT GIVEN TO ELIANA.
--- NOTE | 2020-01-20 19:30 | NUR ---
RECEIVED BEDSIDE REPORT FROM DAY RN FOR CONTINUITY OF CARE. PT A/A/OX2, LAYING IN BED WATCHING TV. DENIES ANY PAIN, CHEST PAIN AND SOB. NO SIGN AND SYMPTOMS OF DISTRESS NOTED. NO COMPLAIN AT THIS TIME. PATIENT IS FOR DC BACK TO [facility]. FALL AND ISOLATION PRECAUTION IMPLEMENTED. CALL LIGHT WITHIN REACH. WILL CONTINUE POC AND MONITORING.
[2020-01-20 20:00] VITALS: BP 144/84
--- NOTE | 2020-01-20 20:40 | NUR ---
PATIENT IS FOR DC BACK TO [facility]. JUDY ELMORE GAVE REPORT TO THE [facility]. DC/D PT IV ON THE RIGHT HAND. APPLIED PRESSURE. NO BLEEDING OR HEMATOMA NOTED. CANNULA INTACT. REPORT ALSO GIVEN TO THE AMBULANCE STAFF REGARDING THE PT. PATIENT LEFT THE UNIT IN STABLE CONDITION A/A/OX2. NO BELONGINGS. VSS UPON DISCHARGE.
== END 2020-01-20 20:30 | DRG 177 ==
LOC: MED 14:37 → MTU 19:37
PROVIDERS: ADMIT Family Medicine; ATTEND Family Medicine
DX: U07.1 COVID-19 (principal); J96.21 Acute and chronic respiratory failure with hypoxia; N17.0 Acute kidney failure with tubular necrosis; N39.0 Urinary tract infection, site not specified; E44.1 Mild protein-calorie malnutrition; Z66 Do not resuscitate; G89.4 Chronic pain syndrome; I10 Essential (primary) hypertension; G40.909 Epilepsy, unspecified, not intractable, without status epilepticus; N40.0 Benign prostatic hyperplasia without lower urinary tract symptoms; Z22.322 Carrier or suspected carrier of Methicillin resistant Staphylococcus aureus; J44.9 Chronic obstructive pulmonary disease, unspecified; F02.80 Dementia in other diseases classified elsewhere, unspecified severity, without behavioral disturbance, psychotic disturbance, mood disturbance, and anxiety; E78.5 Hyperlipidemia, unspecified; E11.40 Type 2 diabetes mellitus with diabetic neuropathy, unspecified; Z68.31 Body mass index [BMI] 31.0-31.9, adult; E87.5 Hyperkalemia; G30.9 Alzheimer's disease, unspecified; Z96.659 Presence of unspecified artificial knee joint
CPT/HCPCS: 36415; 36600; 71045; 80048; 80053; 80202; 81001; 82150; 82728; 82803; 82948; 83036; 83605; 83615; 83690; 83735; 83880; 84100; 84436; 84439; 84443; 84479; 84484; 85025; 85379; 85384; 85610; 85651; 85730; 86140; 86886; 86900; 86901; 87040; 87081; 87086; 87804; 93005; 96361; 96374; 96375; 99285; J0610; J0692; J0696; J1100; J1644; J1815; J2185; J2405; J3370; J7060; U0003

== ENCOUNTER 2020-04-10 16:23 | Inpatient (IN) | payer BC, MEDICARE, SELFPAY ==
[~2020-04-10] VITALS: Ht 180.3 cm; Wt 111.1 kg
[2020-04-10 16:23] VITALS: BP 173/65
[2020-04-10] MEDS ORDERED: NACL 0.9% 1,000 ML IV ONE (16:30)
[2020-04-10] MEDS ORDERED: CLON0.1T15 PO (16:34)
--- NOTE | 2020-04-10 16:45 | NUR ---
79 Y/O MALE DONISNehal [facility] FOR ALOC, PER FACILITY PT WAS GIVEN MEDICATIONS, NORCO WAS GIVEN TO PATIENT, UNKNOWN QUANITY AND UNKNOWN WHAT TIME IT WAS GIVEN. FACILITY DID NOT GIVE REPORT TO EMS, FACILITY FOUND PATIENT ALTERED, LAST SEEN NORMAL AT 1100 THIS MORNING. GCS 3. GAG REFLEX PRESENT. PT IS COOL AND PALE. RECTAL TEMP 93.0. UMBILICAL HERNIA NOTED, SEGURA CATH NOTED. RESP EVEN AND UNLABORED. PT NONAROUSABLE AT THIS TIME. HX COPD, HTN, DM, ALZHEIMERS, CHRONIC PAIN
--- NOTE | 2020-04-10 16:46 | NUR ---
ASIA PIERCE PLACED ON PT AT THIS TIME D/T RECTAL TEMP OF 93.0
[2020-04-10 17:07] LABS: BASOPHILS % (AUTO) 0.4 % (0.0-2.0); EOSINOPHILS % (AUTO) 0.3 % (0.0-4.0); HEMATOCRIT 35.1 % (36-52); HEMOGLOBIN 10.8 g/dL (12.0-18.0); LYMPHOCYTES # (AUTO) 0.6 K/uL (2.0-11.5); LYMPHOCYTES % (AUTO) 5.8 % (20.5-51.1); MEAN CORPUSCULAR HEMOGLOBIN 25 pg (27-31); MEAN CORPUSCULAR HGB CONC 31 g/dL (33-37); MEAN CORPUSCULAR VOLUME 82.1 fL (80-94); MONOCYTES # (AUTO) 0.6 K/uL (0.8-1.0); MONOCYTES % (AUTO) 5.6 % (1.7-9.3); NEUTROPHILS # (AUTO) 8.9 K/uL (1.8-7.7); NEUTROPHILS % (AUTO) 87.9 % (42.2-75.2); PLATELET COUNT (AUTO) 244 K/uL (140-450); RED BLOOD CELL COUNT(AUTO) 4.28 MIL/uL (4.20-6.10); RED CELL DISTRIBUTION WIDTH 16.4 % (11.6-13.7); WHITE BLOOD COUNT (AUTO) 10.2 K/uL (4.8-10.8)
[2020-04-10] MEDS ORDERED: CARV3.12 PO (17:21)
[2020-04-10] MEDS ORDERED: CLON1TAB PO (17:21)
[2020-04-10] MEDS ORDERED: HYDR-4004 PO (17:21)
[2020-04-10] MEDS ORDERED: DULO60EC PO (17:21)
[2020-04-10] MEDS ORDERED: ALEN10TA PO (17:21)
[2020-04-10] MEDS ORDERED: MULT-1328 PO (17:21)
[2020-04-10] MEDS ORDERED: TRAM50TA1 PO (17:21)
[2020-04-10] MEDS ORDERED: QUET25TA PO (17:21)
[2020-04-10] MEDS ORDERED: TRAZ-343 PO (17:21)
[2020-04-10 17:22] LABS: APPEARANCE,URINE CLEAR (CLEAR); BILIRUBIN,URINE NEGATIVE (NEGATIVE); BLOOD, URINE 1+ (NEGATIVE); COLOR,URINE YELLOW (YELLOW); LEUKOCYTE ESTERASE ,URINE 1+ (NEGATIVE); NITRITE, URINE POSITIVE (NEGATIVE); UGLUCOSE NEGATIVE (NEGATIVE)
[2020-04-10 17:24] LABS: PROTHROMBIN TIME 9.7 secs (10.8-13.4)
[2020-04-10] MEDS ORDERED: ACET-2619 PO ×2 (17:24→17:25)
[2020-04-10] MEDS ORDERED: NA P133E RC (17:24)
[2020-04-10] MEDS ORDERED: MIRABULK PO (17:24)
[2020-04-10] MEDS ORDERED: PIPERACILLIN/TAZOBACTAM 3.375 GM in DEXTROSE 5% 50 ML IV ONE (17:25)
--- NOTE | 2020-04-10 17:26 | NUR ---
PT TAKEN TO CT
[2020-04-10] MEDS ORDERED: PIPERACILLIN/TAZOBACTAM 3.375 GM VIAL IV ONE (17:30)
[2020-04-10 17:35] LABS: BARBITURATE, URINE NEGATIVE ng/ml (NEG <=200); BENZODIAZEPINE, URINE POSITIVE ng/mL (NEG <=200); CANNABINOID, URINE NEGATIVE ng/mL (NEG <=50); COCAINE, URINE NEGATIVE ng/mL (NEG <=300); OPIATE, URINE NEGATIVE ng/mL (NEG <=2000); PHENCYCLIDINE SCREEN,URINE NEGATIVE ng/mL (NEG <=25)
[2020-04-10 17:37] LABS: RBC,URINE 11-20 (MOD) /HPF (0-5); WBC,URINE 20-60 /HPF (0-5)
[2020-04-10 17:43] LABS: ANION GAP 9.6 (8-16); ASPARTATE AMINOTRANSFERASE 12 U/L (15-37); CARBON DIOXIDE 30.8 mmol/L (21-32); CHLORIDE 100 mmol/L (98-107); CREATININE 1.5 mg/dL (0.6-1.3); GLUCOSE 210 mg/dL (74-106); POTASSIUM 5.4 mmol/L (3.5-5.1); SODIUM SERUM 135 mmol/L (136-145); TOTAL BILIRUBIN 0.2 mg/dL (0.0-1.0); UREA NITROGEN, BLOOD 27 mg/dL (7-18)
--- NOTE | 2020-04-10 17:50 | NUR ---
SPOKE TO Regalamos FROM [facility] WHO STATES THAT PATIENT WAS LAST MEDICATED AT 0800.
[2020-04-10 18:05] VITALS: BP 128/44
--- NOTE | 2020-04-10 19:20 | NUR ---
REPORT RECEIVED FROM DINO KIM FOR CONTINUITY OF CARE
--- NOTE | 2020-04-10 19:20 | NUR ---
HAYDE SWAB COLLECTED AND SENT TO LAB
[2020-04-10 19:23] VITALS: BP 102/40
[2020-04-10] MEDS ORDERED: ZOLPIDEM 5 MG TAB PO PRN (21:30)
[2020-04-10] MEDS ORDERED: ONDANSETRON 4 MG/2 ML VIAL IM/IVP PRN (21:30)
[2020-04-10] MEDS ORDERED: guaiFENesin DM 200/20 MG-10 ML 10 ML UDC PO PRN (21:30)
[2020-04-10] MEDS ORDERED: HYDROcodone/APAP 7.5/325 MG 1 TAB PO PRN (21:30)
[2020-04-10] MEDS ORDERED: ACETAMINOPHEN 325 MG TAB PO PRN (21:30)
[2020-04-10] MEDS ORDERED: DOCUSATE SODIUM 100 MG GELCAP PO PRN (21:30)
[2020-04-10] MEDS ORDERED: KCL 20 MEQ/WATER INJ PREMIX 200 ML IV PRN (21:30)
--- NOTE | 2020-04-10 21:43 | NUR ---
Patient will be admitted to care of DR. CURTIS. Admited to TELE. Will go to room 106A. Belongings list completed. Report to LARON KIM.
[2020-04-10 21:45] VITALS: BP 148/69
--- NOTE | 2020-04-10 21:45 | NUR ---
PT HAS ARRIVED TO THE UNIT VIA BED WITH RT, TWO ER NURSES, AND TRANSPORTER. PT IS LAYING WITH EYES CLOSED. EYES DO NOT OPEN WITH COMMAND. MINIMAL MOVEMENT ON THE UPPER EXTREMITIES AND MOUTH. PT IS ON BIPAP WITH O2 SAT AT 96%. BREATHING IS UNLABORED. NO RESPIRATORY DISTRESS NOTED. RR IS 24. SB ON TELE MONITORING, HR 55. SEGURA CATHETER IN PLACE PER PREVIOUS FACILITY, 300 OUTPUT OF YELLOW URINE. SKIN IS WARM, DRY, AND INTACT. UMBILICAL HERNIA NOTED, PROTRUDING OUTWARDS. IV IS IN THE LEFT HAND 20 GAUGE WITH D5 NS AT 120 ML PER HOUR NOW RUNNING. VS ARE STABLE. WILL CONTINUE TO MONITOR PT.
[2020-04-10] MEDS: DEXT 5% /NACL 0.9% 1,000 ML IV SCH (21:52)
[2020-04-10 22:05] LABS: CHOL/HDL RATIO 2.1 (1-4.5); FREE T4 (FREE THYROXINE) 0.8 ng/dL (0.76-1.46); PHOSPHORUS 5.8 mg/dL (2.5-4.9); THYROID STIMULATING HORMONE 1.67 uIU/mL (0.34-3.74)
--- NOTE | 2020-04-10 22:37 | NUR ---
CALLED AND SPOKE TO SISTER, LEOPOLDO. INFORMED HER ABOUT THE CONDITION OF THE PT. ANSWERED ALL QUESTIONS. ASKED MULTIPLE QUESTIONS ABOUT PT'S HISTORY AND RESPONSES WERE GIVEN.
--- NOTE | 2020-04-10 23:46 | NUR ---
PT IS CURRENTLY COUGHING, NON PRODUCTIVE. HOB WAS ELEVATED TO A 75 DEGREE ANGLE. BIPAP IN PLACE WITH O2 SAT AT 98%. NO RESPIRATORY DISTRESS NOTED. PT IS MOVING FEET BILATERALLY IN A CIRCULAR MOTION AND MOVING HANDS BILATERALLY. PT IS APHASIC, DOES NOT RESPOND TO COMMANDS. WILL CONTINUE TO MONITOR.
[2020-04-11] VITALS: BP 135/80
[2020-04-11] MEDS ORDERED: PIPERACILLIN/TAZOBACTAM 3.375 GM VIAL IV ONE (01:17)
--- NOTE | 2020-04-11 01:30 | NUR ---
ROUNDED ON PT. HE IS NOT IN ANY DISTRESS. BIPAP AT 60% FIO2 WITH O2 SAT OF 100%. RR 24. BED IS IN THE LOWEST POSITION, CALL LIGHT WITHIN REACH. IV IS PATENT AND INFUSING. PT WAS CHANGED AND REPOSITIONED. PT HAS NOT HAD A BM. PILLOWS WERE USED TO ELEVATE EXTREMITIES. PT IS STABLE.
[2020-04-11] MEDS: PIPERACILLIN/TAZOBACTAM 3.375 GM in DEXTROSE 5% 50 ML IV SCH ×3 (02:04→16:38)
--- NOTE | 2020-04-11 03:03 | NUR ---
TEXTED DR. CURTIS TO ASK HIM ABOUT THE CODE STATUS OF THE PT. INFORMED HIM THAT THE PT'S CODE STATUS ORDER STATED FULL CODE, BUT THE POLST ORDER STATED DNR. DR. CURTIS INFORMED ME THAT THE PT'S SISTER WANTED THE PT TO BE A FULL CODE DESPITE WHAT WAS ON THE POLST. DR. CURTIS STATED TO NOT CHANGE THE CODE STATUS ORDER. PT IS FULL CODE.
--- NOTE | 2020-04-11 03:30 | NUR ---
PT IS LAYING WITH EYES CLOSED. DOES NOT OPEN ON COMMAND. PT HAS MINIMAL MOVEMENT, WITHDRAWING TO PAIN. MOVES LEGS AND ARMS ON OCCASION. NO COUGH OR SOB. ON BIPAP 60% FIO2. BREATHING IS UNLABORED. O2 SAT IS 100%. SB ON TELE MONITORING, HR 55. NO DISTRESS NOTED.
[2020-04-11 04:00] VITALS: BP 102/52
[2020-04-11] MEDS: DEXT 5% /NACL 0.9% 1,000 ML IV SCH ×3 (04:57→21:45)
--- NOTE | 2020-04-11 05:15 | NUR ---
PT OPENS EYES WITH LIGHT SHAKING. APPLIANCE COUNSELOR AT BEDSIDE TO DRAW LABS. APPLIANCE COUNSELOR ASKED IF HE COULD DRAW LABS AND THE PT SAID "OKAY." I ASKED PT TO STATE HIS NAME AND HE RESPONDED "DELIA" IN A GARBLED VOICE. ASKED PT WHERE HE WAS LOCATED AND HE WAS UNABLE TO RESPOND. PT QUICKLY FALLS BACK ASLEEP WITH OUT STIMULATION. NO DISTRESS NOTED. ON BIPAP, O2 SAT IS 100%. NO RESPIRATORY DISTRESS NOTED.
[2020-04-11] MEDS: LEVOTHYROXINE 0.05 MG TAB PO SCH (05:52)
--- NOTE | 2020-04-11 05:52 | NUR ---
DID NOT ADMINISTER SYNTHROID ORDERED DUE TO PT BEING DROWSY. PT AWAKENS WITH LIGHT SHAKING, OPENS EYES, THEN FALLS ASLEEP QUICKLY. PT IS UNABLE TO SWALLOW A PILL AT THIS TIME. WILL CONTINUE TO REASSESS NEUROLOGICAL STATUS.
[2020-04-11 06:42] LABS: BASOPHILS % (AUTO) 0.3 % (0.0-2.0); EOSINOPHILS % (AUTO) 0.3 % (0.0-4.0); HEMATOCRIT 30.6 % (36-52); HEMOGLOBIN 9.6 g/dL (12.0-18.0); LYMPHOCYTES % (AUTO) 14.3 % (20.5-51.1); MEAN CORPUSCULAR HEMOGLOBIN 26 pg (27-31); MEAN CORPUSCULAR HGB CONC 31 g/dL (33-37); MEAN CORPUSCULAR VOLUME 82.3 fL (80-94); MONOCYTES # (AUTO) 0.6 K/uL (0.8-1.0); MONOCYTES % (AUTO) 8.5 % (1.7-9.3); NEUTROPHILS # (AUTO) 5.3 K/uL (1.8-7.7); NEUTROPHILS % (AUTO) 76.6 % (42.2-75.2); PLATELET COUNT (AUTO) 199 K/uL (140-450); RED BLOOD CELL COUNT(AUTO) 3.72 MIL/uL (4.20-6.10); RED CELL DISTRIBUTION WIDTH 15.8 % (11.6-13.7); WHITE BLOOD COUNT (AUTO) 6.9 K/uL (4.8-10.8)
[2020-04-11 07:06] LABS: CHLORIDE 103 mmol/L (98-107); CREATININE 1.6 mg/dL (0.6-1.3); GLUCOSE 110 mg/dL (74-106); SODIUM SERUM 137 mmol/L (136-145); UREA NITROGEN, BLOOD 27 mg/dL (7-18)
--- NOTE | 2020-04-11 07:20 | NUR ---
ENDORSED PT TO DAY SHIFT NURSE FOR CONTINUITY OF CARE. PT IS STABLE AT THIS TIME. BIPAP IN PLACE WITH O2 SAT AT 100%. PLAN OF CARE DISCUSSED.
--- NOTE | 2020-04-11 07:22 | NUR ---
RECEIVED REPORT FROM NIGHT NURSE PT IS SLEEPING ON BIPAP FIO2 60% RATE 24 EPAP 6 TV 500 OXYGEN SATURATION 85-100%, SKIN INTACT SINUS BRADYCARDIA AND NPO EXCEPTS MEDS, WITH SEGURA CATHETER, IV INTACT ON LEFT HAND, BED BOUND, EYE OPENING WHEN PT IS BEING SHAKEN AND WAKES UP WITH PAIN STIMULATION,CT HEAD NEGATIVE, CHEST XRAY WITH SMALL BILATERAL EFFUSION, CHF. SAFETY MEASURES IN PLACE AND CALL LIGHT WITHIN REACH. WILL CONTINUE TO MONITOR.
[2020-04-11 08:00] VITALS: BP 137/59
--- NOTE | 2020-04-11 08:31 | NUR ---
PATIENT HAS BEEN SCREENED AND CATEGORIZED MODERATE NUTRITION RISK. PATIENT WILL BE SEEN WITHIN 3-5 DAYS OF ADMISSION. 04/13/20 04/15/[address]
[2020-04-11] MEDS: INSULIN LANTUS 100 UNITS/ML 10 ML VIAL SUBQ SCH (09:00)
[2020-04-11] MEDS ORDERED: NON-FORMULARY ITEM (Levetiracetam* (Keppra Xr*) 500 MG) PO SCH (09:00)
[2020-04-11] MEDS: carvediloL 3.125 MG TAB PO SCH ×2 (09:00→21:00)
[2020-04-11] MEDS: PANTOPRAZOLE 40 MG INJ VIAL IVP SCH (09:03)
--- NOTE | 2020-04-11 09:03 | NUR ---
MEDICATION DUE GIVEN CHECK VITAL SIGNS TAKEN PRIOR TO MEDICATION BP 137/59 MN 54. BLOOD SUGAR 87 MG/DL. CARVEDILOL 3.125 MG ON HOLD AND INSULIN LANTHUS 8 UNITS ON HOLD PT BLOOD SUGAR 87 MG/DL AND PT IS ON NPO.
[2020-04-11] MEDS: amLODIPine 5 MG TAB PO SCH (09:04)
[2020-04-11] MEDS: hydroCHLOROthiazide 25 MG TAB PO SCH (09:05)
[2020-04-11] MEDS: FERROUS SULFATE 325 MG TABEC PO SCH ×2 (09:05→21:44)
--- NOTE | 2020-04-11 09:43 | NUR ---
RECEIVED CRITICAL VALUE POTASSIUM [address] CURTIS AWARE AND RECEIVED ORDER TO GIVE LOKELMA 1 DOSE.
[2020-04-11] MEDS ORDERED: SODIUM ZIRCONIUM CYCLOSILICATE 10 GM POWD.PACK PO SCH (10:00)
--- NOTE | 2020-04-11 10:00 | NUR ---
LOKELMA X1 DOSE GIVEN PER DOCTOR ORDER PT TOLERATED WELL.
[2020-04-11 12:00] VITALS: BP 121/66
--- NOTE | 2020-04-11 12:00 | NUR ---
MADE ROUNDS VITAL SIGNS TAKEN BP 121/66 OR 56 PATIENT SINUS BRADYCARDIA ON MONITOR AND ON BIPAP AT FIO2 60 RATE 24 EPAP 6 TV 500. PT IS STABLE AND SLEEPING.
--- NOTE | 2020-04-11 13:57 | NUR ---
SOCIAL WORK NOTE: Patient's Orientation Unable To Assess Information Provided By KEITH - ASSOCIATE MANAGER AFFILIATE MARKETING OF [facility] Comments SW WAS UNABLE TO MEET PATIENT AT BEDSIDE. SW CONTACTED SISTER AND LEFT VM. SW CONTACTED [facility] TO COMPLETE ASSESSMENT. PER KEITH, PATIENT IS SELF-RESPONSIBLE WITH MEDICAL DECISIONS. Gear Hobber Operator, Realtionship and Phone Number LEOPOLDO TAYLOR [phone] Healthcare Power of Back Grinder No Does Patient Have a POLST No Identifying Problems No Social Work Triggers Is A Social Work Consult Needed No Mandate Report Filed No Explanation Of Identifying Problems PATIENT IS AN 79-YEAR-OLD MALE ADMITTED FOR ALOC. PATIENT HAS PMHX OF HYPERTENSION, DIABETES, AND ALZHEIMER'S. PATIENT WAS ADMITTED FROM [facility]. Admitted From Assisted Living/Resident Home Health Provider [facility] Pre-Admission Level Of Functioning Status Total Care Level Of Functioning Comment PER [facility] STAFF, PATIENT REQUIRES TOTAL ASSISTANCE. Prior Resources/Services Used In Last 12 Months Assisted Living Home Health Care Prior DME Home Oxygen Wheelchair Dialysis Comments N/A Living Situation Asst'd Living/Board &Care Patient Had Caregiver No Home Support No Caregiver Issues Financial Issues No Known Financial Issue Referral To The Financial Counselor Needed No Factors/Needs No D/C Needs Identified Pt/Rep Participated In Discharge Plan Yes Patient/Family Agress With Discharge Plan Yes Discharge Plan Comments TENTATIVE DISCHARGE PLAN IS FOR PATIENT TO RETURN TO [facility]. DC Plan Status Initiated
[2020-04-11 16:00] VITALS: BP 107/62
--- NOTE | 2020-04-11 16:32 | NUR ---
DC PLANNIN YRS OLD PT WAS ADMITTED FROM [facility] WITH A DX OF ALOC AND HYPERCAPNIA, . RECEIVED A MESSAGE FROM YURIDIA BLACK AT [facility] REQUESTING CLINICALS TO BE FAXED WITH THE # [phone]. ALL CLINICALS FAXED TO [phone] . RECEIVED A CALL FROM JERRI RAMOS STATED PT WAS GOING TO SIGN HOSPICE WITH [facility] # [phone] PRIOR TO ADMIN IN THE HOSPITAL. CM TO FOLLOW Addendum: 04/12/20 at 1440 by Marina Blevins RN DC PLANNING CALLED [facility] [phone] SPOKE WITH WAYNE SHI STATED SHE RECEIVED MY MESSAGE AND CLINICALS YESTERDAY AND APPROVE THE STAY FOR 3 AND 3 AUTH NUMBER # [id number] . I MENTIONED THAT PT IS STABLE FOR TRANSFER TO THE CONTRACTED FACILITY. PER YURIDIA WORKING ON IT, PROVIDE HOUSE SUP NUMBER IF IT HAPPENS AFTER HOUR. CM TO FOLLOW Addendum: 04/12/20 at 1627 by Marina Blevins RN DC PLANNING WE HAD A MEETING WITH PATIENT, CM , PT'S PCP DR GERA CAMPOS ([employer]D [employer] DRIVER), PT'S SISTER LEOPOLDO VALENTIN, CLARIFIED THE CODE STATUS, PT SISTER ASKED HER BROTHER AND CLARIFIED DETAIL DISCUSSION WITH THE TREATMENT. PATIENT AND SISTER AGREED,DNR WITH SELECTIVE TREATMENT WHICH IS NO INTUBATION, BIPAP AND IV ABX IS OK. THE POLST SIGNED BY PT SISTER LEOPOLDO AND DR GERA RAMOS. NOTIFIED DR CURTIS AND CODE STATUS ORDER CHANGED TO DNR WITH SELECTIVE TREATMENT . PLACED THE COPY IN THE CHART. CM TO FOLLOW
--- NOTE | 2020-04-11 17:00 | NUR ---
PATIENT PRIMARY DOCTOR DR BOSS OF [facility] CALLED AND INFORMED ME THAT HE WILL BE COMING OVER TOMORROW AT 1500 WITH THE SISTER LEOPOLDO TO DISCUSS THE POLST OF THE PATIENT. DR CURTIS AWARE.
--- NOTE | 2020-04-11 18:15 | NUR ---
SWALLOW EVAL DONE ON THE PATIENT AND ABLE TO SWALLOW NO DIFFICULTY AND SPEECH THERAPY RECOMENDED PUREE DIET AND THIN LIQUIDS.
--- NOTE | 2020-04-11 18:26 | NUR ---
PT WAS SEEN FOR DYSPHAGIA. PT WAS ABLE TO SAFELY SWALLOW PUREE DIET WITH THIN LIQUID. HOWEVER, PT HAS TO BE SUPERVISED DURING MEAL TIME DUE TO HIS POOR ALERTNESS LEVEL. RECOMMENDATION PUREE DIET WITH THIN LIQUID
--- NOTE | 2020-04-11 18:44 | NUR ---
DR CURTIS AWARE OF THE PATIENT RECOMMENDED DIET AND AGREED TO THE DIET.
--- NOTE | 2020-04-11 19:35 | NUR ---
ENDORSED TO NIGHT NURSE FOR CONTINUITY OF CARE. PT IS STABLE.
--- NOTE | 2020-04-11 19:36 | NUR ---
RECEIVING PATIENT FROM AM NURSE FOR CONTINUITY OF CARE. PATIENT IS ON TELE MONITOR. A/A/O X2-3. RESPIRATORY IS EVEN AND UNLABORED, ON BI-PAP, O2 SAT 96%. SKIN WARM, DRY, INTACT, NON-DIAPHORETIC. IV INTACT AND PATENT ON LEFT HAND 20G, IS INFUSING D5NS 120ML/HR. PLAN OF CARE DISCUSSED. PRECAUTION IN PLACE. CALL LIGHT WITHIN REACH. WILL CONTINUE TO MONITOR.
[2020-04-11 20:00] VITALS: BP 132/66
[2020-04-11] MEDS: levETIRAcetam 500 MG TAB PO SCH (21:43)
[2020-04-11] MEDS: TAMSULOSIN 0.4 MG CAP PO SCH (21:44)
[2020-04-11] MEDS: ATORVASTATIN 20 MG TAB PO SCH (21:44)
[2020-04-12] VITALS: BP 120/77
--- NOTE | 2020-04-12 01:30 | NUR ---
PLACED PT ON VAPOTHERM HIGH-FLOW NASAL CANNULA, DUE TO PT NOT TOLERATING BI-PAP WELL. PT HAD ATTEMPTED TO REMOVE BI-PAP MULTIPLE TIMES. PLACED PT ON HFNC SETTINGS OF 40 LPM, 60% FiO2, AND TEMP. 37 C, HFNC IS PLUGGED INTO RED OUTLET AND THE WATER BAG IS FULL, MONITORED PT FOR COMFORT, PT IS MORE COMFORTABLE AND SATURATIONS MAINTAIN ABOVE 92%. WILL CONTINUE TO MONITOR
--- NOTE | 2020-04-12 01:34 | NUR ---
RT AT BEDSIDE. O2 SAT 100% ON BI-PAP. RT PUTTING PATIENT ON HIGH FLOW 40L NC, PATIENT TOLERATED WELL, O2 SAT 98%, RESPIRATORY RATE 20. NO RESPIRATORY DISTRESS NOTED. PATIENT APPEAR MORE COMFORTABLE. CALL LIGHT WITHIN REACH. PATIENT RE-POSITION. WILL CONTINUE TO MONITOR.
[2020-04-12] MEDS: PIPERACILLIN/TAZOBACTAM 3.375 GM in DEXTROSE 5% 50 ML IV SCH ×3 (01:42→17:13)
--- NOTE | 2020-04-12 03:30 | NUR ---
ROUND CHECK. PATIENT IS RESTING IN BED, NO SIGN OF RESPIRATORY DISTRESS NOTED. ON HIGH FLOW O2 40L NC, O2 SAT 98%. SEGURA BAG WAS EMPTIED, YELLOW CLEAR URINE, 1300ML TOTAL. PATIENT WAS RE-POSITION, PILLOWS USE TO SUPPORT EXTREMITIES. CALL LIGHT WITHIN REACH. WILL CONTINUE TO MONITOR.
[2020-04-12 04:00] VITALS: BP 135/64
[2020-04-12] MEDS: LEVOTHYROXINE 0.05 MG TAB PO SCH (05:35)
--- NOTE | 2020-04-12 05:35 | NUR ---
PATIENT GIVEN MEDICATION ORDERED. PATIENT IS ON HIGH FLOW NC 40L, O2 SAT 98%, NO SIGN OF RESPIRATORY DISTRESS NOTED. PATIENT TOLERATED WELL. RE-POSITION WITH PILLOWS SUPPORT EXTREMITIES. CALL LIGHT WITHIN REACH. WILL CONTINUE TO MONITOR.
[2020-04-12 06:29] LABS: BASOPHILS % (AUTO) 0.7 % (0.0-2.0); EOSINOPHILS # (AUTO) 0.2 K/uL (0-0.4); EOSINOPHILS % (AUTO) 2.3 % (0.0-4.0); HEMATOCRIT 31.3 % (36-52); HEMOGLOBIN 9.7 g/dL (12.0-18.0); LYMPHOCYTES # (AUTO) 0.8 K/uL (2.0-11.5); LYMPHOCYTES % (AUTO) 11.4 % (20.5-51.1); MEAN CORPUSCULAR HEMOGLOBIN 26 pg (27-31); MEAN CORPUSCULAR HGB CONC 31 g/dL (33-37); MEAN CORPUSCULAR VOLUME 82.5 fL (80-94); MONOCYTES # (AUTO) 0.6 K/uL (0.8-1.0); MONOCYTES % (AUTO) 8.7 % (1.7-9.3); NEUTROPHILS # (AUTO) 5.6 K/uL (1.8-7.7); NEUTROPHILS % (AUTO) 76.9 % (42.2-75.2); PLATELET COUNT (AUTO) 171 K/uL (140-450); RED BLOOD CELL COUNT(AUTO) 3.79 MIL/uL (4.20-6.10); RED CELL DISTRIBUTION WIDTH 16.2 % (11.6-13.7); WHITE BLOOD COUNT (AUTO) 7.2 K/uL (4.8-10.8)
[2020-04-12 06:46] LABS: ANION GAP 7.8 (8-16); CARBON DIOXIDE 33.1 mmol/L (21-32); CHLORIDE 106 mmol/L (98-107); CREATININE 1.6 mg/dL (0.6-1.3); GLUCOSE 118 mg/dL (74-106); POTASSIUM 4.9 mmol/L (3.5-5.1); SODIUM SERUM 142 mmol/L (136-145); UREA NITROGEN, BLOOD 20 mg/dL (7-18)
--- NOTE | 2020-04-12 07:10 | NUR ---
ENDORSED PATIENT TO DAY SHIFT NURSE FOR CONTINUITY OF CARE. PATIENT IS ON HIGH FLOW NC 40L, O2 SAT 97%. NO SIGN OF RESPIRATORY DISTRESS NOTED. PLAN OF CARE DISCUSSED.
[2020-04-12] MEDS: DEXT 5% /NACL 0.9% 1,000 ML IV SCH ×3 (07:11→23:30)
--- NOTE | 2020-04-12 07:11 | NUR ---
RECEIVED ENDORSEMENT FROM RESUME WRITER RN. PT IS STABLE AT THIS TIME. SPO2 97%. PLAN OF CARE DISCUSSED AND WILL CONTINUE.
[2020-04-12 08:00] VITALS: BP 149/73
[2020-04-12 08:08] LABS: T4 (THYROXINE) 4.7 ug/dL (4.5-12.0)
[2020-04-12] MEDS: FUROSEMIDE 40 MG/4 ML VIAL IVP SCH (09:00)
[2020-04-12] MEDS: INSULIN LANTUS 100 UNITS/ML 10 ML VIAL SUBQ SCH (09:00)
[2020-04-12] MEDS: hydroCHLOROthiazide 25 MG TAB PO SCH (09:00)
--- NOTE | 2020-04-12 09:15 | NUR ---
SCHEDULED MEDICATION GIVEN TOLERATED WELL, HYDROCHLOROTHIAZIDE HELD DUE TO TOO MANY BP MEDICATION. LANTUS HELD DUE TO NO ACCU CHECKS WILL NOTIFY MD TO ORDER. PT HAS IV ACCESS TO LEFT HAND THAT IS INTACT AND PATENT RECEIVING IVF WITH NO ISSUES PT IS AWAKE AND ALERT ORIENTED X 2/3 TO PERSON AND SITUATION. PT WAS REORIENTED ABLE TO COMMUNICATE WANTS AND NEEDS. RECEIVED CALL FROM LAB REGARDING +[facility]SA RESULTS WILL NOTIFY DR. CURTIS. PROVISION OF CARE PROVIDED. ALL NEEDS MET AT THIS TIME.
[2020-04-12] MEDS: PANTOPRAZOLE 40 MG INJ VIAL IVP SCH (09:58)
[2020-04-12] MEDS: FERROUS SULFATE 325 MG TABEC PO SCH ×2 (09:59→21:20)
[2020-04-12] MEDS: levETIRAcetam 500 MG TAB PO SCH ×2 (09:59→21:22)
[2020-04-12] MEDS: carvediloL 3.125 MG TAB PO SCH ×2 (10:00→21:21)
[2020-04-12] MEDS: amLODIPine 5 MG TAB PO SCH (10:07)
--- NOTE | 2020-04-12 10:38 | NUR ---
SATURATION 99% ON FIO2 OF 60% FLOW 40 LPM TITRATED FIO2 TO 50% FLOW 30 LPM MANUELITO/JUDY NOTIFIED
--- NOTE | 2020-04-12 10:38 | NUR ---
LOC AWAKE AND ALERT VERBALLY RESPONSIVE GOOD CHEST RISE SATURATION 99% ON VAPOTHERM HIGH NASAL CANULA 40 LPM 60% T 37.0 C TITRATED FIO2 TO 50% REDUCED FLOW TO 30 LPM INSTRUCTOR BUSINESS EDUCATION TO MONITOR
--- NOTE | 2020-04-12 10:40 | NUR ---
PT ENDORSED TO AM RN FOR CONTINUITY OF CARE. PT IS STABLE REMAINS ON HI FLOW 40L WITH SPO2 97% DR. CURTIS NOTIFIED OF MRSA STATUS AND MRSA TREATED ORDERED. AM RN TO F/U
[2020-04-12] MEDS: CHLORHEXADINE GLUC 2% CLOTH TP SCH (11:00)
--- NOTE | 2020-04-12 11:04 | NUR ---
SOCIAL WORK NOTE: IZZY CONTACTED PATIENT'S SISTER, LEOPOLDO [phone] TO DISCUSS POLST. IZZY PROVIDED EDUCATION ON POLST AND INFORMED HER OF THE CONTENT OF PATIENT'S WISHES. IZZY INFORMED LEOPOLDO THAT DUE TO THE POLST BEING SIGNED BY PATIENT, THE POLST WOULD NEED TO BE HONORED A LEGAL DOCUMENT. LEOPOLDO REQUESTED TO SPEAK WITH DR. CURTIS REGARDING PROGNOSIS OF PATIENT. IZZY CONTACTED DR. CURTIS AND PROVIDED CONTACT INFORMATION TO LEOPOLDO. PER DR. CURTIS, HE IS UNAVAILABLE TO MEET BUT WILL CALL LEOPOLDO FOR PATIENT'S CONDITION UPDATES. IZZY INFORMED LEOPOLDO THAT DR. CURTIS IS UNAVAILABLE FOR MEETING. LEOPOLDO WAS AGREEABLE TO PHONE CALL. IZZY INFORMED DR. CURTIS THAT CODE STATUS MUST BE CHANGED BACK TO DNR TO HONOR POLST. IZZY WILL REMAIN AVAILABLE IF FURTHER ISSUES ARISE.
[2020-04-12] MEDS: CALCIUM ACETATE 667 MG TAB PO SCH ×2 (12:32→17:13)
[2020-04-12] MEDS: MUPIROCIN CA NASAL 2% 1GM TUBE NS SCH (12:32)
--- NOTE | 2020-04-12 17:44 | NUR ---
SATURATION 97% ON FIO2 OF 50% TITRATED FIO2 TO 40% FLOW 30 LPM MANUELITO/RN NOTIFIED
[2020-04-12] MEDS ORDERED: LORazepam 2 MG/ML VIAL ONE (18:03)
[2020-04-12] MEDS: LORazepam 2 MG/ML VIAL IVP PRN ×2 (18:06→22:38)
--- NOTE | 2020-04-12 18:21 | NUR ---
PT EXTREMELY AGITATED, RESTLESS ADMINISTERED ATIVAN PER MD ORDER
--- NOTE | 2020-04-12 19:43 | NUR ---
RECEIVED TRANSFER OF CARE REPORT FROM AM RN FOR CONTINUATION OF CARE.
--- NOTE | 2020-04-12 19:44 | NUR ---
PT FOUND AWAKE BEING ASSISTED BY BOOK SOLICITOR. PT HAS VISIBLE EQUAL RISE AND FALL UPON RESPIRATION. PT DISPLAYED AGITATION. BED LOCKED IN LOWEST POSITION WITH 2 SIDE RAILS UP FOR SAFETY AND CALL LIGHT WITHIN REACH. WILL CONTINUE TO MONITOR.
[2020-04-12 20:00] VITALS: BP 180/71
[2020-04-12] MEDS ORDERED: levETIRAcetam 100 MG/ML ORASYR ONE (21:09)
[2020-04-12] MEDS: ATORVASTATIN 20 MG TAB PO SCH (21:20)
[2020-04-12] MEDS: TAMSULOSIN 0.4 MG CAP PO SCH (21:20)
--- NOTE | 2020-04-12 22:52 | NUR ---
PATIENT CONTINUES TO BE AGITATED. FREQUENT VISUAL ROUNDS BY ALL STAFF. MEDICATED ORDERED. NEW ORDER FOR RESTRAINTS NOTED AND CARRIED OUT. PATIENT IS SAFELY IN BED. NO INJURY NOTED. ADEQUATE CIRCULATION TO BOTH UPPER EXTREMITIES.
--- NOTE | 2020-04-12 23:00 | NUR ---
PATIENT RESTING COMFORTABLY IN BED. BSWR IN PLACE. NO INJURY TO PATIENT. NO S/S ACUTE DISTRESS. NO S/S RESPIRATORY DISTRESS. CALL LIGHT WITHIN REACH. FREQUENT ROUNDS BY ALL STAFF.
[2020-04-13] VITALS: BP 169/73
[2020-04-13] MEDS: PIPERACILLIN/TAZOBACTAM 3.375 GM in DEXTROSE 5% 50 ML IV SCH ×3 (00:35→16:43)
--- NOTE | 2020-04-13 01:00 | NUR ---
MADE ROUNDS. PATIENT IS ASLEEP. NO S/S ACUTE DISTRESS. NO S/S RESPIRATORY DISTRESS. CALL LIGHT WITHIN REACH. FREQUENT ROUNDS BY ALL STAFF.
--- NOTE | 2020-04-13 03:00 | NUR ---
PATIENT TURNED AND REPOSITIONED. NO S/S ACUTE DISTRESS. NO S/S RESPIRATORY DISTRESS. CALL LIGHT WITHIN REACH. FREQUENT ROUNDS BY ALL STAFF.
[2020-04-13 04:00] VITALS: BP 130/51
[2020-04-13] MEDS: LEVOTHYROXINE 0.05 MG TAB PO SCH (05:38)
--- NOTE | 2020-04-13 05:53 | NUR ---
PATIENT RESTING COMFORTABLY IN BED. NO S/S ACUTE DISTRESS. CONTINUES ON HI TABATHA, O2SAT 94%. NO S/S RESPIRATORY DISTRESS. CALL LIGHT WITHIN REACH. FREQUENT ROUNDS BY ALL STAFF.
[2020-04-13 07:15] LABS: BASOPHILS % (AUTO) 0.7 % (0.0-2.0); EOSINOPHILS # (AUTO) 0.2 K/uL (0-0.4); EOSINOPHILS % (AUTO) 2.2 % (0.0-4.0); HEMATOCRIT 31.2 % (36-52); HEMOGLOBIN 9.7 g/dL (12.0-18.0); LYMPHOCYTES # (AUTO) 0.9 K/uL (2.0-11.5); LYMPHOCYTES % (AUTO) 12.2 % (20.5-51.1); MEAN CORPUSCULAR HEMOGLOBIN 25 pg (27-31); MEAN CORPUSCULAR HGB CONC 31 g/dL (33-37); MONOCYTES # (AUTO) 0.6 K/uL (0.8-1.0); MONOCYTES % (AUTO) 8.3 % (1.7-9.3); NEUTROPHILS # (AUTO) 5.4 K/uL (1.8-7.7); NEUTROPHILS % (AUTO) 76.6 % (42.2-75.2); PLATELET COUNT (AUTO) 172 K/uL (140-450); RED BLOOD CELL COUNT(AUTO) 3.81 MIL/uL (4.20-6.10); RED CELL DISTRIBUTION WIDTH 16.1 % (11.6-13.7)
--- NOTE | 2020-04-13 07:15 | NUR ---
ENDORSED PATIENT TO AM SHIFT NURSE FOR CONTINUITY OF CARE.
--- NOTE | 2020-04-13 07:16 | NUR ---
RECEIVED ENDORSEMENT FROM HEAT TRANSFER TECHNICIAN NURSE FOR CONTINUATION OF CARE. PATIENT IN BED AOX2. ON HIGHFLOW 30L, 40FIO2. ON PUREE DIET. PATIENT IV SITE IS IN PLACE AND INTACT. SAFETY MEASURES ARE IN PLACE. CALL LIGHT WITHIN REACH, WILL CONTINUE TO MONITOR NEEDED.
[2020-04-13 07:23] LABS: ANION GAP 6.8 (8-16); CARBON DIOXIDE 33.9 mmol/L (21-32); CHLORIDE 106 mmol/L (98-107); CREATININE 1.6 mg/dL (0.6-1.3); GLUCOSE 126 mg/dL (74-106); POTASSIUM 4.7 mmol/L (3.5-5.1); SODIUM SERUM 142 mmol/L (136-145); UREA NITROGEN, BLOOD 17 mg/dL (7-18)
[2020-04-13] MEDS: DEXT 5% /NACL 0.9% 1,000 ML IV SCH ×2 (07:50→22:57)
[2020-04-13 08:00] VITALS: BP 196/66
[2020-04-13] MEDS: CALCIUM ACETATE 667 MG TAB PO SCH ×3 (08:00→16:43)
[2020-04-13] MEDS: INSULIN LANTUS 100 UNITS/ML 10 ML VIAL SUBQ SCH (09:00)
--- NOTE | 2020-04-13 09:20 | NUR ---
SCHEDULED MEDICATIONS GIVEN. PATIENT IS STABLE IN BED. WILL CONTINUE TO MONITOR NEEDED.
[2020-04-13] MEDS: levETIRAcetam 100 MG/ML ORASYR PO SCH ×2 (09:42→21:28)
[2020-04-13] MEDS: hydroCHLOROthiazide 25 MG TAB PO SCH (09:42)
[2020-04-13] MEDS: amLODIPine 5 MG TAB PO SCH (09:44)
[2020-04-13] MEDS: PANTOPRAZOLE 40 MG INJ VIAL IVP SCH (09:45)
[2020-04-13] MEDS: FUROSEMIDE 40 MG/4 ML VIAL IVP SCH (09:45)
[2020-04-13] MEDS: FERROUS SULFATE 325 MG TABEC PO SCH ×2 (09:46→21:28)
[2020-04-13] MEDS: carvediloL 3.125 MG TAB PO SCH ×2 (09:46→21:28)
[2020-04-13] MEDS: CHLORHEXADINE GLUC 2% CLOTH TP SCH (10:50)
[2020-04-13] MEDS: MUPIROCIN CA NASAL 2% 1GM TUBE NS SCH (10:51)
--- NOTE | 2020-04-13 10:55 | NUR ---
SCHEDULED MEDICATION GIVEN. PATIENT IS STABLE.
[2020-04-13 12:00] VITALS: BP 139/89
--- NOTE | 2020-04-13 12:32 | NUR ---
SCHEDULED MEDICATION GIVEN. PATIENT IN BED STABLE. WILL CONTINUE TO MONITOR NEEDED.
--- NOTE | 2020-04-13 14:31 | NUR ---
MADE ROUNDS. PATIENT IN BED AWAKE. PATIENT HAS BEEN YELLING AND SCREAMING. TRYING TO REMOVE HIS HIGH FLOW O2. GAVE ATIVAN PRN. WILL CONTINUE TO MONITOR NEEDED.
[2020-04-13] MEDS: LORazepam 2 MG/ML VIAL IVP PRN (14:34)
[2020-04-13 16:00] VITALS: BP 138/87
--- NOTE | 2020-04-13 16:39 | NUR ---
PAGED DR. MICHAEL DUFFY [phone] TO REVIEW [facility] SAMPLE REPORT RETURN NUMBER [phone]
--- NOTE | 2020-04-13 16:40 | NUR ---
CALL BACK FROM DR. MICHAEL DUFFY REVIEWED [facility] SAMPLE REPORT STATES "OK THAT'S FINE" NO NEW ORDERS
--- NOTE | 2020-04-13 19:00 | NUR ---
PATIENT RECEIVED IN BED ALERT AND ORIENTED X 1. ON BIPAP FIO2 60% RATE 24 ECAP 6 TV 500 OXYGEN SATURATION 85-100%, SKIN INTACT SINUS BRADYCARDIA AND NPO EXCEPTS MEDS, WITH SEGURA CATHETER, IV INTACT ON LEFT HAND, BED BOUND, EYE OPENING WHEN PT IS BEING SHAKEN AND WAKES UP WITH PAIN STIMULATION,CT HEAD NEGATIVE, CHEST XRAY WITH SMALL BILATERAL EFFUSION, CHF. SAFETY MEASURES IN PLACE AND CALL LIGHT WITHIN REACH. WILL CONTINUE TO MONITOR. FALL AND SAFETY PRECAUTIONARY MEASURES MAINTAINED. MAXIMAL CARE RENDERED. RN CONTINUE WITH MEDICAL PLAN OF CARE.
--- NOTE | 2020-04-13 19:40 | NUR ---
ENDORSED TO GRAFFITI CLEANER NURSE FOR CONTINUATION OF CARE. PT IS STABLE
[2020-04-13 20:00] VITALS: BP 136/72
[2020-04-13] MEDS: TAMSULOSIN 0.4 MG CAP PO SCH (21:28)
[2020-04-13] MEDS: ATORVASTATIN 20 MG TAB PO SCH (21:28)
[2020-04-14] VITALS (8 sets, daily range): BP systolic 128–208; BP diastolic 72–98
[2020-04-14] MEDS: PIPERACILLIN/TAZOBACTAM 3.375 GM in DEXTROSE 5% 50 ML IV SCH ×2 (01:03→09:12)
[2020-04-14] MEDS: LORazepam 2 MG/ML VIAL IVP PRN ×2 (02:32→15:03)
[2020-04-14] MEDS: LEVOTHYROXINE 0.05 MG TAB PO SCH (06:33)
--- NOTE | 2020-04-14 07:28 | NUR ---
RECEIVED ENDORSEMENT FROM ANALYTICS LEAD NURSE. PATIENT IN BED STABLE. SAFETY MEASURES ARE IN PLACE. CALL LIGHT WITHIN REACH. WILL CONTINUE TO MONITOR NEEDED.
[2020-04-14 07:34] LABS: BASOPHILS % (AUTO) 0.6 % (0.0-2.0); EOSINOPHILS # (AUTO) 0.2 K/uL (0-0.4); EOSINOPHILS % (AUTO) 1.9 % (0.0-4.0); HEMATOCRIT 30.8 % (36-52); HEMOGLOBIN 9.7 g/dL (12.0-18.0); LYMPHOCYTES # (AUTO) 0.9 K/uL (2.0-11.5); LYMPHOCYTES % (AUTO) 11.5 % (20.5-51.1); MEAN CORPUSCULAR HEMOGLOBIN 25 pg (27-31); MEAN CORPUSCULAR HGB CONC 31 g/dL (33-37); MEAN CORPUSCULAR VOLUME 80.3 fL (80-94); MONOCYTES # (AUTO) 0.7 K/uL (0.8-1.0); MONOCYTES % (AUTO) 8.6 % (1.7-9.3); NEUTROPHILS # (AUTO) 6.2 K/uL (1.8-7.7); NEUTROPHILS % (AUTO) 77.4 % (42.2-75.2); PLATELET COUNT (AUTO) 173 K/uL (140-450); RED BLOOD CELL COUNT(AUTO) 3.83 MIL/uL (4.20-6.10); RED CELL DISTRIBUTION WIDTH 15.4 % (11.6-13.7); WHITE BLOOD COUNT (AUTO) 8.1 K/uL (4.8-10.8)
[2020-04-14 07:51] LABS: ANION GAP 8.5 (8-16); CHLORIDE 104 mmol/L (98-107); CREATININE 1.6 mg/dL (0.6-1.3); GLUCOSE 117 mg/dL (74-106); POTASSIUM 4.5 mmol/L (3.5-5.1); SODIUM SERUM 142 mmol/L (136-145); UREA NITROGEN, BLOOD 19 mg/dL (7-18)
[2020-04-14] MEDS: INSULIN LANTUS 100 UNITS/ML 10 ML VIAL SUBQ SCH (08:41)
[2020-04-14] MEDS: FUROSEMIDE 40 MG/4 ML VIAL IVP SCH (08:43)
[2020-04-14] MEDS: PANTOPRAZOLE 40 MG INJ VIAL IVP SCH (08:47)
[2020-04-14] MEDS: CALCIUM ACETATE 667 MG TAB PO SCH ×3 (08:49→16:16)
[2020-04-14] MEDS: carvediloL 3.125 MG TAB PO SCH (08:49)
[2020-04-14] MEDS: amLODIPine 5 MG TAB PO SCH (08:49)
[2020-04-14] MEDS: FERROUS SULFATE 325 MG TABEC PO SCH ×2 (08:50→21:22)
[2020-04-14] MEDS: levETIRAcetam 100 MG/ML ORASYR PO SCH ×2 (08:51→21:15)
[2020-04-14] MEDS ORDERED: hydroCHLOROthiazide 25 MG TAB PO SCH (09:00)
--- NOTE | 2020-04-14 09:28 | NUR ---
RECEIVED ON A VAPOTHERM HIGH FLOW WITH COMPRESSOR ON AND FUNCTIONING WELL PLUGGED INTO RED OUTLET TO A HIGH FLOW NASAL CANNULA LOC AWAKE GOOD CHEST RISE AIRWAY PATENT SATURATION 97% ON FIO2 OF 35% TITRATED FIO2 TO 30% Addendum: 04/14/20 at 0941 by Homar Crowe RT AISHA/JUDY NOTIFIED OF FIO2 CHANGE
--- NOTE | 2020-04-14 09:34 | NUR ---
SCHEDULED MEDICATION GIVEN. PATIENT IN BED AWAKE. NO DISTRESS NOTED. WILL CONTINUE TO MONITOR NEEDED.
[2020-04-14] MEDS: MUPIROCIN CA NASAL 2% 1GM TUBE NS SCH (11:17)
[2020-04-14] MEDS: CHLORHEXADINE GLUC 2% CLOTH TP SCH (11:17)
--- NOTE | 2020-04-14 11:30 | NUR ---
PATIENT BP IS 208/72. DR. RAHMAN MADE AWARE SINCE PATIENT HAD NO PRN BP MEDICATIONS.
[2020-04-14] MEDS ORDERED: hydrALAZINE 20 MG/ML VIAL IVP SCH (11:40)
--- NOTE | 2020-04-14 12:01 | NUR ---
SCHEDULED MEDICATIONS DUE GIVEN TO PATIENT. WILL REASSESS BP AT SCHEDULED TIME.
[2020-04-14] MEDS: hydrALAZINE 25 MG TAB PO PRN ×2 (13:07→21:15)
--- NOTE | 2020-04-14 13:11 | NUR ---
REASSESSED PATIENTS BLOOD PRESSURE AND ITS NOTED 198/82, DC 73. PER DR ORDER GAVE PATIENT PRN BP MEDICATION.
--- NOTE | 2020-04-14 14:48 | NUR ---
AWAKE STABLE GOOD CHEST RISE AIRWAY PATENTTOLERATING VAPOTHERM TO NASAL CANNULA WELL WITH COMPLICATIONS NOTED Addendum: 04/14/20 at 1542 by Homar Crowe RT PATENTTOLERATING = PATENT TOLERATING
--- NOTE | 2020-04-14 15:03 | NUR ---
PATIENT IS AGITATED. SCREAMING AND TRYING TO REMOVE HIS HIGH FLOW NASAL CANULA. GAVE PRN LORAZEPAM.
[2020-04-14] MEDS: DEXT 5% /NACL 0.9% 1,000 ML IV SCH (15:36)
[2020-04-14] MEDS ORDERED: Z-GUARD PASTE TP SCH (16:15)
--- NOTE | 2020-04-14 19:00 | NUR ---
PATIENT RECEIVED IN BED ALERT AND ORIENTED X 1. ON BIPAP FIO2 60% RATE 24 ECAP 6 TV 500 OXYGEN SATURATION 85-100%, SKIN INTACT SINUS BRADYCARDIA AND NPO EXCEPTS MEDS, WITH SEGURA CATHETER, IV INTACT ON LEFT HAND, BED BOUND, EYE OPENING,CT HEAD NEGATIVE, CHEST XRAY WITH SMALL BILATERAL EFFUSION, CHF. SAFETY MEASURES IN PLACE AND CALL LIGHT WITHIN REACH. WILL CONTINUE TO MONITOR. FALL AND SAFETY PRECAUTIONARY MEASURES MAINTAINED. MAXIMAL CARE RENDERED. RN CONTINUE WITH MEDICAL PLAN OF CARE. DISCUSSED WITH PATIENT MEDICAL PLAN OF CARE. REINFORCEMENT CONTINUED. PATIENT REQUIRES PROMPTING AND QUEING. MAXIMAL CARE RENDERED. NO ACUTE DISTRESS NOTED.
--- NOTE | 2020-04-14 19:36 | NUR ---
ENDORSED TO ROD HANGER NURSE. PATIENT IS STABLE.
[2020-04-14] MEDS ORDERED: MEROPENEM 500 MG in NACL 0.9% 50 ML IV SCH (21:00)
[2020-04-14] MEDS ORDERED: MEROPENEM 1,000 MG in NACL 0.9% 100 ML IV SCH (21:00)
[2020-04-14] MEDS ORDERED: carvediloL 6.25 MG TAB PO SCH (21:00)
--- NOTE | 2020-04-14 21:00 | NUR ---
PATIENT RESTING COMFORTABLY IN BED. NO S/S ACUTE DISTRESS. CONTINUES ON HI TABATHA, O2SAT 94%. NO S/S RESPIRATORY DISTRESS. CALL LIGHT WITHIN REACH. FREQUENT ROUNDS BY ALL STAFF. MAXIMAL CARE RENDERED. FALL AND SAFETY PRECAUTIONARY MEASURES CONTINUED. NO ACUTE DISTRESS NOTED.
[2020-04-14] MEDS: TAMSULOSIN 0.4 MG CAP PO SCH (21:15)
[2020-04-14] MEDS: ATORVASTATIN 20 MG TAB PO SCH (21:16)
--- NOTE | 2020-04-14 23:00 | NUR ---
PATIENT RESTING COMFORTABLY IN BED. REPOSITIONED WITH 2 PERSON ASSISTANCE. CONTINUES ON HI TABATHA, O2SAT 94%. NO ACUTE DISTRESS NOTED. CALL LIGHT WITHIN REACH. FREQUENT ROUNDS BY ALL STAFF. MAXIMAL CARE RENDERED. FALL AND SAFETY PRECAUTIONARY MEASURES CONTINUED. NO ACUTE DISTRESS NOTED.
[2020-04-14] MEDS ORDERED: CLONIDINE HYDROCHLORIDE 0.1 MG TAB PO PRN (23:10)
--- NOTE | 2020-04-15 00:22 | NUR ---
PATIENT OBSERVED DURING ROUNDING WITH PULSE, RESPIRATION OR BLOODPRESSURE. PATIENT CODE STATUS NOTED IS DNR. PATIENT CODE STATUS NOTED DNR. CHARGE NURSE AND PHYSICIAN NOTIFIED. Addendum: 04/15/20 at 0039 by Emy Thomas RN RN PATIENT OBSERVED DURING ROUNDING WITH NO PULSE, RESPIRATION OR BLOODPRESSURE. PATIENT CODE STATUS NOTED IS DNR. CHARGE NURSE NOTIFIED.
--- NOTE | 2020-04-15 00:22 | NUR ---
PATIENT OBSERVED DURING ROUNDING WITH NO PULSE, RESPIRATION OR BLOODPRESSURE. PATIENT CODE STATUS NOTED IS DNR. CHARGE NURSE AND PHYSICIAN NOTIFIED.
--- NOTE | 2020-04-15 01:50 | NUR ---
CALLED LEOPOLDO VALENTIN PTS SISTER SINCE SHE DOESN'T HAVE ANY MORTUARY ARRANGED AND NO PREFERRED MORTUARY TO LET HER KNOW THAT THE HOSPITAL IS AFFILIATED WITH [facility] IN [place] IS SHE IS [place], SHE STATED "THAT'S FINE".
--- NOTE | 2020-04-15 07:00 | NUR ---
CALLED JO RAHMAN TO INQUIRE ON WHEN CAN THEY INVESTIGATOR [employer]ARCOT[employer] THE BODY, SPOKE TO LUIS THAT THE EARLIEST SLOT FOR APPOINTMENT IS ON APRIL 25 AT 0900, FOLLOW UP CALL TO LEOPOLDO AND MADE HER AWARE TO CALL FOR APPT ON APRIL 25 AT 0900 AND IF THEY HAVE AN AGREEMENT THEY WILL IN[facility] [employer] B[facility] HERE.
== END 2020-04-15 00:22 | DRG 871 ==
LOC: MED 16:23 → MTU 20:10
PROVIDERS: ADMIT Family Medicine; ATTEND Family Medicine
PROC: 5A09457 Assistance with Respiratory Ventilation, 24-96 Consecutive Hours, Continuous Positive Airway Pressure (ICD-10-PCS; principal; 2020-04-10)
PROC: 5A09357 Assistance with Respiratory Ventilation, Less than 24 Consecutive Hours, Continuous Positive Airway Pressure (ICD-10-PCS; 2020-04-12)
PROC: 5A0935A Assistance with Respiratory Ventilation, Less than 24 Consecutive Hours, High Flow/Velocity Cannula (ICD-10-PCS; 2020-04-12)
PROC: 5A09357 Assistance with Respiratory Ventilation, Less than 24 Consecutive Hours, Continuous Positive Airway Pressure (ICD-10-PCS; 2020-04-13)
PROC: 5A0935A Assistance with Respiratory Ventilation, Less than 24 Consecutive Hours, High Flow/Velocity Cannula (ICD-10-PCS; 2020-04-13)
PROC: 5A0935A Assistance with Respiratory Ventilation, Less than 24 Consecutive Hours, High Flow/Velocity Cannula (ICD-10-PCS; 2020-04-14)
DX: A41.9 Sepsis, unspecified organism (principal); J96.21 Acute and chronic respiratory failure with hypoxia; I50.43 Acute on chronic combined systolic (congestive) and diastolic (congestive) heart failure; G93.41 Metabolic encephalopathy; J96.22 Acute and chronic respiratory failure with hypercapnia; J69.0 Pneumonitis due to inhalation of food and vomit; I13.0 Hypertensive heart and chronic kidney disease with heart failure and stage 1 through stage 4 chronic kidney disease, or unspecified chronic kidney disease; J44.0 Chronic obstructive pulmonary disease with (acute) lower respiratory infection; J98.11 Atelectasis; N17.9 Acute kidney failure, unspecified; E44.1 Mild protein-calorie malnutrition; E11.22 Type 2 diabetes mellitus with diabetic chronic kidney disease; E66.9 Obesity, unspecified; G30.9 Alzheimer's disease, unspecified; F02.80 Dementia in other diseases classified elsewhere, unspecified severity, without behavioral disturbance, psychotic disturbance, mood disturbance, and anxiety; Z66 Do not resuscitate; Z20.822 Contact with and (suspected) exposure to COVID-19; G89.4 Chronic pain syndrome; G40.909 Epilepsy, unspecified, not intractable, without status epilepticus; E78.5 Hyperlipidemia, unspecified; E86.0 Dehydration; E83.51 Hypocalcemia; N40.0 Benign prostatic hyperplasia without lower urinary tract symptoms; E87.5 Hyperkalemia; N18.32 Chronic kidney disease, stage 3b; E83.39 Other disorders of phosphorus metabolism; E03.9 Hypothyroidism, unspecified; I46.9 Cardiac arrest, cause unspecified; Z82.49 Family history of ischemic heart disease and other diseases of the circulatory system; Z79.4 Long term (current) use of insulin; Z79.899 Other long term (current) drug therapy; Z68.34 Body mass index [BMI] 34.0-34.9, adult
CPT/HCPCS: 36415; 36600; 70450; 71045; 80048; 80053; 80305; 81001; 82150; 82803; 82948; 83036; 83605; 83690; 83735; 83880; 84100; 84436; 84439; 84443; 84479; 84484; 85025; 85610; 87040; 87081; 87086; 92610; 92700; 93005; 94660; 96361; 96365; 99291; C9113; G0482; J0360; J1644; J1815; J1940; J2060; J2185; J2543; J7042; J7060